=== PATIENT | male | born 1985 | race Caucasian/White ===

== ENCOUNTER 2016-04-19 16:51 | Inpatient (IN) | payer MEDICAID, OTHER ==
[~2016-04-19] VITALS: Ht 177.8 cm; Wt 76.5 kg
[~2016-04-19 16:51] MED LIST: DEPA500T OR; DEPA500T2 OR; RISP2TAB12 OR; TRAZ100T OR
[2016-04-19 18:08] LABS: MEAN CORPUSCULAR HEMOGLOBIN 33.1 pg (27.0-33.0); MEAN CORPUSCULAR HGB CONC 35.3 g/dl (32.0-36.5); MEAN CORPUSCULAR VOLUME 93.8 fl (80.0-96.0); RED CELL DISTRIBUTION WIDTH 11.2 % (11.5-14.5); WHITE BLOOD COUNT 6.6 K/mm3 (4.0-10.0)
[2016-04-19 18:30] LABS: ALBUMIN/GLOBULIN RATIO 1.54 (1.00-1.93); ALKALINE PHOSPHATASE 66 U/L (45-117); ALT/SGPT 22 U/L (12-78); ANION GAP 11 MEQ/L (8-16); AST/SGOT 23 U/L (15-37); BILIRUBIN,DIRECT 0.2 MG/DL (0.0-0.2); BILIRUBIN,TOTAL 0.7 MG/DL (0.2-1.0); BLOOD UREA NITROGEN 7 MG/DL (7-18); CALCIUM LEVEL 8.4 MG/DL (8.5-10.1); CARBON DIOXIDE LEVEL 23 MEQ/L (21-32); CHLORIDE LEVEL 107 MEQ/L (98-107); CREATININE FOR GFR 0.84 MG/DL (0.70-1.30); GLOMERULAR FILTRATION RATE > 60.0 (>60); GLUCOSE, FASTING 96 MG/DL (70-105); POTASSIUM SERUM 3.8 MEQ/L (3.5-5.1); SODIUM LEVEL 141 MEQ/L (136-145); TOTAL PROTEIN 6.6 GM/DL (6.4-8.2)
[2016-04-19] MEDS ORDERED: HALOPERIDOL 10 MG TAB PO STA (19:11)
[2016-04-19] MEDS ORDERED: diphenhydrAMINE 25 MG CAP PO ONE (19:15)
[2016-04-19 19:16] LABS: METHADONE URINE NEGATIVE (NEGATIVE)
[2016-04-19] MEDS ORDERED: diphenhydrAMINE INJ 50MG/ML VIAL (J1200) IM STA ×2 (19:58→21:48)
[2016-04-19] MEDS ORDERED: LORazepam 2 MG/ML VIAL (J2060) IM STA ×2 (19:58→21:48)
[2016-04-19] MEDS ORDERED: SERT-138 PO (20:45)
[2016-04-19] MEDS ORDERED: MOM 30ML SUSPENSION UDC PO PRN (20:45)
[2016-04-19] MEDS ORDERED: NICOTINE 21MG/24HR 1 EA TRANSDERMAL TD ONE (21:00)
[2016-04-19] MEDS ORDERED: HALOPERIDOL 5 MG/ML VIAL (J1630) IM STA (21:48)
[2016-04-20] MEDS ORDERED: LORazepam 2 MG/ML VIAL (J2060) IM STA (05:30)
[2016-04-20] MEDS ORDERED: diphenhydrAMINE INJ 50MG/ML VIAL (J1200) IM STA (05:30)
[2016-04-20] MEDS ORDERED: HALOPERIDOL 5 MG/ML VIAL (J1630) IM STA (05:30)
[2016-04-20 07:10] VITALS: BP 127/77
[2016-04-20] MEDS: MULTIVITAMINS/MINERALS THERAP 1 TAB PO SCH (09:00)
[2016-04-20] MEDS: THIAMINE 100 MG TAB PO SCH (09:00)
[2016-04-20] MEDS: LORazepam 2 MG TAB PO PRN ×2 (13:46→17:46)
[2016-04-20] MEDS: ACETAMINOPHEN TAB 650MG DOSE (2X325MG) PO PRN (13:47)
[2016-04-20] MEDS: HALOPERIDOL 5 MG TAB PO PRN ×2 (13:47→17:46)
[2016-04-20] MEDS: diphenhydrAMINE 50 MG CAP PO PRN (17:46)
[2016-04-20] MEDS: NICOTINE 21MG/24HR 1 EA TRANSDERMAL TD SCH (17:46)
[2016-04-20 18:00] VITALS: BP 110/52
[2016-04-21] MEDS: traZODone 50 MG TAB PO PRN ×2 (01:18→21:41)
[2016-04-21] MEDS: HALOPERIDOL 5 MG TAB PO PRN ×3 (01:18→16:30)
[2016-04-21] MEDS: LORazepam 2 MG TAB PO PRN ×3 (01:18→19:54)
[2016-04-21] MEDS: diphenhydrAMINE 50 MG CAP PO PRN ×3 (01:18→19:54)
[2016-04-21] MEDS: NICOTINE 21MG/24HR 1 EA TRANSDERMAL TD SCH (07:44)
[2016-04-21] MEDS: MULTIVITAMINS/MINERALS THERAP 1 TAB PO SCH (09:00)
[2016-04-21] MEDS: THIAMINE 100 MG TAB PO SCH (09:00)
[2016-04-21] MEDS: ACETAMINOPHEN TAB 650MG DOSE (2X325MG) PO PRN (14:55)
[2016-04-21 18:00] VITALS: BP 118/68
[2016-04-22 06:19] VITALS: BP 116/71
[2016-04-22] MEDS: THIAMINE 100 MG TAB PO SCH (08:25)
[2016-04-22] MEDS: MULTIVITAMINS/MINERALS THERAP 1 TAB PO SCH (08:25)
[2016-04-22] MEDS: NICOTINE 21MG/24HR 1 EA TRANSDERMAL TD SCH (09:00)
[2016-04-22] MEDS: ACETAMINOPHEN TAB 650MG DOSE (2X325MG) PO PRN ×2 (10:20→20:17)
[2016-04-22] MEDS: MAALOX 30 ML SUSP *UDC PO PRN (13:32)
[2016-04-22] MEDS: HALOPERIDOL 5 MG TAB PO PRN (17:20)
[2016-04-22] MEDS: diphenhydrAMINE 50 MG CAP PO PRN (17:21)
--- NOTE | 2016-04-22 17:25 | HPE ---
DATE OF ADMISSION: 04/19/2016 HISTORY OF THE PRESENT ILLNESS: Please refer to psychiatric history and evaluation. This examination and history performed 04/20/2016 is intended for medical issues which may need treatment, followup, or consult on this 30-year-old male. PRIMARY CARE PROVIDER: Dr. Rodriguez in [place]. ALLERGIES: No known allergies. SOCIAL HISTORY: He is single. He would not answer if he drank or smoked drugs. He was slightly belligerent and uncooperative. Recreational drugs: Urine was positive for marijuana. PAST MEDICAL HISTORY: Bipolar disorder. PAST SURGICAL HISTORY: Unknown; he would not answer. HOME MEDICATIONS: - sertraline 100 mg by mouth daily LABORATORY STUDIES: WBC 6.6, hemoglobin 16.2, hematocrit 45.9, platelets 259. Electrolytes were normal. BUN and creatinine was 7 and 0.84. Calcium was 8.4. Urine was positive for cannabinoids. FAMILY HISTORY: Noncontributory. REVIEW OF SYSTEMS: The patient was uncooperative, slightly belligerent, agitated. He did not participate in review of systems. PHYSICAL EXAMINATION: He did allow a limited physical exam. A 30-year-old male, alert and oriented. Height 70 inches, weight 79.37 kg. Body mass index (BMI) 25.1. Blood pressure 132/77, pulse 90, respirations 16, temperature 96.7, oxygen saturation 97% on room air. The patient is alert and oriented times three. Pupils are equal and reactive to light. Extraocular movements intact. Cornea and sclerae clear. Conjunctivae is normal. No facial asymmetry. Pharynx: Tongue and gums pink and moist. Tongue is midline. Neck is supple without lymphadenopathy. No thyromegaly. No goiter. Chest is clear to auscultation without wheeze or retractions. Heart is regular. Abdomen is benign. Bowel sounds are positive. Genital/Rectal: Not done. Extremities show equal strength, full range of motion. No cyanosis, clubbing or edema. He had a few superficial abrasions on the back of his hands. Peripheral pulses equal and palpable bilaterally. IMPRESSION AND PLAN: Psychiatric plan per psychiatry. No acute medical issues.
[2016-04-22] MEDS: LORazepam 2 MG TAB PO PRN (17:45)
[2016-04-22 18:00] VITALS: BP 131/82
--- NOTE | 2016-04-22 18:58 | HPEPDOC ---
[facility] History & Physical History and Physical DATE OF ADMISSION: Apr 19, 2016 at 20:31 CHIEF COMPLAINT: "My mother's boyfriend was trashing my mother's house and that made me mad." HISTORY OF THE PRESENT ILLNESS: Patient is a 30-year-old male who is unable to answer typewriter assembler's questions directly pertaining to events which led to his current hospitalization. Patient does confirm that he has had 1 prior hospitalization in 2009 for presentation of similar symptoms. Per ER record, [facility] called police for what they believe to be substance-induced psychosis and patient was brought in to [facility] ER. Patient was uncooperative in the emergency room, exhibiting restless, agitated behavior and engaged in yelling and spitting, displayed depressed, elevated, and euphoric moods, paranoia. Patient is calm and makes effort to be cooperative at time of assessment, denies experiencing current anxiety or depression, denies suicidal and homicidal ideation, denies audiovisual hallucinations, and denies urge to engage in self-injurious behavior. Patient denies history of suicide attempt or self-injurious behavior. Per ER record patient has experienced the following symptoms/problems within the past 2 weeks: Anger, decreased appetite, depressed mood, drug abuse, hallucinations, helpless/hopelessness, distracted behavior and hyperactivity, medication noncompliance, poor concentration, psychosis, reduced sleep, and suicidal ideation. Per ER record, patient may have also stolen his mother's boyfriends lithium medication. Patient had apparently attempted to seek treatment at [facility], for some reason ended up at primary care who prescribed patient Zoloft. Per ER report, patient's mother had indicated to ER staff the patient had become increasingly bizarre for the past 2 weeks talking to himself and God, isolating to home, labile mood, drug use, believes that demons were going to "get everyone," and at one point broke a clock in effort to "set time back." ER report also indicates that patient has been noncompliant with treatment and medications since his discharge from inpatient treatment in 2009 at which time he was discharged with a diagnosis of bipolar disorder. Patient endorses history of discomfort in social settings, denies panic, impulse control, compulsive behavior, irritability and agitation, denies history of being aggressive toward others and indicates he does not have access to weapons. Patient states he has been struggling with sleep challenges, both latency and maintenance. Patient denies symptoms of reexperiencing, avoidance, and hypervigilance, denies dissociative symptoms and describes his mood is level denying symptoms of hypomania and lovely. Patient describes his appetite as "good," and denies challenges with concentration and focus. Patient informed typewriter assembler during assessment that his primary care had been prescribing him Zoloft 100 mg po q day. Patient states medication was "very effective," notes current symptoms began when patient abruptly discontinued medication approximately 2 weeks ago. Patient states he had been taking Zoloft for about one month. Patient denies all symptoms of mood lability in connection with medication, informs typewriter assembler "I only started to have a problem with my mood when I got here and they wouldn't let me go." After completing assessment typewriter assembler consulted with safety aids, behavioral health worker, and patient's nurse who agreed with typewriter assembler's assessment that patient appeared safer discontinuing one-to-one observation. However, later in shift, typewriter assembler was informed by marine safety officer that patient had been making threats against staff. Patient was placed back on one-to-one observation, will reevaluate need to continue in morning. PAST PSYCHIATRIC HISTORY: Prior Psychiatric Disorder: Bipolar disorder, mixed, polysubstance use disorder , impulse control disorder, MDD, oppositional defiant disorder, personality disorder, treatment noncompliance Outpatient Treatment: [facility] 7 years ago, until recently was seeing his PCM who was prescribing patient Zoloft Suicidal/Self injurious: Patient denies history of suicide attempts, per EMR records, has a history of threatening family members when agitated, at one point plan to kill his stepfather and then hang himself Psychotropic Medication History: Patient was discharged from inpatient treatment in 2009 on a medication regimen including Depakote 500 mg po BID, Risperdal 2 mg po hs, and trazodone 100 mgpo hs. Patient indicates he "hated" the medications. Was recently prescribed Zoloft by PCM. ALLERGIES: Please see below. HOME MEDICATIONS: Per record as follows: See below PAST MEDICAL/SURGICAL HISTORY: Asthma. Patient denies history of seizure or head injury, has scattered abrasions to hands. FAMILY PSYCHIATRIC HISTORY: Patient declines to provide specific answers, indicates he has had multiple family members who have experienced mental illness and whom have made suicide attempts and committed suicide. SOCIAL HISTORY: Patient indicates he was born and raised in the [facility], has lived in several locations which she declines to elaborate on, states he currently lives with his mother. Patient denies history of abuse, trauma, or witnessing domestic violence in the home while growing up. Patient states he is never had a girlfriend with 3 children, is evasive regarding when relationship ended, indicates he has no children of his own. Patient states he completed the 11th grade in high school and completed the GED. 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 Patient states he has friends in the area and supportive family, indicates he feels he has an adequate support system. SUBSTANCE ABUSE HISTORY: Patient states he smokes approximately half a pack of cigarettes per day, smokes marijuana 2-3 times per week, denies all other current substance use or abuse. Patient notes she quit heroin approximately 8 months ago, states he snorted, denies IV use, describes drug use background including smoking crack cocaine, snorting heroin and taking pills. Per EMR, however, patient also has history of using alcohol, PCP, methamphetamine. LEGAL HISTORY: Patient denies VITAL SIGNS: B/P 116/71, P 93, R 16, T 96.6. LABORATORY DATA: Please see below. Labs on admission indicates elevated MCH, low RDW, calcium Valproic acid 04/19/16 low at 3.0 UDS positive for cannabinoids [place] level ordered date of entry EKG pending MENTAL STATUS EXAMINATION: Patient is a 30-year old male, who is calm, cooperative at times, evasive and refusing to answer questions at other times, appears disheveled, dressed in hospital clothing, makes poor eye contact, ambulates with steady gait, appears stated age. Speech: Is pressured at times, somewhat tangential, of normal rhythm and volume , coherent. Language skills are intact. Thought processes: Generally clear, goal-directed at times it other times tangential, disorganized at times Thought content: At times logical, at times illogical, did not appear to be responding to internal stimuli at time of assessment Abstract reasoning, and computation: Requires further evaluation. Description of associations: Loose, tangential, generally redirectable. Description of abnormal or psychotic thoughts: denies hallucinations, delusions , preoccupation with violence, homicidal or suicidal ideation, and obsessions, some grandiosity observed and marine safety officer informed typewriter assembler that patient had made threats against staff. Judgment: Poor. Insight: very limited/good/fair/poor. Orientation to time, place and person. Recent and remote memory: Requires further evaluation Attention span and concentration: Limited. Language: Normal. Fund of knowledge: Requires further evaluation. Mood: "Amazing, I'm so happy that I'm getting help now." Patient appears depressed and anxious, mood lability noted. Affect: Blunted. DIAGNOSES: Unspecified mood disorder, polysubstance use disorder, rule out bipolar disorder, mixed, rule out substance-induced mood disorder, rule out oppositional defiance disorder, rule out impulse control disorder, rule out MDD with psychotic features ASSESSMENT: Patient was taken off of one-to-one observation temporarily but placed back on one-to-one observation when it was made known to this typewriter assembler that patient was making threats against staff. Patient attempted to attend 1 group today and walked out, return to his room, has been isolative to room, calm and cooperative for most of day, however, became agitated later in shift, was provided with PRN medications to which she responded well and denied medication side effects. Patient denies suicidal and homicidal ideation but will remain on one-to-one with reevaluation to occur tomorrow morning. Will monitor patient's response to PRN cocktail and evaluate patient as he continues to clear from what appears to be a substance-induced mood episode. Patient denies medication side effects. Medication options were discussed with patient who is currently refusing to consider medications, will readdress with patient tomorrow. Patient is notably calmer and more cooperative than he was in the emergency room and, per EMR, continues to stabilize. Will evaluate patient safety, resolution of agitation, suicidal and homicidal ideation, and discharge readiness. care coordinator will begin collecting collateral information to facilitate effective treatment and discharge planning for patient. Patient states when he is prepared for discharge he plans to return home with mother and participate in outpatient medication management services. PROBLEM LIST: Suicidal/homicidal ideation Depression Anxiety Aggression Self-care deficit Substance abuse Lovely Poor impulse control Ineffective coping Altered mental status Noncompliance INITIAL TREATMENT PLAN: 1. Patient was admitted on a 9.39 legal status. 2. Complete history was obtained. 3. With patients permission, family will be contacted and database will be expanded. 4. Patients medication regimen will be reviewed and changed accordingly. 5. Patient will be provided with protected environment. 6. Patient will be treated with individual, group, and milieu therapies. 7. Patient will receive supportive psych-education. 8. Discharge planning will commence immediately. 9. Outpatient follow-up treatment will be strongly recommended. 10. The initial treatment plan will focus initially on: * Depression. * Risk for suicide. * Substance abuse. ESTIMATED LENGTH OF STAY: 5-7 DAYS. TIME SPENT COUNSELING AND COORDINATING INITIAL CARE: 50 minutes. Medications Scheduled Sertraline HCl (Sertraline HCl) 100 Mg Tab 100 MG PO DAILY (Reported) Allergies Coded Allergies: No Known Allergies (Verified Allergy, Unknown, 11/21/09) Dodie Fontaine Apr 22, 2016 18:58
[2016-04-22] MEDS: traZODone 50 MG TAB PO PRN (20:17)
[2016-04-23 06:00] VITALS: BP 135/71
[2016-04-23] MEDS: ACETAMINOPHEN TAB 650MG DOSE (2X325MG) PO PRN ×2 (06:27→17:33)
[2016-04-23] MEDS: MULTIVITAMINS/MINERALS THERAP 1 TAB PO SCH (07:59)
[2016-04-23] MEDS: THIAMINE 100 MG TAB PO SCH (07:59)
[2016-04-23] MEDS: NICOTINE 21MG/24HR 1 EA TRANSDERMAL TD SCH (08:00)
[2016-04-23] MEDS: HALOPERIDOL 5 MG TAB PO PRN ×2 (09:40→17:32)
--- NOTE | 2016-04-23 15:53 | IPNPDOC ---
[facility] Progress Note Progress Note DATE OF SERVICE: 04/23/16 HISTORY: Director Of Curriculum met with patient today to assess treatment progress on the inpatient unit. Patient appears calm her and consultation with staff indicates that patient has not been a behavioral management problem and is no longer making threats directed towards staff. One-to-one observation status was discontinued. Patient has utilized PRN Haldol 1 today, is calm and cooperative at time of interaction. Patient states he has made efforts to attend groups, walked out of a group yesterday and states he left group this morning due to elbow pain. Patient is superficially compliant, denies symptoms of anxiety and depression, denies suicidal and homicidal ideation, denies audiovisual hallucinations, and denies urge to engage in self-injurious behavior. Director Of Curriculum attempted to discuss medication options with patient who stated, "I'll take whatever you want me to take," then noted he is not interested in taking medication regimen (Depakote and Risperdal) on which he was discharged from Hospital during last inpatient treatment. Patient continues to present as disorganized and is tangential, is not observed to be responding to internal stimuli at time of interaction, however, per staff report symptoms have been observed in addition to congregational preoccupation. Patient denies irritability, agitation, and denies mood lability. Patient reports difficulty with sleep maintenance, states appetite, concentration and focus, and energy level are stable. VITALS: See below NEW TEST RESULTS: Please see below. Labs on admission indicates elevated MCH, low RDW, calcium. Patient reports history of asthma, denies history of seizure or head injury, has scattered abrasions to hands. Valproic acid 04/19/16 low at 3.0 [place] level 04/22/16 low at 0.2 UDS positive for cannabinoids [place] level ordered date of entry EKG pending CURRENT MEDICATIONS: See below MENTAL STATUS EXAMINATION: Patient is a 30-year old male, who is calm, cooperative at times, evasive, superficially compliant, superficially bright, appears disheveled, dressed in hospital clothing, makes poor eye contact, ambulates with steady gait, appears stated age. Speech: Is pressured at times, somewhat tangential, of normal rhythm and volume , coherent. Language skills are intact. Thought processes: Generally clear, goal-directed at times it other times tangential, disorganized at times Thought content: At times logical, at times illogical, did not appear to be responding to internal stimuli at time of assessment Abstract reasoning, and computation: Requires further evaluation. Description of associations: Loose, tangential, generally redirectable. Description of abnormal or psychotic thoughts: denies hallucinations, delusions , preoccupation with violence, homicidal or suicidal ideation, and obsessions, some grandiosity observed. Judgment: Poor. Insight: Poor. Orientation to time, place and person. Recent and remote memory: Requires further evaluation Attention span and concentration: Limited. Language: Normal. Fund of knowledge: Requires further evaluation. Mood: "I feel fine, I think I should be discharged." Patient appears depressed and anxious, mood lability noted. Affect: Blunted. DIAGNOSES: Unspecified mood disorder, polysubstance use disorder, rule out bipolar disorder, mixed, rule out substance-induced mood disorder, rule out oppositional defiance disorder, rule out impulse control disorder, rule out MDD with psychotic features ASSESSMENT: Patient was taken off of one-to-one observation today. Patient attempted to attend 1 group today but left group complaining of elbow pain and return to his room. Patient remains isolative but has been calm and cooperative , displaying no signs of aggression or agitation. Patient has taken Haldol PRN 1 today with good effect, has not needed Ativan. Patient denies medication side effects. Patient continues to clear, appears less disorganized than yesterday, is able to engage better for assessment purposes, however, remains superficial in his interactions, minimizes his symptoms, and states he feels he does not need to be in the hospital. Patient continues to report sleep related challenges , is agreeable to trialing Seroquel at bedtime in effort to improve sleep and stabilize mood. Will continue to monitor patient's response to PRN medications and Seroquel as he continues to clear from what appears to be a substance- induced mood episode. Will monitor patient's response to medications, medication side effects, and will evaluate patient safety, resolution of suicidal and homicidal ideation, and discharge readiness. stars coordinator will continue to collect collateral information to facilitate effective treatment and discharge planning for patient. Patient states when discharged he plans to return home with mother and participate in outpatient medication management services. MANAGEMENT PLAN: Initiate med trial Seroquel 100 mg po q hs. Continue PRN medications to address anxiety/agitation/psychosis as needed. Maintain safety precautions Patient to attend groups and participate in unit programming to develop coping strategies Engage patient in discharge planning process and arrange meeting with support system to ensure safe discharge planning when appropriate Patient to follow up with PCM upon discharge TIME SPENT: 35 minutes Vital Signs Vital Signs Date Time Temp Pulse Resp B/P Pulse Ox O2 Delivery O2 Flow Rate FiO2 04/23/16 06:00 95.8 83 16 135/71 04/20/16 05:55 Room Air 04/19/16 20:59 97 Laboratory Data 24H Labs Laboratory Tests 2 04/22/16 19:32: [place] Level < 0.20L Current Medications Current Medications Acetaminophen (Tylenol Tab) 650 mg Q6HP PRN PO HEADACHE or DISCOMFORT Last administered on 04/23/16 06:27; Start 04/19/16 at 20:45; Stop 05/19/16 at 20:44 Al Hydrox/Mg Hydrox/Simethicone (Mylanta) 30 ml Q4HP PRN PO HEARTBURN/ INDIGESTION Last administered on 04/22/16 13:32; Start 04/19/16 at 20:45; Stop 05/19/16 at 20:44 Diphenhydramine HCl (Benadryl) 50 mg Q4HP PRN PO ANXIETY/AGITATION Last administered on 04/22/16 17:21; Start 04/20/16 at 17:45; Stop 05/20/16 at 17:44 Haloperidol (Haldol) 5 mg Q4HP PRN PO AGITATION Last administered on 04/23/16 09:40; Start 04/19/16 at 20:45; Stop 05/19/16 at 20:44 Home Med (Med Rec Complete!) ASDIRECTED XX ; Start 04/19/16 at 20:45; Stop 11/26 at 20:47; Status DC Lorazepam (Ativan) 2 mg Q4HP PRN PO ANXIETY Last administered on 04/22/16 17: 45; Start 04/19/16 at 20:45; Stop 04/26/16 at 20:44 Magnesium Hydroxide (Milk Of Magnesia) 30 ml DAILYPRN PRN PO CONSTIPATION; Start 04/19/16 at 20:45; Stop 05/19/16 at 20:44 Multivitamins (Theragram-M) 1 tab DAILY PO Last administered on 04/23/16 07:59 ; Start 04/20/16 at 09:00; Stop 05/20/16 at 08:59 Nicotine (Nicoderm Cq 21mg) 1 patch DAILY TD Last administered on 04/23/16 08: 00; Start 04/20/16 at 09:00; Stop 05/20/16 at 08:59 Thiamine HCl (Thiamine HCl) 100 mg DAILY PO Last administered on 04/23/16 07: 59; Start 04/20/16 at 09:00; Stop 05/20/16 at 08:59 Trazodone HCl (Desyrel) 50 mg QHSP PRN PO INSOMNIA Last administered on 20:17; Start 04/19/16 at 20:45; Stop 05/19/16 at 20:44 Allergies Coded Allergies: No Known Allergies (Verified Allergy, Unknown, 11/21/09) Dodie Fontaine Apr 23, 2016 15:53
[2016-04-23] MEDS: diphenhydrAMINE 50 MG CAP PO PRN (17:32)
[2016-04-23] MEDS: NICOTINE POLACRILEX 2 MG GUM PO PRN ×2 (17:32→22:23)
[2016-04-23 18:00] VITALS: BP 125/66
[2016-04-23] MEDS ORDERED: QUEtiapine FUMARATE 100 MG TAB PO SCH (21:00)
[2016-04-23] MEDS ORDERED: LORazepam 1 MG TAB PO STA (21:01)
[2016-04-23] MEDS: BENZTROPINE 1 MG TAB PO SCH (21:16)
--- NOTE | 2016-04-24 00:45 | ECGEPIP ---
Stationary ECG Study [facility] Test Date: 2016-04-23 Pat Name: EVELIN AVILES Department: Room: [place] [address] Gender: M Color Buffer: SANJUANITA : 1985 Requested By: Adelina Lopez Order Number: [id number] Reading MD: Terrance Rojas Measurements Intervals [place] Rate: 82 P: 52 SD: 176 QRS: 57 QRSD: 107 T: 47 QT: 357 QTc: 418 Interpretive Statements SINUS RHYTHM ST ELEVATION, PROBABLY EARLY REPOLARIZATION NO PRIOR TRACING IN THE SYSTEM Electronically Signed On 04-24-2016 0:44:53 EDT by Terrance Rojas
[2016-04-24] MEDS: NICOTINE POLACRILEX 2 MG GUM PO PRN ×8 (02:14→22:53)
[2016-04-24] MEDS: MAALOX 30 ML SUSP *UDC PO PRN (02:14)
[2016-04-24 06:00] VITALS: BP 131/75
[2016-04-24] MEDS: HALOPERIDOL 5 MG TAB PO PRN ×2 (06:25→21:41)
[2016-04-24] MEDS: diphenhydrAMINE 50 MG CAP PO PRN (06:25)
[2016-04-24] MEDS: LORazepam 2 MG TAB PO PRN (06:25)
[2016-04-24] MEDS: THIAMINE 100 MG TAB PO SCH (08:24)
[2016-04-24] MEDS: BENZTROPINE 1 MG TAB PO SCH (08:24)
[2016-04-24] MEDS: MULTIVITAMINS/MINERALS THERAP 1 TAB PO SCH (08:24)
[2016-04-24 18:00] VITALS: BP 133/67
--- NOTE | 2016-04-24 18:50 | IPNPDOC ---
[facility] Progress Note Progress Note DATE OF SERVICE: 04/24/16 HISTORY: Tire Fabricator met with patient today to assess treatment progress on the inpatient unit. Patient has requested PRn medications after verbal altercation on unit which was initiated by other patients. Patient was calm, no agitation expressed noted. Patient continues to make efforts to attend groups, remains superficially compliant, denies symptoms of anxiety and depression, denies suicidal and homicidal ideation, denies audiovisual hallucinations, and denies urge to engage in self-injurious behavior. Tire Fabricator attempted to discuss medication options with patient who stated, "my meds are working great," reiterated he is will not take mood stabilizer. Patient presents as less disorganized, less tangential, is not observed to be responding to internal stimuli at time of interaction, however, per staff report symptoms have been observed in addition to jain preoccupation. Patient denies irritability, agitation, and denies mood lability. Patient reports difficulty with sleep maintenance, states appetite, concentration and focus, and energy level are stable. Of note: Nursing staff have indicated patient may be medication seeking. Patient reported EPS symptoms last night, division officer weapons department provider was called and patient was given ativan. Patient has apparently made request for prn medications without exhibiting symptoms of anxiety/agitation. VITALS: See below NEW TEST RESULTS: Please see below. Labs on admission indicates elevated MCH, low RDW, calcium. Patient reports history of asthma, denies history of seizure or head injury, has scattered abrasions to hands. Valproic acid 04/19/16 low at 3.0 [facility] level 04/22/16 low at 0.2 UDS positive for cannabinoids [facility] level ordered date of entry 04/24/[address] ELEVATION, PROBABLY EARLY REPOLARIZATION NO PRIOR TRACING IN THE SYSTEM CURRENT MEDICATIONS: See below MENTAL STATUS EXAMINATION: Patient is a 30-year old male, who is calm, cooperative at times, evasive, superficially compliant, superficially bright, displays improved hygiene, dressed in hospital clothing, makes improved eye contact, ambulates with steady gait, appears stated age. Speech: Is pressured at times, somewhat tangential, of normal rhythm and volume , coherent. Language skills are intact. Thought processes: Generally clear, goal-directed at times it other times tangential, disorganized at times Thought content: At times logical, at times illogical, did not appear to be responding to internal stimuli at time of assessment Abstract reasoning, and computation: Requires further evaluation. Description of associations: Loose, tangential, generally redirectable. Description of abnormal or psychotic thoughts: denies hallucinations, delusions , preoccupation with violence, homicidal or suicidal ideation, and obsessions, some grandiosity observed. Judgment: Poor. Insight: Poor. Orientation to time, place and person. Recent and remote memory: Requires further evaluation Attention span and concentration: Limited. Language: Normal. Fund of knowledge: Requires further evaluation. Mood: "I'm great." Patient appears depressed and anxious, mood lability noted. Affect: Blunted, with some brightening. DIAGNOSES: Unspecified mood disorder, polysubstance use disorder, rule out bipolar disorder, mixed, rule out substance-induced mood disorder, rule out oppositional defiance disorder, rule out impulse control disorder, rule out MDD with psychotic features ASSESSMENT: Patient remains off of one-to-one observation, is attempting to attend groups, is visible walking hallways with other patients, no agitation or aggression. Patient continues to clear, appears less disorganized than yesterday , is able to engage better for assessment purposes, however, remains superficial in his interactions, minimizes his symptoms, and states he feels he does not need to be in the hospital. Patient states he is now sleeping well ( contrary to EMR), is agreable to seroquel dose increase in effort to improve sleep and stabilize mood. Will continue to monitor patient's use of and response to PRN medications and Seroquel as he continues to clear from what appears to be a substance-induced mood episode. Will monitor patient's response to medications, medication side effects, and will evaluate patient safety, resolution of suicidal and homicidal ideation, and discharge readiness. buildings and grounds coordinator will continue to collect collateral information to facilitate effective treatment and discharge planning for patient. Patient states when discharged he plans to return home with mother and participate in outpatient medication management services. MANAGEMENT PLAN: Increase Seroquel to 150 mg po q hs. Change PRN medications to q 6 hours and change ativan to 1 mg q 6 hours PRN for agitation. Discontinue Benadryl and add cogentin 1 mg po q 6 hours PRN for EPS. Maintain safety precautions Patient to attend groups and participate in unit programming to develop coping strategies Engage patient in discharge planning process and arrange meeting with support system to ensure safe discharge planning when appropriate Patient to follow up with PCM upon discharge TIME SPENT: 35 minutes Vital Signs Vital Signs Date Time Temp Pulse Resp B/P Pulse Ox O2 Delivery O2 Flow Rate FiO2 04/24/16 06:00 98.3 83 16 131/75 04/20/16 05:55 Room Air 04/19/16 20:59 97 Current Medications Current Medications Acetaminophen (Tylenol Tab) 650 mg Q6HP PRN PO HEADACHE or DISCOMFORT Last administered on 04/23/16 17:33; Start 04/19/16 at 20:45; Stop 05/19/16 at 20:44 Al Hydrox/Mg Hydrox/Simethicone (Mylanta) 30 ml Q4HP PRN PO HEARTBURN/ INDIGESTION Last administered on 04/24/16 02:14; Start 04/19/16 at 20:45; Stop 05/19/16 at 20:44 Benztropine Mesylate (Cogentin) 1 mg BID PO Last administered on 04/24/16 08: 24; Start 04/23/16 at 21:00; Stop 04/24/16 at 18:25; Status DC Benztropine Mesylate (Cogentin) 1 mg Q6HP PRN PO EPS; Start 04/24/16 at 18:30; Stop 05/24/16 at 18:29 Diphenhydramine HCl (Benadryl) 50 mg Q4HP PRN PO ANXIETY/AGITATION Last administered on 04/24/16 06:25; Start 04/20/16 at 17:45; Stop 04/24/16 at 18:41 ; Status DC Haloperidol (Haldol) 5 mg Q4HP PRN PO AGITATION Last administered on 04/24/16 06:25; Start 04/19/16 at 20:45; Stop 04/24/16 at 18:24; Status DC Haloperidol (Haldol) 5 mg Q6HP PRN PO AGITATION; Start 04/24/16 at 20:45; Stop 05/24/16 at 20:44 Home Med (Med Rec Complete!) ASDIRECTED XX ; Start 04/19/16 at 20:45; Stop 11/26 at 20:47; Status DC Lorazepam (Ativan) 1 mg Q6HP PRN PO AGITATION; Start 04/24/16 at 18:30; Stop at 18:29 Lorazepam (Ativan) 2 mg Q4HP PRN PO AGITATION Last administered on 04/24/16 06 :25; Start 04/19/16 at 20:45; Stop 04/24/16 at 18:32; Status DC Magnesium Hydroxide (Milk Of Magnesia) 30 ml DAILYPRN PRN PO CONSTIPATION; Start 04/19/16 at 20:45; Stop 05/19/16 at 20:44 Multivitamins (Theragram-M) 1 tab DAILY PO Last administered on 04/24/16 08:24 ; Start 04/20/16 at 09:00; Stop 05/20/16 at 08:59 Nicotine (Nicoderm Cq 21mg) 1 patch DAILY TD Last administered on 04/23/16 08: 00; Start 04/20/16 at 09:00; Stop 04/23/16 at 16:01; Status DC Nicotine (Nicorette) 2 mg Q2HP PRN PO NICOTINE WITHDRAWAL Last administered on 04/24/16 18:01; Start 04/23/16 at 16:00; Stop 05/23/16 at 15:59 Quetiapine Fumarate (SEROquel) 100 mg QHS PO Last administered on 04/23/16 21: 16; Start 04/23/16 at 21:00; Stop 04/24/16 at 18:24; Status DC Quetiapine Fumarate (SEROquel) 150 mg QHS PO ; Start 04/24/16 at 21:00; Stop at 20:59 Thiamine HCl (Thiamine HCl) 100 mg DAILY PO Last administered on 04/24/16 08: 24; Start 04/20/16 at 09:00; Stop 05/20/16 at 08:59 Trazodone HCl (Desyrel) 50 mg QHSP PRN PO INSOMNIA Last administered on 20:17; Start 04/19/16 at 20:45; Stop 04/23/16 at 15:54; Status DC Allergies Coded Allergies: No Known Allergies (Verified Allergy, Unknown, 11/21/09) Dodie Fontaine Apr 24, 2016 18:50 Dodie Fontaine Apr 24, 2016 18:50
[2016-04-24] MEDS ORDERED: QUEtiapine FUMARATE 50 MG TAB PO SCH (21:00)
[2016-04-24] MEDS: BENZTROPINE 1 MG TAB PO PRN (21:41)
[2016-04-24] MEDS: LORazepam 1 MG TAB PO PRN (21:41)
[2016-04-25 06:19] VITALS: BP 140/86
[2016-04-25] MEDS: THIAMINE 100 MG TAB PO SCH (08:22)
[2016-04-25] MEDS: NICOTINE POLACRILEX 2 MG GUM PO PRN ×6 (08:22→21:28)
[2016-04-25] MEDS: MULTIVITAMINS/MINERALS THERAP 1 TAB PO SCH (08:22)
[2016-04-25] MEDS: LORazepam 1 MG TAB PO PRN (14:52)
[2016-04-25] MEDS: ACETAMINOPHEN TAB 650MG DOSE (2X325MG) PO PRN (15:58)
[2016-04-25 18:00] VITALS: BP 147/74
--- NOTE | 2016-04-25 19:01 | IPNPDOC ---
[facility] Progress Note Progress Note DATE OF SERVICE: 04/25/16 HISTORY: Barn And Property Manager met with patient today to assess treatment progress on the inpatient unit. Patient has requested Ativan PRN for agitation this afternoon, story writer consulted with staff with no observations of agitation noted, Ativan PRN has been discontinued due to concerns of patient seeking medication. Patient is aware he now has hydroxyzine available to him in addition to PRN Haldol and Cogentin if needed. Patient informs story writer he is feeling "much better," has been observed to be visible on unit and attending groups. Patient remains superficially compliant, minimizes symptoms, is intermittently tangential and mood appears expansive. Patient states Seroquel continues to work well and denies medication side effects, is agreeable to dose increase. Patient states he is been sleeping well which is contrary to EMR, though sleep was improved last night after Seroquel dose increase. Patient denies symptoms of anxiety and depression, denies suicidal and homicidal ideation, denies audiovisual hallucinations, denies urge to engage in self-injurious behavior. Barn And Property Manager again attempted to discuss medication options with patient who denied interest in taking medications, reiterated he is not willing to take mood stabilizer due to "I hate them, their pollution.". Patient presents as less disorganized, does not appear to be responding to internal stimuli at time of interaction, however , is religiously preoccupied and staff has indicated they have observed symptoms of paranoia elated to patient believing a kitchen is placing food on his food tray that he does not like and/or is allergic to. Patient denies irritability, agitation, and denies mood lability. Patient states appetite, concentration and focus, and energy level are stable. Addendum: Attempts made to contact patient's mother to address medication, treatment and symptom history. Spoke with father who was unable to comment on patient's response to medications and past, verified that patient's recent med trial on Zoloft triggered symptoms of terri. Patient's father indicated patient had been doing well for years, had recently experienced social stressors including being kicked out of his girlfriend's house, termination of relationship, notes symptoms of depression began after aforementioned events, but father indicated symptoms were minimal and patient appeared to be managing. VITALS: See below NEW TEST RESULTS: Please see below. Labs on admission indicates elevated MCH, low RDW, calcium. Patient reports history of asthma, denies history of seizure or head injury, has scattered abrasions to hands. Valproic acid 04/19/16 low at 3.0 [facility] level 04/22/16 low at 0.2 UDS positive for cannabinoids [facility] level ordered date of entry 04/24/[address] ELEVATION, PROBABLY EARLY REPOLARIZATION NO PRIOR TRACING IN THE SYSTEM CURRENT MEDICATIONS: See below MENTAL STATUS EXAMINATION: Patient is a 30-year old male, who is calm, cooperative at times, evasive, superficially compliant, superficially bright, displays improved hygiene, dressed in hospital clothing, makes improved eye contact, ambulates with steady gait, appears stated age. Speech: Is pressured at times, somewhat tangential, of normal rhythm and volume , coherent. Language skills are intact. Thought processes: Generally clear, goal-directed at times it other times tangential, disorganized at times Thought content: At times logical, at times illogical, did not appear to be responding to internal stimuli at time of assessment Abstract reasoning, and computation: Requires further evaluation. Description of associations: Loose, tangential, generally redirectable. Description of abnormal or psychotic thoughts: denies hallucinations, delusions. Patient exhibits preoccupation with jewish. Patient denies homicidal or suicidal ideation, obsessions. Patient exhibits some grandiosity, possible symptoms of paranoia observed by staff. Judgment: Poor. Insight: Poor. Orientation to time, place and person. Recent and remote memory: Requires further evaluation Attention span and concentration: Limited. Language: Normal. Fund of knowledge: Requires further evaluation. Mood: "I'm feeling great, never better." Patient appears less depressed and anxious, mood is expansive, lability noted. Affect: Blunted, with some brightening. DIAGNOSES: Unspecified mood disorder, polysubstance use disorder, rule out bipolar disorder, mixed, rule out substance-induced mood disorder, rule out oppositional defiance disorder, rule out impulse control disorder, rule out MDD with psychotic features ASSESSMENT: Patient remains off of one-to-one observation, is now attending groups, is observed walking hallways socializing with other patients, no agitation or aggression. Patient continues to clear from Zoloft and/or substance use, appears less disorganized than yesterday, is able to engage better for assessment purposes, however, remains superficial in his interactions , minimizes his symptoms, exhibits expansive mood and reiterates he feels he does not need to be in the hospital. Patient states he is sleeping well ( contrary to EMR), is agreeable to seroquel dose increase in effort to further improve sleep and stabilize mood. Will continue to monitor patient's use of and response to PRN medications and Seroquel as he continues to clear from what appears to be a substance-induced mood episode. Will monitor patient's response to medications, medication side effects, and will evaluate patient safety, resolution of suicidal and homicidal ideation, and discharge readiness. supply coordinator will continue to collect collateral information to facilitate effective treatment and discharge planning for patient. Patient states when discharged he plans to return home with mother and participate in outpatient medication management services. MANAGEMENT PLAN: Increase Seroquel to 200 mg po q hs. Discontinue ativan 1 mg po q 6 hours PRN for agitation. Initiate med trial Seroquel 50 mg po q 6 hours PRN for anxiety/agitation Maintain safety precautions Patient to attend groups and participate in unit programming to develop coping strategies Engage patient in discharge planning process and arrange meeting with support system to ensure safe discharge planning when appropriate Patient to follow up with PCM upon discharge TIME SPENT: 35 minutes Vital Signs Vital Signs Date Time Temp Pulse Resp B/P Pulse Ox O2 Delivery O2 Flow Rate FiO2 04/25/16 06:19 97.9 120 20 140/86 Room Air 04/19/16 20:59 97 Current Medications Current Medications Acetaminophen (Tylenol Tab) 650 mg Q6HP PRN PO HEADACHE or DISCOMFORT Last administered on 04/25/16 15:58; Start 04/19/16 at 20:45; Stop 05/19/16 at 20:44 Al Hydrox/Mg Hydrox/Simethicone (Mylanta) 30 ml Q4HP PRN PO HEARTBURN/ INDIGESTION Last administered on 04/24/16 02:14; Start 04/19/16 at 20:45; Stop 05/19/16 at 20:44 Benztropine Mesylate (Cogentin) 1 mg BID PO Last administered on 04/24/16 08: 24; Start 04/23/16 at 21:00; Stop 04/24/16 at 18:25; Status DC Benztropine Mesylate (Cogentin) 1 mg Q6HP PRN PO EPS Last administered on 21:41; Start 04/24/16 at 18:30; Stop 05/24/16 at 18:29 Diphenhydramine HCl (Benadryl) 50 mg Q4HP PRN PO ANXIETY/AGITATION Last administered on 04/24/16 06:25; Start 04/20/16 at 17:45; Stop 04/24/16 at 18:41 ; Status DC Haloperidol (Haldol) 5 mg Q4HP PRN PO AGITATION Last administered on 04/24/16 06:25; Start 04/19/16 at 20:45; Stop 04/24/16 at 18:24; Status DC Haloperidol (Haldol) 5 mg Q6HP PRN PO AGITATION Last administered on 04/24/16 21:41; Start 04/24/16 at 20:45; Stop 05/24/16 at 20:44 Home Med (Med Rec Complete!) ASDIRECTED XX ; Start 04/19/16 at 20:45; Stop 11/26 at 20:47; Status DC Hydroxyzine HCl (Atarax) 50 mg Q6HP PRN PO anxiety/agitation; Start 04/25/16 at 20:00; Stop 04/25/16 at 20:00; Status DC Hydroxyzine HCl (Atarax) 50 mg Q6HP PRN PO anxiety/agitation; Start 04/25/16 at 21:00; Stop 05/25/16 at 20:59 Lorazepam (Ativan) 1 mg Q6HP PRN PO AGITATION Last administered on 04/25/16 14 :52; Start 04/24/16 at 18:30; Stop 04/25/16 at 16:59; Status DC Lorazepam (Ativan) 2 mg Q4HP PRN PO AGITATION Last administered on 04/24/16 06 :25; Start 04/19/16 at 20:45; Stop 04/24/16 at 18:32; Status DC Magnesium Hydroxide (Milk Of Magnesia) 30 ml DAILYPRN PRN PO CONSTIPATION; Start 04/19/16 at 20:45; Stop 05/19/16 at 20:44 Multivitamins (Theragram-M) 1 tab DAILY PO Last administered on 04/25/16 08:22 ; Start 04/20/16 at 09:00; Stop 05/20/16 at 08:59 Nicotine (Nicoderm Cq 21mg) 1 patch DAILY TD Last administered on 04/23/16 08: 00; Start 04/20/16 at 09:00; Stop 04/23/16 at 16:01; Status DC Nicotine (Nicorette) 2 mg Q2HP PRN PO NICOTINE WITHDRAWAL Last administered on 04/25/16 10:33; Start 04/23/16 at 16:00; Stop 04/25/16 at 12:15; Status DC Nicotine (Nicorette) 4 mg Q2HP PRN PO NICOTINE WITHDRAWAL Last administered on 04/25/16 16:00; Start 04/25/16 at 12:15; Stop 05/25/16 at 12:14 Quetiapine Fumarate (SEROquel) 100 mg QHS PO Last administered on 04/23/16 21: 16; Start 04/23/16 at 21:00; Stop 04/24/16 at 18:24; Status DC Quetiapine Fumarate (SEROquel) 150 mg QHS PO Last administered on 04/24/16 20: 19; Start 04/24/16 at 21:00; Stop 04/25/16 at 17:29; Status DC Quetiapine Fumarate (SEROquel) 200 mg QHS PO ; Start 04/25/16 at 21:00; Stop at 20:59 Thiamine HCl (Thiamine HCl) 100 mg DAILY PO Last administered on 04/25/16 08: 22; Start 04/20/16 at 09:00; Stop 05/20/16 at 08:59 Trazodone HCl (Desyrel) 50 mg QHSP PRN PO INSOMNIA Last administered on 20:17; Start 04/19/16 at 20:45; Stop 04/23/16 at 15:54; Status DC Allergies Coded Allergies: No Known Allergies (Verified Allergy, Unknown, 11/21/09) Dodie Fontaine Apr 25, 2016 19:01
[2016-04-25] MEDS ORDERED: hydrOXYzine 50 MG TAB PO PRN (20:00)
[2016-04-25] MEDS: HALOPERIDOL 5 MG TAB PO PRN (20:13)
[2016-04-25] MEDS: BENZTROPINE 1 MG TAB PO PRN (20:13)
[2016-04-25] MEDS: hydrOXYzine 50 MG TAB PO PRN (20:13)
[2016-04-25] MEDS ORDERED: QUEtiapine FUMARATE 200 MG TAB PO SCH (21:00)
[2016-04-26] MEDS: NICOTINE POLACRILEX 2 MG GUM PO PRN ×8 (02:43→21:11)
[2016-04-26] MEDS: BENZTROPINE 1 MG TAB PO PRN ×2 (02:45→09:29)
[2016-04-26] MEDS: hydrOXYzine 50 MG TAB PO PRN ×3 (02:45→23:03)
[2016-04-26] MEDS: HALOPERIDOL 5 MG TAB PO PRN ×2 (02:45→09:29)
[2016-04-26 06:14] VITALS: BP_SYST 137; BP_SYST 160; BP_DIAS 63; BP_DIAS 88
[2016-04-26 08:00] VITALS: BP 140/82
[2016-04-26] MEDS: MULTIVITAMINS/MINERALS THERAP 1 TAB PO SCH (08:08)
[2016-04-26] MEDS: THIAMINE 100 MG TAB PO SCH (08:09)
[2016-04-26] MEDS: ACETAMINOPHEN TAB 650MG DOSE (2X325MG) PO PRN ×3 (09:31→23:03)
[2016-04-26] MEDS: QUEtiapine FUMARATE 50 MG TAB PO PRN ×2 (12:25→22:32)
[2016-04-26 18:00] VITALS: BP 132/73
[2016-04-26] MEDS: DIVALPROEX 500MG *ER* TAB PO SCH (20:10)
[2016-04-26] MEDS: QUEtiapine FUMARATE 100 MG TAB PO SCH (20:10)
--- NOTE | 2016-04-26 20:27 | IPNPDOC ---
[facility] Progress Note Progress Note DATE OF SERVICE: 04/26/16 HISTORY: Business Line Controller met with patient today to assess treatment progress on the inpatient unit. Per EMR patient slept 1.5 hours last night, presents as more disorganized and tangential today, is irritable at times, no agitation or behavioral management challenges exhibited. Patient took Haldol and Cogentin PRN 's this morning, has been taking nighttime Seroquel, continues to refuse to take mood stabilizer. Patient has been visible on unit, walking the halls with peers, attending a few groups, remains superficially compliant, minimizes symptoms, mood remains expansive. Contrary to EMR, patient informs screen writer that Seroquel is working well and denies medication side effects. Patient indicates he has no anxiety or depression, is experiencing no audiovisual hallucinations, no suicidal or homicidal ideation, and denies urge to engage in self-injurious behavior. Patient informs screen writer he is symptom free and wants to be discharged home today. Business Line Controller again attempted to discuss medication options with patient who denied interest in taking medications, indicates he feels able to address his symptoms "naturally." Patient denies irritability, agitation, and mood lability. Patient states appetite, concentration and focus, and energy level are stable. Patient does not appear to be responding to internal stimuli at time of interaction, however, is religiously preoccupied and staff has indicated they have observed symptoms of paranoia. Patient denied symptoms of physical pain and presented with no signs of acute distress at time of interaction. 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 Clinical consultation was sought with Dr. Garcia during which patient reluctantly agreed to take Depakote at bedtime in addition to Seroquel dose increase in effort to improve sleep and stabilize mood. Addendum: Attempts made to contact patient's mother to address medication, treatment and symptom history. Business Line Controller spoke with patient's father by telephone on 04/25/16 who was unable to provide information on previous specific medication trials, verified that patient's recent med trial on Zoloft triggered symptoms of terri. Patient's father indicated patient had been doing well for years, had recently experienced social stressors including being kicked out of his girlfriend's house, termination of relationship, notes symptoms of depression began after aforementioned events, but father indicated symptoms were minimal and patient appeared to be managing prior to initiation of SSRI. VITALS: See below NEW TEST RESULTS: Please see below. Labs on admission indicates elevated MCH, low RDW, calcium. Patient reports history of asthma, denies history of seizure or head injury, has scattered abrasions to hands. Valproic acid 04/19/16 low at 3.0 [facility] level 04/22/16 low at 0.2 UDS positive for cannabinoids [facility] level ordered date of entry 04/24/[address] ELEVATION, PROBABLY EARLY REPOLARIZATION NO PRIOR TRACING IN THE SYSTEM CURRENT MEDICATIONS: See below MENTAL STATUS EXAMINATION: Patient is a 30-year old male, who is calm, cooperative at times, evasive, superficially compliant, superficially bright, displays adequate hygiene, dressed in hospital clothing, makes prolonged gaze eye contact, ambulates with steady gait, appears stated age. Speech: Is pressured, rapid at times, somewhat tangential, coherent. Language skills are intact. Thought processes: Increasingly disorganized, clear at times, intermittently tangential and goal-directed Thought content: At times logical, at times illogical, did not appear to be responding to internal stimuli at time of assessment Abstract reasoning: Limited. Description of associations: Loose, tangential, generally redirectable. Description of abnormal or psychotic thoughts: denies hallucinations, delusions. Patient exhibits preoccupation with buddhism. Patient denies homicidal or suicidal ideation, obsessions. Patient exhibits grandiosity, possible symptoms of paranoia observed by staff. Judgment: Poor. Insight: Poor. Orientation to time, place and person. Recent and remote memory: Requires further evaluation Attention span and concentration: Limited. Language: Normal. Fund of knowledge: Requires further evaluation. Mood: "I'm feeling great, never better. I'm sleeping fine and I don't need medication." Patient appears anxious, mood is expansive, lability noted. Affect: Blunted. DIAGNOSES: Unspecified mood disorder, polysubstance use disorder, rule out bipolar disorder, mixed, rule out substance-induced mood disorder, rule out oppositional defiance disorder, rule out impulse control disorder, rule out MDD with psychotic features ASSESSMENT: Patient remains off of one-to-one observation, is observed walking hallways at times socializing with other patients, no agitation or aggression. Patient continues to clear from Zoloft and/or substance use, appears increasingly disorganized, remains superficial in his interactions, minimizes his symptoms, exhibits expansive mood and reiterates he feels he does not need to be in the hospital. Patient states he is sleeping well (contrary to EMR), is agreeable to seroquel dose increase in effort to further improve sleep and stabilize mood. Patient today also reluctantly agrees to initiation of Depakote in effort to stabilize mood. Will continue to monitor patient's use of and response to PRN medications and Seroquel as he continues to clear from what appears to be a substance-induced mood episode. Will monitor patient's response to medications, medication side effects, and will evaluate patient safety, resolution of suicidal and homicidal ideation, and discharge readiness. global coordinator will continue to collect collateral information to facilitate effective treatment and discharge planning for patient. Patient states when discharged he plans to discharge to home with father and participate in outpatient medication management services. Per office services coordinator father has arranged [facility] for patient and wants patient to participate in [facility] outpatient services. MANAGEMENT PLAN: Initiate med trial Depakote ER 500 mg po q hs. Increase Seroquel to 300 mg po q hs. Initiate Seroquel 50 mg po q 6 hours PRN for agitation, continue hydroxyzine 50 mg po q 6 hours PRN anxiety/agitation. Discontinue Haldol and Cogentin. Maintain safety precautions Patient to attend groups and participate in unit programming to develop coping strategies Engage patient in discharge planning process and arrange meeting with support system to ensure safe discharge planning when appropriate Patient to follow up with PCM upon discharge TIME SPENT: 35 minutes Vital Signs Vital Signs Date Time Temp Pulse Resp B/P Pulse Ox O2 Delivery O2 Flow Rate FiO2 04/26/16 18:00 99.1 98 16 132/73 04/26/16 08:00 96 Room Air Current Medications Current Medications Acetaminophen (Tylenol Tab) 650 mg Q6HP PRN PO HEADACHE or DISCOMFORT Last administered on 04/26/16 16:25; Start 04/19/16 at 20:45; Stop 05/19/16 at 20:44 Al Hydrox/Mg Hydrox/Simethicone (Mylanta) 30 ml Q4HP PRN PO HEARTBURN/ INDIGESTION Last administered on 04/24/16 02:14; Start 04/19/16 at 20:45; Stop 05/19/16 at 20:44 Benztropine Mesylate (Cogentin) 1 mg BID PO Last administered on 04/24/16 08: 24; Start 04/23/16 at 21:00; Stop 04/24/16 at 18:25; Status DC Benztropine Mesylate (Cogentin) 1 mg Q6HP PRN PO EPS Last administered on 09:29; Start 04/24/16 at 18:30; Stop 05/24/16 at 18:29 Diphenhydramine HCl (Benadryl) 50 mg Q4HP PRN PO ANXIETY/AGITATION Last administered on 04/24/16 06:25; Start 04/20/16 at 17:45; Stop 04/24/16 at 18:41 ; Status DC Divalproex Sodium (Depakote Er) 500 mg QHS PO ; Start 04/26/16 at 21:00; Stop at 20:59 Haloperidol (Haldol) 5 mg Q4HP PRN PO AGITATION Last administered on 04/24/16 06:25; Start 04/19/16 at 20:45; Stop 04/24/16 at 18:24; Status DC Haloperidol (Haldol) 5 mg Q6HP PRN PO AGITATION Last administered on 04/26/16 09:29; Start 04/24/16 at 20:45; Stop 04/26/16 at 10:16; Status DC Home Med (Med Rec Complete!) ASDIRECTED XX ; Start 04/19/16 at 20:45; Stop 11/26 at 20:47; Status DC Hydroxyzine HCl (Atarax) 50 mg Q6HP PRN PO anxiety/agitation; Start 04/25/16 at 20:00; Stop 04/25/16 at 20:00; Status DC Hydroxyzine HCl (Atarax) 50 mg Q6HP PRN PO anxiety/agitation Last administered on 04/26/16 09:30; Start 04/25/16 at 21:00; Stop 05/25/16 at 20:59 Lorazepam (Ativan) 1 mg Q6HP PRN PO AGITATION Last administered on 04/25/16 14 :52; Start 04/24/16 at 18:30; Stop 04/25/16 at 16:59; Status DC Lorazepam (Ativan) 2 mg Q4HP PRN PO AGITATION Last administered on 04/24/16 06 :25; Start 04/19/16 at 20:45; Stop 04/24/16 at 18:32; Status DC Magnesium Hydroxide (Milk Of Magnesia) 30 ml DAILYPRN PRN PO CONSTIPATION; Start 04/19/16 at 20:45; Stop 05/19/16 at 20:44 Multivitamins (Theragram-M) 1 tab DAILY PO Last administered on 04/26/16 08:08 ; Start 04/20/16 at 09:00; Stop 05/20/16 at 08:59 Nicotine (Nicoderm Cq 21mg) 1 patch DAILY TD Last administered on 04/23/16 08: 00; Start 04/20/16 at 09:00; Stop 04/23/16 at 16:01; Status DC Nicotine (Nicorette) 2 mg Q2HP PRN PO NICOTINE WITHDRAWAL Last administered on 04/25/16 10:33; Start 04/23/16 at 16:00; Stop 04/25/16 at 12:15; Status DC Nicotine (Nicorette) 4 mg Q2HP PRN PO NICOTINE WITHDRAWAL Last administered on 04/26/16 18:56; Start 04/25/16 at 12:15; Stop 05/25/16 at 12:14 Quetiapine Fumarate (SEROquel) 50 mg Q6HP PRN PO AGITATION Last administered on 04/26/16 12:25; Start 04/26/16 at 10:15; Stop 05/26/16 at 10:14 Quetiapine Fumarate (SEROquel) 100 mg QHS PO Last administered on 04/23/16 21: 16; Start 04/23/16 at 21:00; Stop 04/24/16 at 18:24; Status DC Quetiapine Fumarate (SEROquel) 150 mg QHS PO Last administered on 04/24/16 20: 19; Start 04/24/16 at 21:00; Stop 04/25/16 at 17:29; Status DC Quetiapine Fumarate (SEROquel) 200 mg QHS PO Last administered on 04/25/16 20: 13; Start 04/25/16 at 21:00; Stop 04/26/16 at 10:16; Status DC Quetiapine Fumarate (SEROquel) 300 mg QHS PO Last administered on 04/26/16 20: 10; Start 04/26/16 at 21:00; Stop 05/26/16 at 20:59 Thiamine HCl (Thiamine HCl) 100 mg DAILY PO Last administered on 04/26/16 08: 09; Start 04/20/16 at 09:00; Stop 05/20/16 at 08:59 Trazodone HCl (Desyrel) 50 mg QHSP PRN PO INSOMNIA Last administered on 20:17; Start 04/19/16 at 20:45; Stop 04/23/16 at 15:54; Status DC Allergies Coded Allergies: No Known Allergies (Verified Allergy, Unknown, 11/21/09) Dodie Fontaine Apr 26, 2016 20:27
[2016-04-27] MEDS: MAALOX 30 ML SUSP *UDC PO PRN (00:55)
[2016-04-27] MEDS: NICOTINE POLACRILEX 2 MG GUM PO PRN ×7 (02:45→23:43)
[2016-04-27 06:44] VITALS: BP 143/69
[2016-04-27] MEDS: MULTIVITAMINS/MINERALS THERAP 1 TAB PO SCH (09:13)
[2016-04-27] MEDS: QUEtiapine FUMARATE 50 MG TAB PO PRN (09:13)
[2016-04-27] MEDS: THIAMINE 100 MG TAB PO SCH (09:13)
[2016-04-27] MEDS: ACETAMINOPHEN TAB 650MG DOSE (2X325MG) PO PRN ×2 (11:50→21:21)
[2016-04-27] MEDS: hydrOXYzine 50 MG TAB PO PRN ×2 (14:14→23:41)
[2016-04-27 18:00] VITALS: BP 115/57
[2016-04-27] MEDS: QUEtiapine FUMARATE 100 MG TAB PO SCH (20:08)
[2016-04-27] MEDS: DIVALPROEX 500MG *ER* TAB PO SCH ×2 (20:09→23:41)
[2016-04-28] MEDS: QUEtiapine FUMARATE 50 MG TAB PO PRN ×3 (02:22→18:13)
[2016-04-28] MEDS: NICOTINE POLACRILEX 2 MG GUM PO PRN ×6 (04:46→20:43)
[2016-04-28] MEDS: ACETAMINOPHEN TAB 650MG DOSE (2X325MG) PO PRN ×3 (04:48→18:13)
[2016-04-28 06:44] VITALS: BP 170/103
[2016-04-28] MEDS: MULTIVITAMINS/MINERALS THERAP 1 TAB PO SCH (07:39)
[2016-04-28] MEDS: hydrOXYzine 50 MG TAB PO PRN ×2 (07:39→19:14)
[2016-04-28] MEDS: THIAMINE 100 MG TAB PO SCH (07:39)
[2016-04-28 18:00] VITALS: BP 139/80
[2016-04-28] MEDS: QUEtiapine FUMARATE 100 MG TAB PO SCH (20:42)
[2016-04-28] MEDS: DIVALPROEX 500MG *ER* TAB PO SCH (20:42)
[2016-04-28] MEDS ORDERED: predniSONE 10 MG TAB PO SCH (21:00)
[2016-04-28 22:43] VITALS: BP 139/80
[2016-04-28] MEDS ORDERED: diphenhydrAMINE 50 MG CAP PO STA (23:16)
[2016-04-28 23:42] LABS: BASO % 0.4 % (0.0-1.0); EOS # 0.4 K/mm3 (0.0-0.50); EOS % 3.1 % (0.0-3.0); LARGE UNSTAINED CELL # 0.2 K/mm3 (0.0-0.4); LARGE UNSTAINED CELL % 1.8 % (0.0-4.0); LYMPH # 1.2 K/mm3 (1.5-6.5); LYMPH % 10.6 % (24.0-44.0); MEAN CORPUSCULAR HEMOGLOBIN 32.8 pg (27.0-33.0); MEAN CORPUSCULAR HGB CONC 34.7 g/dl (32.0-36.5); MEAN CORPUSCULAR VOLUME 94.3 fl (80.0-96.0); MONO # 0.7 K/mm3 (0.0-0.8); MONO % 5.8 % (0.0-5.0); NEUTROPHILS # 9.2 K/mm3 (1.8-7.7); NEUTROPHILS % 78.4 % (36.0-66.0); PLATELET COUNT, AUTOMATED 250 k/mm3 (150-450); RED CELL DISTRIBUTION WIDTH 11.6 % (11.5-14.5); WHITE BLOOD COUNT 11.7 K/mm3 (4.0-10.0)
[2016-04-28 23:59] LABS: ERYTHROCYTE SEDIMENTATION RATE 6 mm/hr (0-15)
[2016-04-29 00:15] LABS: ALBUMIN 3.7 GM/DL (3.2-5.2); ALBUMIN/GLOBULIN RATIO 1.23 (1.00-1.93); ALKALINE PHOSPHATASE 92 U/L (45-117); ALT/SGPT 57 U/L (12-78); ANION GAP 10 MEQ/L (8-16); AST/SGOT 28 U/L (15-37); BILIRUBIN,TOTAL 0.2 MG/DL (0.2-1.0); BLOOD UREA NITROGEN 16 MG/DL (7-18); CALCIUM LEVEL 8.6 MG/DL (8.5-10.1); CARBON DIOXIDE LEVEL 27 MEQ/L (21-32); CHLORIDE LEVEL 104 MEQ/L (98-107); CREATININE FOR GFR 1.12 MG/DL (0.70-1.30); GLOMERULAR FILTRATION RATE > 60.0 (>60); GLUCOSE, FASTING 97 MG/DL (70-105); POTASSIUM SERUM 4.2 MEQ/L (3.5-5.1); SODIUM LEVEL 141 MEQ/L (136-145); TOTAL PROTEIN 6.7 GM/DL (6.4-8.2)
--- NOTE | 2016-04-29 00:42 | CR.PDOC ---
[facility] Consultation Consultation DATE OF CONSULTATION: Apr 19, 2016 at 17:58 REASON FOR CONSULTATION/CHIEF COMPLAINT: Called to evaluate bilateral feet redness and swelling HISTORY OF PRESENT ILLNESS: Patient is a 30 year old male with a PMHx of bipolar disorder and history of right lower extremity DVT who was admitted for that. Patient has been experiencing bilateral lower extremity redness and swelling for 3 days. He notes that it has occurred after he has worn new slippers that his sister brought him from [facility]. He denies any fevers, chills, nausea, vomiting, abdominal pain, constipation, diarrhea or urinary symptoms. ALLERGIES: Please see below. HOME MEDICATIONS: Please see below. PAST MEDICAL HISTORY: Bipolar disorder and history of right lower extremity DVT PAST SURGICAL HISTORY: None FAMILY HISTORY: - Unknown SOCIAL HISTORY: - Repots social alchol, smoker of 1 ppd since age 16, Abuses crack / marijuana and other pills - Denies recent travel or sick contacts - Lives with father REVIEW OF SYSTEMS: As stated in HPI PHYSICAL EXAMINATION: - Vitals: BP 139/60, HR 102, RR 16, Sat 96RA, Temp 99.3F - General: Sitting on exam table, No acute distress, Speaking in full sentences , AAOx3 - HEENT: NC, AT, PERRLA, EOMI - CVS: RRR, +S1S2, - Murmurs / rubs / gallops - Lungs: Fair air entry bilaterally, Clear to auscultation, No wheezing / rales / rhonchi - Abdomen: Soft, Non-distended, Non-tender, + Bowel sounds x 4 - Extremities: + PPx4, Bilateral feet redness, non-pitting edema, no calf tenderness - Neuro: No focal motor or sensory deficit - Skin: No visible rashes ~ LABORATORY DATA: Please see below. ASSESSMENT/PLAN: Bilateral feet redness and non-pitting edema likely 2/2 allergic reaction - Occurred at the same timing of new slippers - Advised to stop using slippers - Lab shows mild leukocytosis and elevation in CRP - Will start steroid cream PRN Bipolar disorder History of right lower extremity DVT DVT prophylaxis - Patient is ambulating ~ Vital Signs/I&O Vital Signs Date Time Temp Pulse Resp B/P Pulse Ox O2 Delivery O2 Flow Rate FiO2 04/28/16 22:43 99.3 102 16 139/80 96 Room Air Laboratory Data Labs 24H Laboratory Tests 2 04/28/16 23:37: Blood Urea Nitrogen 16, Creatinine 1.12, Sodium Level 141, Potassium Level 4.2, Chloride Level 104, Carbon Dioxide Level 27, Calcium Level 8.6, Aspartate Amino Transf (AST/SGOT) 28, Alanine Aminotransferase (ALT/SGPT) 57, Alkaline Phosphatase 92, Total Bilirubin 0.2, Total Protein 6.7, Albumin 3.7, Albumin/ Globulin Ratio 1.23, Anion Gap 10, B-Type Natriuretic Peptide < 5.0, White Blood Count 11.7H, Red Blood Count 4.54, Hemoglobin 14.9, Hematocrit 42.8, Mean Corpuscular Volume 94.3, Mean Corpuscular Hemoglobin 32.8, Mean Corpuscular Hemoglobin Concent 34.7, Red Cell Distribution Width 11.6, Platelet Count 250, Neutrophils (%) (Auto) 78.4H, Lymphocytes (%) (Auto) 10.6L, Monocytes (%) (Auto ) 5.8H, Eosinophils (%) (Auto) 3.1H, Basophils (%) (Auto) 0.4, Neutrophils # ( Auto) 9.2H, Lymphocytes # (Auto) 1.2L, Monocytes # (Auto) 0.7, Eosinophils # ( Auto) 0.4, Basophils # (Auto) 0.0, C-Reactive Protein, Quantitative 7.49H, Erythrocyte Sedimentation Rate 6, Glomerular Filtration Rate > 60.0, Large Unclassified Cells # 0.2, Large Unclassified Cells % 1.8 CBC/BMP Laboratory Tests 04/28/16 23:37 Calcium Level 8.6, Aspartate Amino Transf (AST/SGOT) 28, Alanine Aminotransferase (ALT/SGPT) 57, Alkaline Phosphatase 92, Total Bilirubin 0.2, Total Protein 6.7, Albumin 3.7, Red Blood Count 4.54, Mean Corpuscular Volume 94.3, Mean Corpuscular Hemoglobin 32.8, Mean Corpuscular Hemoglobin Concent 34.7 , Red Cell Distribution Width 11.6, Neutrophils (%) (Auto) 78.4 H, Lymphocytes ( %) (Auto) 10.6 L, Monocytes (%) (Auto) 5.8 H, Eosinophils (%) (Auto) 3.1 H, Basophils (%) (Auto) 0.4, Neutrophils # (Auto) 9.2 H, Lymphocytes # (Auto) 1.2 L , Monocytes # (Auto) 0.7, Eosinophils # (Auto) 0.4, Basophils # (Auto) 0.0 Allergies Coded Allergies: No Known Allergies (Verified Allergy, Unknown, 11/21/09) Home Medications Scheduled Sertraline HCl (Sertraline HCl) 100 Mg Tab 100 MG PO DAILY (Reported) LUNA TOMAS MD Apr 29, 2016 00:42
[2016-04-29] MEDS: AUGMENTIN PO SCH ×4 (02:15→20:13)
[2016-04-29] MEDS: HYDROCORTISONE 1% CREAM 30 GM TOP PRN ×3 (02:16→19:04)
[2016-04-29] MEDS: ACETAMINOPHEN TAB 650MG DOSE (2X325MG) PO PRN ×4 (02:30→23:02)
[2016-04-29 06:31] VITALS: BP 129/89
[2016-04-29] MEDS: hydrOXYzine 50 MG TAB PO PRN ×3 (08:33→21:07)
[2016-04-29] MEDS: THIAMINE 100 MG TAB PO SCH (09:00)
[2016-04-29] MEDS: MULTIVITAMINS/MINERALS THERAP 1 TAB PO SCH (09:00)
[2016-04-29] MEDS: CETIRIZINE (ZyrTEC) 10 MG TAB PO SCH (09:00)
[2016-04-29] MEDS: NICOTINE POLACRILEX 2 MG GUM PO PRN ×4 (10:37→20:13)
[2016-04-29 11:04] LABS: BASO % 0.3 % (0.0-1.0); EOS # 0.2 K/mm3 (0.0-0.50); EOS % 1.6 % (0.0-3.0); LARGE UNSTAINED CELL # 0.2 K/mm3 (0.0-0.4); LARGE UNSTAINED CELL % 1.6 % (0.0-4.0); LYMPH # 0.9 K/mm3 (1.5-6.5); MEAN CORPUSCULAR HEMOGLOBIN 32.8 pg (27.0-33.0); MEAN CORPUSCULAR HGB CONC 34.2 g/dl (32.0-36.5); MEAN CORPUSCULAR VOLUME 95.7 fl (80.0-96.0); MONO # 0.8 K/mm3 (0.0-0.8); MONO % 5.8 % (0.0-5.0); NEUTROPHILS % 84.7 % (36.0-66.0); PLATELET COUNT, AUTOMATED 253 k/mm3 (150-450); RED CELL DISTRIBUTION WIDTH 11.6 % (11.5-14.5); WHITE BLOOD COUNT 14.2 K/mm3 (4.0-10.0)
--- NOTE | 2016-04-29 11:37 | IPNPDOC ---
Subjective Date Seen The patient was seen on 04/29/16. Subjective Chief Complaint/HPI The patient is a 30-year-old male admitted with a reason for visit of Bipolar D/ O; Manic Severe. Events since last encounter Reevaluating patient for his bilateral foot erythema and edema. Patient states his feet are already feeling better. Erythema is subsiding. He states he can feel the warmth subsiding as well. He states applying the hydrocortisone cream has been helpful. He stopped wearing the slippers and has been elevating his feet. Overall he states he is feeling much better. Objective Physical Examination General Exam: Positive: Alert Eye Exam: Positive: PERRLA ENT Exam: Positive: Atraumatic, Mucous membr. moist/pink, Pharynx Normal Chest Exam: Positive: Clear to auscultation, Normal air movement Heart Exam: Positive: Normal S1, Normal S2, Rate Normal, Regular Rhythm, Negative: Murmurs, Rubs Extremity Exam: Positive: Other (there is no calf pain tenderness or swelling.) Skin Exam: Positive: Other skin issue (there is erythema noted of his feet bilaterally with edema noted. Mild warmth is noted of the feet bilaterally extending to the ankles bilaterally. The patient is self reporting that this is improved. This is not extending up to the pretibial areas. No skin lesions. No skin breakdown.) Assessment /Plan Problems (1) Allergic reaction Status: Acute Problem Text: * This appears to have been an allergic reaction to the slippers he had been wearing. * He received Benadryl 50 mg by mouth. * Hydrocortisone cream 1% 3 times a day is ordered. He is aware to reapply currently. * Augmentin 250 mg by mouth 3 times a day is ordered. * Will monitor labs. * Will add Zyrtec 10 mg daily. Plan/VTE VTE Prophylaxis Ordered?: No (ambulatory) VS, I&O, 24H, Fishbone Vital Signs/I&O Vital Signs Date Time Temp Pulse Resp B/P Pulse Ox O2 Delivery O2 Flow Rate FiO2 04/29/16 06:31 99.0 110 18 129/89 04/28/16 22:43 96 Room Air Laboratory Data 24H LABS Laboratory Tests 2 04/28/16 23:37: Blood Urea Nitrogen 16, Creatinine 1.12, Sodium Level 141, Potassium Level 4.2, Chloride Level 104, Carbon Dioxide Level 27, Calcium Level 8.6, Aspartate Amino Transf (AST/SGOT) 28, Alanine Aminotransferase (ALT/SGPT) 57, Alkaline Phosphatase 92, Total Bilirubin 0.2, Total Protein 6.7, Albumin 3.7, Albumin/ Globulin Ratio 1.23, Anion Gap 10, B-Type Natriuretic Peptide < 5.0, White Blood Count 11.7H, Red Blood Count 4.54, Hemoglobin 14.9, Hematocrit 42.8, Mean Corpuscular Volume 94.3, Mean Corpuscular Hemoglobin 32.8, Mean Corpuscular Hemoglobin Concent 34.7, Red Cell Distribution Width 11.6, Platelet Count 250, Neutrophils (%) (Auto) 78.4H, Lymphocytes (%) (Auto) 10.6L, Monocytes (%) (Auto ) 5.8H, Eosinophils (%) (Auto) 3.1H, Basophils (%) (Auto) 0.4, Neutrophils # ( Auto) 9.2H, Lymphocytes # (Auto) 1.2L, Monocytes # (Auto) 0.7, Eosinophils # ( Auto) 0.4, Basophils # (Auto) 0.0, C-Reactive Protein, Quantitative 7.49H, Erythrocyte Sedimentation Rate 6, Glomerular Filtration Rate > 60.0, Large Unclassified Cells # 0.2, Large Unclassified Cells % 1.8 04/29/16 10:48: White Blood Count 14.2H, Red Blood Count 4.54, Hemoglobin 14.9, Hematocrit 43.5 , Mean Corpuscular Volume 95.7, Mean Corpuscular Hemoglobin 32.8, Mean Corpuscular Hemoglobin Concent 34.2, Red Cell Distribution Width 11.6, Platelet Count 253, Neutrophils (%) (Auto) 84.7H, Lymphocytes (%) (Auto) 6.0L, Monocytes (%) (Auto) 5.8H, Eosinophils (%) (Auto) 1.6, Basophils (%) (Auto) 0.3, Neutrophils # (Auto) 12.0H, Lymphocytes # (Auto) 0.9L, Monocytes # (Auto) 0.8, Eosinophils # (Auto) 0.2, Basophils # (Auto) 0.0, C-Reactive Protein, Quantitative 10.30H, Large Unclassified Cells # 0.2, Large Unclassified Cells % 1.6 CBC/BMP Laboratory Tests 04/28/16 23:37 Calcium Level 8.6, Aspartate Amino Transf (AST/SGOT) 28, Alanine Aminotransferase (ALT/SGPT) 57, Alkaline Phosphatase 92, Total Bilirubin 0.2, Total Protein 6.7, Albumin 3.7, Red Blood Count 4.54, Mean Corpuscular Volume 94.3, Mean Corpuscular Hemoglobin 32.8, Mean Corpuscular Hemoglobin Concent 34.7 , Red Cell Distribution Width 11.6, Neutrophils (%) (Auto) 78.4 H, Lymphocytes ( %) (Auto) 10.6 L, Monocytes (%) (Auto) 5.8 H, Eosinophils (%) (Auto) 3.1 H, Basophils (%) (Auto) 0.4, Neutrophils # (Auto) 9.2 H, Lymphocytes # (Auto) 1.2 L , Monocytes # (Auto) 0.7, Eosinophils # (Auto) 0.4, Basophils # (Auto) 0.0 04/29/16 10:48 Red Blood Count 4.54, Mean Corpuscular Volume 95.7, Mean Corpuscular Hemoglobin 32.8, Mean Corpuscular Hemoglobin Concent 34.2, Red Cell Distribution Width 11.6 , Neutrophils (%) (Auto) 84.7 H, Lymphocytes (%) (Auto) 6.0 L, Monocytes (%) ( Auto) 5.8 H, Eosinophils (%) (Auto) 1.6, Basophils (%) (Auto) 0.3, Neutrophils # (Auto) 12.0 H, Lymphocytes # (Auto) 0.9 L, Monocytes # (Auto) 0.8, Eosinophils # (Auto) 0.2, Basophils # (Auto) 0.0 Adelina Lopez Apr 29, 2016 11:36
[2016-04-29] MEDS: QUEtiapine FUMARATE 50 MG TAB PO PRN ×2 (12:56→20:13)
[2016-04-29 18:00] VITALS: BP 139/85
--- NOTE | 2016-04-29 19:54 | IPNPDOC ---
[facility] Progress Note Progress Note DATE OF SERVICE: 04/29/16 HISTORY: [facility] Technician met with patient today to assess treatment progress on the inpatient unit. Per EMR patient slept 3.25 hours last night, informs commercial underwriter he slept al night, like a baby." Patient presents as less disorganized than when commercial underwriter last saw 2 days ago, is grandiose at times, denies irritability, however , reportedly having verbal altercation with another patient over the weekend and is intrusive at times. Patient is observed to be walking the hallways with peers, is visible, has been attending groups. Patient initially refused to restart Depakote but has been taking for the past 2 nights, initially refuses dose increase but then agrees to allow commercial underwriter to make adjustment. Patient continues to feel he does not need psychotropic medications. Patient remains tangential but redirectable, displays no agitation or behavior management challenges, is now taking Seroquel and Atarax PRN's when needed. Patient denies medication side effects. Patient indicates he has no anxiety or depression, is experiencing no audiovisual hallucinations, no suicidal or homicidal ideation, and denies urge to engage in self-injurious behavior. Patient informs commercial underwriter he is symptom free and wants to be discharged home today. Patient denies irritability, agitation, and mood lability. Patient states appetite, concentration and focus, and energy level are stable. Patient does not appear to be responding to internal stimuli at time of interaction, however, remains religiously preoccupied. Patient initially denies symptoms of physical pain, then reports discomfort to ankles related to apparent allergic reaction patient has had 2 new slippers. She presents with no signs of acute distress at time of interaction. Addendum: Attempts made to contact patient's mother to address medication, treatment and symptom history. [facility] Technician spoke with patient's father by telephone on 04/25/16 who was unable to provide information on previous specific medication trials, verified that patient's recent med trial on Zoloft triggered symptoms of terri. Patient's father indicated patient had been doing well for years, had recently experienced social stressors including being kicked out of his girlfriend's house, termination of relationship, notes symptoms of depression began after aforementioned events, but father indicated symptoms were minimal and patient appeared to be managing prior to initiation of SSRI. VITALS: See below NEW TEST RESULTS: New lab results available, please see below, SAMIR is monitoring. Labs on admission indicates elevated MCH, low RDW, calcium. Patient reports history of asthma. also has history of right lower DVT, denies history of seizure or head injury, has scattered abrasions to hands. Valproic acid 04/19/16 low at 3.0 [place] level 04/22/16 low at 0.2 (was suspected to have stolen step-father's lithium prior to admission) UDS positive for cannabinoids 04/24/[address] ELEVATION, PROBABLY EARLY REPOLARIZATION NO PRIOR TRACING IN THE SYSTEM 05/02/16 consult completed to evaluate redness/edema the patient's ankles findings: likely allergy related to new slippers CURRENT MEDICATIONS: See below MENTAL STATUS EXAMINATION: Patient is a 30-year old male, who is calm, cooperative at times, superficially compliant, superficially bright, displays adequate hygiene, dressed in hospital clothing, makes prolonged eye contact, ambulates with steady gait, appears stated age. Speech: Is pressured, rapid at times, somewhat tangential, coherent. Language skills are intact. Thought processes: Increasingly disorganized, clear at times, intermittently tangential and goal-directed Thought content: At times logical, at times illogical, did not appear to be responding to internal stimuli at time of assessment Abstract reasoning: Limited. Description of associations: Loose, tangential, generally redirectable. Description of abnormal or psychotic thoughts: denies hallucinations, delusions , exhibits intermittent grandiosity. Patient exhibits preoccupation with taoism. Patient denies homicidal or suicidal ideation, obsessions. Patient exhibits grandiosity, possible symptoms of paranoia observed by staff. Judgment: Poor. Insight: Poor. Orientation to time, place and person. Recent and remote memory: Requires further evaluation Attention span and concentration: Limited. Language: Normal. Fund of knowledge: Requires further evaluation. Mood: "I'm doing great and I think I should go home now." Patient appears anxious, mood is expansive, lability noted. Affect: Blunted. DIAGNOSES: Bipolar disorder, mixed, polysubstance use disorder, rule out substance-induced mood disorder, rule out oppositional defiance disorder, rule out impulse control disorder, rule out MDD with psychotic features ASSESSMENT: Patient remains off of one-to-one observation, is observed walking hallways at times socializing with other patients, no agitation or aggression. Patient continues to clear from Zoloft and/or substance use, appears less disorganized today, remains superficial in his interactions, minimizes his symptoms, exhibits expansive mood and reiterates he feels he does not need to be in the hospital and does not need to take psychotropic medications. Patient states he is sleeping well (contrary to EMR), states Seroquel is helping with sleep and to stabilize mood and denies medication side effects. Patient today also reluctantly agrees to Depakote dose increase in effort to further stabilize mood. Will continue to monitor patient's use of and response to PRN medications, Seroquel, and Depakote as he continues to clear from what appears to be a substance-induced mood episode. Will monitor patient's response to medications, medication side effects, and will evaluate patient safety, resolution of suicidal and homicidal ideation, and discharge readiness. supply coordinator will continue to collect collateral information to facilitate effective treatment and discharge planning for patient. Patient states when discharged he plans to discharge to home with father and participate in outpatient medication management services. Per systems coordinator father has arranged [facility] for patient and wants patient to participate in [facility] outpatient services. MANAGEMENT PLAN: Increase Depakote ER to 1000 mg po q hs. Continue Seroquel 300 mg po q hs, Seroquel 50 mg po q 6 hours PRN for agitation, and hydroxyzine 50 mg po q 6 hours PRN anxiety/agitation. Valproate level and associated labs ordered for 05/02/16 Maintain safety precautions Patient to attend groups and participate in unit programming to develop coping strategies Engage patient in discharge planning process and arrange meeting with support system to ensure safe discharge planning when appropriate Patient to follow up with PCM upon discharge TIME SPENT: 35 minutes Vital Signs Vital Signs Date Time Temp Pulse Resp B/P Pulse Ox O2 Delivery O2 Flow Rate FiO2 04/29/16 18:00 98.6 86 18 139/85 04/28/16 22:43 96 Room Air Laboratory Data 24H Labs Laboratory Tests 2 04/28/16 23:37: Blood Urea Nitrogen 16, Creatinine 1.12, Sodium Level 141, Potassium Level 4.2, Chloride Level 104, Carbon Dioxide Level 27, Calcium Level 8.6, Aspartate Amino Transf (AST/SGOT) 28, Alanine Aminotransferase (ALT/SGPT) 57, Alkaline Phosphatase 92, Total Bilirubin 0.2, Total Protein 6.7, Albumin 3.7, Albumin/ Globulin Ratio 1.23, Anion Gap 10, B-Type Natriuretic Peptide < 5.0, White Blood Count 11.7H, Red Blood Count 4.54, Hemoglobin 14.9, Hematocrit 42.8, Mean Corpuscular Volume 94.3, Mean Corpuscular Hemoglobin 32.8, Mean Corpuscular Hemoglobin Concent 34.7, Red Cell Distribution Width 11.6, Platelet Count 250, Neutrophils (%) (Auto) 78.4H, Lymphocytes (%) (Auto) 10.6L, Monocytes (%) (Auto ) 5.8H, Eosinophils (%) (Auto) 3.1H, Basophils (%) (Auto) 0.4, Neutrophils # ( Auto) 9.2H, Lymphocytes # (Auto) 1.2L, Monocytes # (Auto) 0.7, Eosinophils # ( Auto) 0.4, Basophils # (Auto) 0.0, C-Reactive Protein, Quantitative 7.49H, Erythrocyte Sedimentation Rate 6, Glomerular Filtration Rate > 60.0, Large Unclassified Cells # 0.2, Large Unclassified Cells % 1.8 04/29/16 10:48: White Blood Count 14.2H, Red Blood Count 4.54, Hemoglobin 14.9, Hematocrit 43.5 , Mean Corpuscular Volume 95.7, Mean Corpuscular Hemoglobin 32.8, Mean Corpuscular Hemoglobin Concent 34.2, Red Cell Distribution Width 11.6, Platelet Count 253, Neutrophils (%) (Auto) 84.7H, Lymphocytes (%) (Auto) 6.0L, Monocytes (%) (Auto) 5.8H, Eosinophils (%) (Auto) 1.6, Basophils (%) (Auto) 0.3, Neutrophils # (Auto) 12.0H, Lymphocytes # (Auto) 0.9L, Monocytes # (Auto) 0.8, Eosinophils # (Auto) 0.2, Basophils # (Auto) 0.0, C-Reactive Protein, Quantitative 10.30H, Large Unclassified Cells # 0.2, Large Unclassified Cells % 1.6 CBC/BMP Laboratory Tests 04/28/16 23:37 Calcium Level 8.6, Aspartate Amino Transf (AST/SGOT) 28, Alanine Aminotransferase (ALT/SGPT) 57, Alkaline Phosphatase 92, Total Bilirubin 0.2, Total Protein 6.7, Albumin 3.7, Red Blood Count 4.54, Mean Corpuscular Volume 94.3, Mean Corpuscular Hemoglobin 32.8, Mean Corpuscular Hemoglobin Concent 34.7 , Red Cell Distribution Width 11.6, Neutrophils (%) (Auto) 78.4 H, Lymphocytes ( %) (Auto) 10.6 L, Monocytes (%) (Auto) 5.8 H, Eosinophils (%) (Auto) 3.1 H, Basophils (%) (Auto) 0.4, Neutrophils # (Auto) 9.2 H, Lymphocytes # (Auto) 1.2 L , Monocytes # (Auto) 0.7, Eosinophils # (Auto) 0.4, Basophils # (Auto) 0.0 04/29/16 10:48 Red Blood Count 4.54, Mean Corpuscular Volume 95.7, Mean Corpuscular Hemoglobin 32.8, Mean Corpuscular Hemoglobin Concent 34.2, Red Cell Distribution Width 11.6 , Neutrophils (%) (Auto) 84.7 H, Lymphocytes (%) (Auto) 6.0 L, Monocytes (%) ( Auto) 5.8 H, Eosinophils (%) (Auto) 1.6, Basophils (%) (Auto) 0.3, Neutrophils # (Auto) 12.0 H, Lymphocytes # (Auto) 0.9 L, Monocytes # (Auto) 0.8, Eosinophils # (Auto) 0.2, Basophils # (Auto) 0.0 Current Medications Current Medications Acetaminophen (Tylenol Tab) 650 mg Q6HP PRN PO HEADACHE or DISCOMFORT Last administered on 04/29/16 15:24; Start 04/19/16 at 20:45; Stop 05/19/16 at 20:44 Al Hydrox/Mg Hydrox/Simethicone (Mylanta) 30 ml Q4HP PRN PO HEARTBURN/ INDIGESTION Last administered on 04/27/16 00:55; Start 04/19/16 at 20:45; Stop 05/19/16 at 20:44 Amoxicillin/ Clavulanate Potassium (Augmentin) 250 mg TID PO Last administered on 04/29/16 15:22; Start 04/28/16 at 21:00; Stop 05/05/16 at 20:59 Benztropine Mesylate (Cogentin) 1 mg BID PO Last administered on 04/24/16 08: 24; Start 04/23/16 at 21:00; Stop 04/24/16 at 18:25; Status DC Benztropine Mesylate (Cogentin) 1 mg Q6HP PRN PO EPS Last administered on 09:29; Start 04/24/16 at 18:30; Stop 04/26/16 at 20:45; Status DC Cetirizine HCl (ZyrTEC) 10 mg DAILY PO Last administered on 04/29/16 09:00; Start 04/29/16 at 09:00; Stop 05/29/16 at 08:59 Diphenhydramine HCl (Benadryl) 50 mg Q4HP PRN PO ANXIETY/AGITATION Last administered on 04/24/16 06:25; Start 04/20/16 at 17:45; Stop 04/24/16 at 18:41 ; Status DC Divalproex Sodium (Depakote Er) 500 mg QHS PO Last administered on 04/28/16 20 :42; Start 04/26/16 at 21:00; Stop 04/29/16 at 19:18; Status DC Divalproex Sodium (Depakote Er) 1,000 mg QHS PO ; Start 04/29/16 at 21:00; Stop 05/29/16 at 20:59 Haloperidol (Haldol) 5 mg Q4HP PRN PO AGITATION Last administered on 04/24/16 06:25; Start 04/19/16 at 20:45; Stop 04/24/16 at 18:24; Status DC Haloperidol (Haldol) 5 mg Q6HP PRN PO AGITATION Last administered on 04/26/16 09:29; Start 04/24/16 at 20:45; Stop 04/26/16 at 10:16; Status DC Home Med (Med Rec Complete!) ASDIRECTED XX ; Start 04/19/16 at 20:45; Stop 11/26 at 20:47; Status DC Hydrocortisone (Hydrocortisone 1% Cream) BI-LAT FEET TIDP PRN TOP ITCHING Last administered on 04/29/16 19:04; Start 04/29/16 at 00:45; Stop 05/29/16 at 00:44 Hydroxyzine HCl (Atarax) 50 mg Q6HP PRN PO anxiety/agitation; Start 04/25/16 at 20:00; Stop 04/25/16 at 20:00; Status DC Hydroxyzine HCl (Atarax) 50 mg Q6HP PRN PO anxiety/agitation Last administered on 04/29/16 15:22; Start 04/25/16 at 21:00; Stop 05/25/16 at 20:59 Lorazepam (Ativan) 1 mg Q6HP PRN PO AGITATION Last administered on 04/25/16 14 :52; Start 04/24/16 at 18:30; Stop 04/25/16 at 16:59; Status DC Lorazepam (Ativan) 2 mg Q4HP PRN PO AGITATION Last administered on 04/24/16 06 :25; Start 04/19/16 at 20:45; Stop 04/24/16 at 18:32; Status DC Magnesium Hydroxide (Milk Of Magnesia) 30 ml DAILYPRN PRN PO CONSTIPATION; Start 04/19/16 at 20:45; Stop 05/19/16 at 20:44 Multivitamins (Theragram-M) 1 tab DAILY PO Last administered on 04/29/16 09:00 ; Start 04/20/16 at 09:00; Stop 05/20/16 at 08:59 Nicotine (Nicoderm Cq 21mg) 1 patch DAILY TD Last administered on 04/23/16 08: 00; Start 04/20/16 at 09:00; Stop 04/23/16 at 16:01; Status DC Nicotine (Nicorette) 2 mg Q2HP PRN PO NICOTINE WITHDRAWAL Last administered on 04/25/16 10:33; Start 04/23/16 at 16:00; Stop 04/25/16 at 12:15; Status DC Nicotine (Nicorette) 4 mg Q2HP PRN PO NICOTINE WITHDRAWAL Last administered on 04/29/16 17:53; Start 04/25/16 at 12:15; Stop 05/25/16 at 12:14 Prednisone (Deltasone) 10 mg BID PO ; Start 04/28/16 at 21:00; Stop 05/28/16 at 20:59; Status Cancel Quetiapine Fumarate (SEROquel) 50 mg Q6HP PRN PO AGITATION Last administered on 04/29/16 12:56; Start 04/26/16 at 10:15; Stop 05/26/16 at 10:14 Quetiapine Fumarate (SEROquel) 100 mg QHS PO Last administered on 04/23/16 21: 16; Start 04/23/16 at 21:00; Stop 04/24/16 at 18:24; Status DC Quetiapine Fumarate (SEROquel) 150 mg QHS PO Last administered on 04/24/16 20: 19; Start 04/24/16 at 21:00; Stop 04/25/16 at 17:29; Status DC Quetiapine Fumarate (SEROquel) 200 mg QHS PO Last administered on 04/25/16 20: 13; Start 04/25/16 at 21:00; Stop 04/26/16 at 10:16; Status DC Quetiapine Fumarate (SEROquel) 300 mg QHS PO Last administered on 04/28/16 20: 42; Start 04/26/16 at 21:00; Stop 05/26/16 at 20:59 Thiamine HCl (Thiamine HCl) 100 mg DAILY PO Last administered on 04/29/16 09: 00; Start 04/20/16 at 09:00; Stop 05/20/16 at 08:59 Trazodone HCl (Desyrel) 50 mg QHSP PRN PO INSOMNIA Last administered on 20:17; Start 04/19/16 at 20:45; Stop 04/23/16 at 15:54; Status DC Allergies Coded Allergies: No Known Allergies (Verified Allergy, Unknown, 11/21/09) Dodie Fontaine Apr 29, 2016 19:54
[2016-04-29] MEDS: QUEtiapine FUMARATE 100 MG TAB PO SCH (20:13)
[2016-04-29] MEDS ORDERED: DIVALPROEX 500MG *ER* TAB PO SCH (21:00)
[2016-04-30] MEDS: hydrOXYzine 50 MG TAB PO PRN ×3 (05:28→18:17)
[2016-04-30] MEDS: QUEtiapine FUMARATE 50 MG TAB PO PRN ×3 (05:28→18:17)
[2016-04-30] MEDS: NICOTINE POLACRILEX 2 MG GUM PO PRN ×5 (05:43→21:15)
[2016-04-30 06:29] VITALS: BP 156/87
[2016-04-30] MEDS: ACETAMINOPHEN TAB 650MG DOSE (2X325MG) PO PRN ×3 (06:49→21:14)
[2016-04-30 07:13] LABS: BASO % 0.4 % (0.0-1.0); EOS # 0.4 K/mm3 (0.0-0.50); EOS % 3.2 % (0.0-3.0); LARGE UNSTAINED CELL # 0.3 K/mm3 (0.0-0.4); LARGE UNSTAINED CELL % 2.7 % (0.0-4.0); LYMPH # 1.9 K/mm3 (1.5-6.5); LYMPH % 13.1 % (24.0-44.0); MEAN CORPUSCULAR HEMOGLOBIN 32.5 pg (27.0-33.0); MEAN CORPUSCULAR HGB CONC 33.7 g/dl (32.0-36.5); MEAN CORPUSCULAR VOLUME 96.4 fl (80.0-96.0); MONO # 0.8 K/mm3 (0.0-0.8); MONO % 6.4 % (0.0-5.0); NEUTROPHILS # 8.7 K/mm3 (1.8-7.7); NEUTROPHILS % 74.1 % (36.0-66.0); PLATELET COUNT, AUTOMATED 256 k/mm3 (150-450); RED CELL DISTRIBUTION WIDTH 11.6 % (11.5-14.5); WHITE BLOOD COUNT 11.8 K/mm3 (4.0-10.0)
[2016-04-30] MEDS: AUGMENTIN PO SCH (08:30)
[2016-04-30] MEDS: CETIRIZINE (ZyrTEC) 10 MG TAB PO SCH (08:30)
[2016-04-30] MEDS: MULTIVITAMINS/MINERALS THERAP 1 TAB PO SCH (08:30)
[2016-04-30] MEDS: THIAMINE 100 MG TAB PO SCH (08:30)
--- NOTE | 2016-04-30 09:58 | REP ---
Bilateral lower extremity Duplex Doppler venous ultrasound: Real time compression and duplex Doppler interrogation of the bilateral lower extremity deep venous system is performed. Bilaterally, the common femoral, superficial femoral and popliteal veins are fully compressible with transducer pressure and demonstrate normal spontaneous and phasic flow, without evidence of deep venous thrombosis. Impression: No evidence of deep venous thrombosis of the bilateral lower extremity femoral popliteal venous system. Two prominent right inguinal lymph nodes are seen measuring 3.0 x 0.9 x 1.3 cm and 3.0 x 0.8 x 1.4 cm. Signed by Keshav Brown MD 04/30/2016 09:50 A
[2016-04-30] MEDS: LORazepam 2 MG TAB PO PRN ×2 (13:17→21:13)
[2016-04-30] MEDS: DOXYCYCLINE HYCLATE 100 MG TAB PO SCH ×2 (13:23→21:13)
[2016-04-30] MEDS: LevoFLOXacin 750 MG TABLET PO SCH (13:23)
[2016-04-30] MEDS: HYDROCORTISONE 1% CREAM 30 GM TOP PRN ×2 (13:25→21:18)
--- NOTE | 2016-04-30 13:51 | IPNPDOC ---
Subjective Date Seen The patient was seen on 04/30/16. Subjective Chief Complaint/HPI The patient is a 30-year-old male admitted with a reason for visit of Bipolar D/ O; Manic Severe. Events since last encounter Re evaluating LEs Pt states still with erythema and edema. Not much different than yesterday. Has not been elevating. Pulmonary: Denies: Cough, Dyspnea Cardiovascular: Denies: Chest Pain, Lt Headedness, Orthopnea, Palpitations, Paroxysmal Noc. Dyspnea Gastrointestinal: Denies: Abdominal Pain, Constipation, Diarrhea, Nausea, Vomiting Genitourinary: Denies: Dysuria, Frequency, Incontinence, Retention Objective Physical Examination General Exam: Positive: Alert Eye Exam: Positive: PERRLA ENT Exam: Positive: Atraumatic, Mucous membr. moist/pink, Pharynx Normal Chest Exam: Positive: Clear to auscultation, Normal air movement Heart Exam: Positive: Normal S1, Normal S2, Rate Normal, Regular Rhythm, Negative: Murmurs, Rubs Extremity Exam: Positive: Other (there is no calf pain tenderness or swelling.) Skin Exam: Positive: Other skin issue (There is erythema noted of his feet bilaterally with edema noted. Mild warmth is noted of the feet bilaterally extending to the ankles bilaterally . This is not extending up to the pretibial areas. No skin lesions. No skin breakdown.) Assessment /Plan Problems (1) Allergic reaction Status: Acute Problem Text: * He appears to have started with an allergic reaction to the slippers he had been wearing. * He received Benadryl 50 mg by mouth x 1. * Hydrocortisone cream 1% 3 times a day is ordered. He is aware to reapply currently. * Zyrtec 10 mg daily. (2) Cellulitis Status: Acute Problem Text: * D/C Augmentin po * WBC trend decreased today. * CRP trend upward. * Still with edema/erythema and warmth of feet b/l * B/L LE U/S neg for DVT but Lymph nodes noted. * Elevate LEs. * Discussed with Dr Vaughan * Add po Levaquin/Doxycycline * Monitor labs and clinical progress. Plan/VTE VTE Prophylaxis Ordered?: No (ambulatory) VS, I&O, 24H, Fishbone Vital Signs/I&O Vital Signs Date Time Temp Pulse Resp B/P Pulse Ox O2 Delivery O2 Flow Rate FiO2 04/30/16 06:29 98.5 112 18 156/87 04/28/16 22:43 96 Room Air Laboratory Data 24H LABS Laboratory Tests 2 04/30/16 06:55: White Blood Count 11.8H, Red Blood Count 4.53, Hemoglobin 14.7, Hematocrit 43.6 , Mean Corpuscular Volume 96.4H, Mean Corpuscular Hemoglobin 32.5, Mean Corpuscular Hemoglobin Concent 33.7, Red Cell Distribution Width 11.6, Platelet Count 256, Neutrophils (%) (Auto) 74.1H, Lymphocytes (%) (Auto) 13.1L, Monocytes (%) (Auto) 6.4H, Eosinophils (%) (Auto) 3.2H, Basophils (%) (Auto) 0.4 , Neutrophils # (Auto) 8.7H, Lymphocytes # (Auto) 1.9, Monocytes # (Auto) 0.8, Eosinophils # (Auto) 0.4, Basophils # (Auto) 0.0, C-Reactive Protein, Quantitative 13.80H, Large Unclassified Cells # 0.3, Large Unclassified Cells % 2.7 CBC/BMP Laboratory Tests 04/30/16 06:55 Red Blood Count 4.53, Mean Corpuscular Volume 96.4 H, Mean Corpuscular Hemoglobin 32.5, Mean Corpuscular Hemoglobin Concent 33.7, Red Cell Distribution Width 11.6, Neutrophils (%) (Auto) 74.1 H, Lymphocytes (%) (Auto) 13.1 L, Monocytes (%) (Auto) 6.4 H, Eosinophils (%) (Auto) 3.2 H, Basophils (%) (Auto) 0.4, Neutrophils # (Auto) 8.7 H, Lymphocytes # (Auto) 1.9, Monocytes # ( Auto) 0.8, Eosinophils # (Auto) 0.4, Basophils # (Auto) 0.0 Adelina Lopez Apr 30, 2016 13:51
[2016-04-30 18:00] VITALS: BP 136/82
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
[2016-05-01] MEDS: hydrOXYzine 50 MG TAB PO PRN ×2 (05:57→18:30)
[2016-05-01] MEDS: LevoFLOXacin 750 MG TABLET PO SCH (05:57)
[2016-05-01 06:12] VITALS: BP 124/78
[2016-05-01 07:51] LABS: BASO % 0.7 % (0.0-1.0); EOS # 0.2 K/mm3 (0.0-0.50); EOS % 4.1 % (0.0-3.0); LARGE UNSTAINED CELL # 0.3 K/mm3 (0.0-0.4); LARGE UNSTAINED CELL % 5.4 % (0.0-4.0); LYMPH # 1.9 K/mm3 (1.5-6.5); LYMPH % 26.9 % (24.0-44.0); MEAN CORPUSCULAR HEMOGLOBIN 32.7 pg (27.0-33.0); MONO # 0.7 K/mm3 (0.0-0.8); MONO % 11.1 % (0.0-5.0); NEUTROPHILS # 3.1 K/mm3 (1.8-7.7); NEUTROPHILS % 51.8 % (36.0-66.0); PLATELET COUNT, AUTOMATED 254 k/mm3 (150-450); RED CELL DISTRIBUTION WIDTH 11.7 % (11.5-14.5)
[2016-05-01] MEDS: MULTIVITAMINS/MINERALS THERAP 1 TAB PO SCH (08:10)
[2016-05-01] MEDS: THIAMINE 100 MG TAB PO SCH (08:10)
[2016-05-01] MEDS: HYDROCORTISONE 1% CREAM 30 GM TOP PRN ×3 (08:10→22:52)
[2016-05-01] MEDS: CETIRIZINE (ZyrTEC) 10 MG TAB PO SCH (08:10)
[2016-05-01] MEDS: DOXYCYCLINE HYCLATE 100 MG TAB PO SCH ×2 (08:10→20:40)
[2016-05-01] MEDS: NICOTINE POLACRILEX 2 MG GUM PO PRN ×4 (08:12→20:42)
[2016-05-01 08:14] LABS: ANION GAP 7 MEQ/L (8-16); BLOOD UREA NITROGEN 13 MG/DL (7-18); CALCIUM LEVEL 8.5 MG/DL (8.5-10.1); CARBON DIOXIDE LEVEL 27 MEQ/L (21-32); CHLORIDE LEVEL 106 MEQ/L (98-107); CREATININE FOR GFR 1.01 MG/DL (0.70-1.30); GLOMERULAR FILTRATION RATE > 60.0 (>60); GLUCOSE, FASTING 91 MG/DL (70-105); SODIUM LEVEL 140 MEQ/L (136-145)
--- NOTE | 2016-05-01 10:21 | IPNPDOC ---
Subjective Date Seen The patient was seen on 05/01/16. Subjective Chief Complaint/HPI The patient is a 30-year-old male admitted with a reason for visit of Bipolar D/ O; Manic Severe. Events since last encounter Following up with patient regarding bilateral foot erythema. Patient states he is feeling much better today. Redness and warmth is subsiding. Pain is subsiding. He is ambulating without any difficulty. He denies any fevers or chills. Pulmonary: Denies: Cough, Dyspnea Cardiovascular: Denies: Chest Pain, Lt Headedness, Orthopnea, Palpitations, Paroxysmal Noc. Dyspnea Gastrointestinal: Denies: Abdominal Pain, Constipation, Diarrhea, Nausea, Vomiting Objective Physical Examination General Exam: Positive: Alert Eye Exam: Positive: PERRLA ENT Exam: Positive: Atraumatic, Mucous membr. moist/pink, Pharynx Normal Chest Exam: Positive: Clear to auscultation, Normal air movement Heart Exam: Positive: Normal S1, Normal S2, Rate Normal, Regular Rhythm, Negative: Murmurs, Rubs Extremity Exam: Positive: Other (there is no calf pain tenderness or swelling.) Skin Exam: Positive: Other skin issue (There is minimal erythema noted of his feet bilaterally with decreased edema noted. Decreased warmth noted of the feet bilaterally. This is mainly the dorsal aspect of the feet, no longer extending to the ankles. This does not extend up to the pretibial areas. No skin lesions. No skin breakdown.) Assessment /Plan Problems (1) Allergic reaction Status: Acute Problem Text: * He appears to have started with an allergic reaction to the slippers he had been wearing. * He received Benadryl 50 mg by mouth x 1. * Hydrocortisone cream 1% 3 times a day is ordered. He is aware to reapply. * Zyrtec 10 mg daily. (2) Cellulitis Status: Acute Problem Text: * Augmentin po d/cd * Afebrile. * WBC trend normalized. * CRP trend downward. * Improved edema/erythema and warmth of feet b/l * B/L LE U/S neg for DVT but Lymph nodes noted. * Elevate LEs. * Po Levaquin/Doxycycline D2 * Cont to monitor labs and clinical progress. Plan/VTE VTE Prophylaxis Ordered?: No (ambulatory) VS, I&O, 24H, Fishbone Vital Signs/I&O Vital Signs Date Time Temp Pulse Resp B/P Pulse Ox O2 Delivery O2 Flow Rate FiO2 05/01/16 06:12 98.2 96 20 124/78 04/28/16 22:43 96 Room Air Laboratory Data 24H LABS Laboratory Tests 2 04/30/16 13:40: Valproic Acid (Depakene) Level 39.7L 05/01/16 06:22: Anion Gap 7L, White Blood Count 6.0, Red Blood Count 4.37, Hemoglobin 14.3, Hematocrit 43.3, Mean Corpuscular Volume 99.0H, Mean Corpuscular Hemoglobin 32.7 , Mean Corpuscular Hemoglobin Concent 33.0, Red Cell Distribution Width 11.7, Platelet Count 254, Neutrophils (%) (Auto) 51.8, Lymphocytes (%) (Auto) 26.9, Monocytes (%) (Auto) 11.1H, Eosinophils (%) (Auto) 4.1H, Basophils (%) (Auto) 0.7, Neutrophils # (Auto) 3.1, Lymphocytes # (Auto) 1.9, Monocytes # (Auto) 0.7 , Eosinophils # (Auto) 0.2, Basophils # (Auto) 0.0, C-Reactive Protein, Quantitative 8.64H, Blood Urea Nitrogen 13, Creatinine 1.01, Sodium Level 140, Potassium Level 4.0, Chloride Level 106, Carbon Dioxide Level 27, Calcium Level 8.5, Glomerular Filtration Rate > 60.0, Large Unclassified Cells # 0.3, Large Unclassified Cells % 5.4H CBC/BMP Laboratory Tests 05/01/16 06:22 Calcium Level 8.5, Red Blood Count 4.37, Mean Corpuscular Volume 99.0 H, Mean Corpuscular Hemoglobin 32.7, Mean Corpuscular Hemoglobin Concent 33.0, Red Cell Distribution Width 11.7, Neutrophils (%) (Auto) 51.8, Lymphocytes (%) (Auto) 26.9, Monocytes (%) (Auto) 11.1 H, Eosinophils (%) (Auto) 4.1 H, Basophils (%) ( Auto) 0.7, Neutrophils # (Auto) 3.1, Lymphocytes # (Auto) 1.9, Monocytes # (Auto ) 0.7, Eosinophils # (Auto) 0.2, Basophils # (Auto) 0.0 Microbiology Microbiology 04/30/16 Blood Culture, Received Pending 04/30/16 Blood Culture, Received Pending Adelina Lopez May 01, 2016 10:21
[2016-05-01] MEDS: LORazepam 2 MG TAB PO PRN ×2 (14:07→22:32)
--- NOTE | 2016-05-01 15:40 | IPNPDOC ---
[facility] Progress Note Progress Note DATE OF SERVICE: 05/01/16 HISTORY: [employer] met with patient today to assess treatment progress on the inpatient unit. Patient's sleep was improved last night, again today indicates he "slept like a baby, never better." Patient presents as less disorganized today, is noticeably less irritable, exhibits reduced grandiosity, speech is less pressured, remains tangential but very redirectable. Patient indicates he feels Abilify is helping to reduce symptoms of depression and anxiety and stabilize mood, has utilized Ativan PRN and hydroxyzine PRN 1 today with good effect observed. Patient denies medication side effects. Patient is observed to be walking the hallways with one-to-one, has been generally responsive to elevating feet in effort to resolve edema and inflammation, denies physical pain at time of interaction. Patient has been attending some groups, continues to indicate he feels he does not need psychotropic medication, just needs to be discharged home where he can "talk out my depression" with family. Patient continues to minimize symptoms and remains superficially compliant, denies anxiety and depression, denies suicidal and homicidal ideation, denies audiovisual hallucinations, and denies urge to engage in self-injurious behavior. Patient denies irritability, agitation, and mood lability. Patient states appetite, concentration and focus, and energy level are stable. Patient does not appear to be responding to internal stimuli at time of interaction, no pentecostal preoccupation observed at time of interaction. Of Note: 04/11/16 ticket writer spoke with father to provide update, father indicated patient appears to be responding positively to Abilify. Patient's father indicates he and girlfriend are beginning to consider transfer to [facility]. VITALS: See below NEW TEST RESULTS: New lab results available, refer to EMR and see below. PA is monitoring. Labs on admission indicates elevated MCH, low RDW, calcium. Patient reports history of asthma. also has history of right lower DVT, denies history of seizure or head injury, has scattered abrasions to hands. Valproic acid 04/19/16 low at 3.0 Valproic acid 04/30/16 low at 39.7 [place] level 04/22/16 low at 0.2 (was suspected to have stolen step-father's lithium prior to admission) UDS positive for cannabinoids 04/24/[address] ELEVATION, PROBABLY EARLY REPOLARIZATION NO PRIOR TRACING IN THE SYSTEM 05/02/16 consult completed to evaluate redness/edema the patient's ankles findings: likely allergy related to new slippers CURRENT MEDICATIONS: See below MENTAL STATUS EXAMINATION: Patient is a 30-year old male, who is cooperative, less irritable today, remains superficially compliant, displays adequate hygiene, dressed in own clothing, makes more natural, less transfixed eye contact, ambulates with steady gait, appears stated age. Speech: Is less pressured, slower, less tangential, coherent, normal volume Language skills are intact. Thought processes: Less disorganized, clear, less tangential and more goal- directed Thought content: Logical, generally rational, does not appear to be responding to internal stimuli at time of assessment Abstract reasoning: Remain limited, but improved. Description of associations: Mild tangentiality, less loose, is more redirectable. Description of abnormal or psychotic thoughts: denies hallucinations, exhibits reduced grandiosity, reduced preoccupation with taoism. Patient denies homicidal or suicidal ideation, obsessions. Patient exhibits no symptoms of paranoia at time of interaction Judgment: Poor. Insight: Poor. Orientation to time, place and person. Recent and remote memory: Requires further evaluation Attention span and concentration: Limited. Language: Normal. Fund of knowledge: Requires further evaluation. Mood: "I'm doing fine, we better, my feet feel better and I feel better, I think I'm ready to go home today." Patient appears less anxious, less depressed , mood is e less xpansive, reduced lability noted. Affect: Constricted, some brightening DIAGNOSES: Bipolar disorder, mixed, polysubstance use disorder, rule out substance-induced mood disorder, rule out oppositional defiance disorder, rule out impulse control disorder, rule out MDD with psychotic features ASSESSMENT: Patient has been generally compliant with one-to-one observation, is observed be walking hallway at times, remains intrusive but is responsive to redirection. Patient indicates he is feeling "much better," and points to feet to show ticket writer notable reduction in swelling and redness. Patient is again strongly encouraged to keep feet elevated as comfortably possible. Patient exhibits no sign of agitation or aggression, is less irritable and mood appears more level. Patient has utilized PRN medications 1 today good effect. Patient states he feels Abilify which was started last night is helping to stabilize mood. Patient slept better last night, appears less disorganized today, remains superficial in his interactions, minimizes his symptoms, continues to exhibit expansive mood, but expresses some improvement in insight, continues to feel he does not need to be in the hospital or take psychotropic medications. Patient is in agreement with Abilify dose increase tonight in effort to further stabilize mood, denies medication side effects. Will monitor patient's response to medications, medication side effects, and will evaluate patient safety, resolution of suicidal and homicidal ideation, and discharge readiness. Patient states when discharged he plans to discharge to home with father and participate in outpatient medication management services. Per dental treatment coordinator father has arranged [facility] for patient and wants patient to participate in [facility] outpatient services. Patient informed ticket writer that when he took Risperdal after last discharge from hospital he developed gynecomastia. MANAGEMENT PLAN: Increase Abilify to 10 mg po q hs with plan to titrate as tolerated by patient. Continue Ativan 2 mg po q 6 hours PRN agitation. Continue hydroxyzine 50 mg po q 6 hours PRN anxiety/agitation. Maintain safety precautions - patient to remain on one-to-one observation Patient to attend groups and participate in unit programming to develop coping strategies Engage patient in discharge planning process and arrange meeting with support system to ensure safe discharge planning when appropriate Patient to follow up with PCM upon discharge TIME SPENT: 35 minutes Vital Signs Vital Signs Date Time Temp Pulse Resp B/P Pulse Ox O2 Delivery O2 Flow Rate FiO2 05/01/16 06:12 98.2 96 20 124/78 04/28/16 22:43 96 Room Air Laboratory Data 24H Labs Laboratory Tests 2 05/01/16 06:22: Anion Gap 7L, White Blood Count 6.0, Red Blood Count 4.37, Hemoglobin 14.3, Hematocrit 43.3, Mean Corpuscular Volume 99.0H, Mean Corpuscular Hemoglobin 32.7 , Mean Corpuscular Hemoglobin Concent 33.0, Red Cell Distribution Width 11.7, Platelet Count 254, Neutrophils (%) (Auto) 51.8, Lymphocytes (%) (Auto) 26.9, Monocytes (%) (Auto) 11.1H, Eosinophils (%) (Auto) 4.1H, Basophils (%) (Auto) 0.7, Neutrophils # (Auto) 3.1, Lymphocytes # (Auto) 1.9, Monocytes # (Auto) 0.7 , Eosinophils # (Auto) 0.2, Basophils # (Auto) 0.0, C-Reactive Protein, Quantitative 8.64H, Blood Urea Nitrogen 13, Creatinine 1.01, Sodium Level 140, Potassium Level 4.0, Chloride Level 106, Carbon Dioxide Level 27, Calcium Level 8.5, Glomerular Filtration Rate > 60.0, Large Unclassified Cells # 0.3, Large Unclassified Cells % 5.4H CBC/BMP Laboratory Tests 05/01/16 06:22 Calcium Level 8.5, Red Blood Count 4.37, Mean Corpuscular Volume 99.0 H, Mean Corpuscular Hemoglobin 32.7, Mean Corpuscular Hemoglobin Concent 33.0, Red Cell Distribution Width 11.7, Neutrophils (%) (Auto) 51.8, Lymphocytes (%) (Auto) 26.9, Monocytes (%) (Auto) 11.1 H, Eosinophils (%) (Auto) 4.1 H, Basophils (%) ( Auto) 0.7, Neutrophils # (Auto) 3.1, Lymphocytes # (Auto) 1.9, Monocytes # (Auto ) 0.7, Eosinophils # (Auto) 0.2, Basophils # (Auto) 0.0 Current Medications Current Medications Acetaminophen (Tylenol Tab) 650 mg Q6HP PRN PO HEADACHE or DISCOMFORT Last administered on 04/30/16 21:14; Start 04/19/16 at 20:45; Stop 05/19/16 at 20:44 Al Hydrox/Mg Hydrox/Simethicone (Mylanta) 30 ml Q4HP PRN PO HEARTBURN/ INDIGESTION Last administered on 04/27/16 00:55; Start 04/19/16 at 20:45; Stop 05/19/16 at 20:44 Amoxicillin/ Clavulanate Potassium (Augmentin) 250 mg TID PO Last administered on 04/30/16 08:30; Start 04/28/16 at 21:00; Stop 04/30/16 at 12:24; Status DC Aripiprazole (AbiLIFY) 5 mg QHS PO Last administered on 04/30/16 21:14; Start 04/30/16 at 21:00; Stop 05/01/16 at 15:21; Status DC Aripiprazole (AbiLIFY) 10 mg QHS PO ; Start 05/01/16 at 21:00; Stop 05/31/16 at 20:59 Benztropine Mesylate (Cogentin) 1 mg BID PO Last administered on 04/24/16 08: 24; Start 04/23/16 at 21:00; Stop 04/24/16 at 18:25; Status DC Benztropine Mesylate (Cogentin) 1 mg Q6HP PRN PO EPS Last administered on 09:29; Start 04/24/16 at 18:30; Stop 04/26/16 at 20:45; Status DC Cetirizine HCl (ZyrTEC) 10 mg DAILY PO Last administered on 05/01/16 08:10; Start 04/29/16 at 09:00; Stop 05/29/16 at 08:59 Diphenhydramine HCl (Benadryl) 50 mg Q4HP PRN PO ANXIETY/AGITATION Last administered on 04/24/16 06:25; Start 04/20/16 at 17:45; Stop 04/24/16 at 18:41 ; Status DC Divalproex Sodium (Depakote Er) 500 mg QHS PO Last administered on 04/28/16 20 :42; Start 04/26/16 at 21:00; Stop 04/29/16 at 19:18; Status DC Divalproex Sodium (Depakote Er) 1,000 mg QHS PO Last administered on 04/29/16 20:13; Start 04/29/16 at 21:00; Stop 04/30/16 at 19:01; Status DC Doxycycline Hyclate (Vibramycin) 100 mg BID PO Last administered on 05/01/16 08:10; Start 04/30/16 at 09:00; Stop 05/07/16 at 08:59 Haloperidol (Haldol) 5 mg Q4HP PRN PO AGITATION Last administered on 04/24/16 06:25; Start 04/19/16 at 20:45; Stop 04/24/16 at 18:24; Status DC Haloperidol (Haldol) 5 mg Q6HP PRN PO AGITATION Last administered on 04/26/16 09:29; Start 04/24/16 at 20:45; Stop 04/26/16 at 10:16; Status DC Home Med (Med Rec Complete!) ASDIRECTED XX ; Start 04/19/16 at 20:45; Stop 11/26 at 20:47; Status DC Hydrocortisone (Hydrocortisone 1% Cream) BI-LAT FEET TIDP PRN TOP ITCHING Last administered on 05/01/16 08:10; Start 04/29/16 at 00:45; Stop 05/29/16 at 00:44 Hydroxyzine HCl (Atarax) 50 mg Q6HP PRN PO anxiety/agitation; Start 04/25/16 at 20:00; Stop 04/25/16 at 20:00; Status DC Hydroxyzine HCl (Atarax) 50 mg Q6HP PRN PO anxiety/agitation Last administered on 05/01/16 05:57; Start 04/25/16 at 21:00; Stop 05/25/16 at 20:59 Levofloxacin (Levaquin) 750 mg DAILY@06 PO Last administered on 05/01/16 05:57 ; Start 04/30/16 at 06:00; Stop 05/07/16 at 05:59 Lorazepam (Ativan) 1 mg Q6HP PRN PO AGITATION Last administered on 04/25/16 14 :52; Start 04/24/16 at 18:30; Stop 04/25/16 at 16:59; Status DC Lorazepam (Ativan) 2 mg Q4HP PRN PO AGITATION Last administered on 04/24/16 06 :25; Start 04/19/16 at 20:45; Stop 04/24/16 at 18:32; Status DC Lorazepam (Ativan) 2 mg Q6HP PRN PO AGITATION Last administered on 05/01/16 14 :07; Start 04/30/16 at 13:15; Stop 05/07/16 at 13:14 Magnesium Hydroxide (Milk Of Magnesia) 30 ml DAILYPRN PRN PO CONSTIPATION; Start 04/19/16 at 20:45; Stop 05/19/16 at 20:44 Multivitamins (Theragram-M) 1 tab DAILY PO Last administered on 05/01/16 08:10 ; Start 04/20/16 at 09:00; Stop 05/20/16 at 08:59 Nicotine (Nicoderm Cq 21mg) 1 patch DAILY TD Last administered on 04/23/16 08: 00; Start 04/20/16 at 09:00; Stop 04/23/16 at 16:01; Status DC Nicotine (Nicorette) 2 mg Q2HP PRN PO NICOTINE WITHDRAWAL Last administered on 04/25/16 10:33; Start 04/23/16 at 16:00; Stop 04/25/16 at 12:15; Status DC Nicotine (Nicorette) 4 mg Q2HP PRN PO NICOTINE WITHDRAWAL Last administered on 05/01/16 14:09; Start 04/25/16 at 12:15; Stop 05/25/16 at 12:14 Prednisone (Deltasone) 10 mg BID PO ; Start 04/28/16 at 21:00; Stop 05/28/16 at 20:59; Status Cancel Quetiapine Fumarate (SEROquel) 50 mg Q6HP PRN PO AGITATION Last administered on 04/30/16 18:17; Start 04/26/16 at 10:15; Stop 04/30/16 at 19:01; Status DC Quetiapine Fumarate (SEROquel) 100 mg QHS PO Last administered on 04/23/16 21: 16; Start 04/23/16 at 21:00; Stop 04/24/16 at 18:24; Status DC Quetiapine Fumarate (SEROquel) 150 mg QHS PO Last administered on 04/24/16 20: 19; Start 04/24/16 at 21:00; Stop 04/25/16 at 17:29; Status DC Quetiapine Fumarate (SEROquel) 200 mg QHS PO Last administered on 04/25/16 20: 13; Start 04/25/16 at 21:00; Stop 04/26/16 at 10:16; Status DC Quetiapine Fumarate (SEROquel) 300 mg QHS PO Last administered on 04/29/16 20: 13; Start 04/26/16 at 21:00; Stop 04/30/16 at 19:01; Status DC Thiamine HCl (Thiamine HCl) 100 mg DAILY PO Last administered on 05/01/16 08: 10; Start 04/20/16 at 09:00; Stop 05/20/16 at 08:59 Trazodone HCl (Desyrel) 50 mg QHSP PRN PO INSOMNIA Last administered on 20:17; Start 04/19/16 at 20:45; Stop 04/23/16 at 15:54; Status DC Allergies Coded Allergies: No Known Allergies (Verified Allergy, Unknown, 11/21/09) Dodie Fontaine May 01, 2016 15:40 Thiamine HCl (Thiamine HCl) 100 mg DAILY PO Last administered on 05/01/16 08: 10; Start 04/20/16 at 09:00; Stop 05/20/16 at 08:59 Trazodone HCl (Desyrel) 50 mg QHSP PRN PO INSOMNIA Last administered on 20:17; Start 04/19/16 at 20:45; Stop 04/23/16 at 15:54; Status DC Allergies Coded Allergies: No Known Allergies (Verified Allergy, Unknown, 11/21/09) Dodie Fontaine May 01, 2016 15:40
[2016-05-01 18:25] VITALS: BP 134/72
[2016-05-01] MEDS: ARIPiprazole 10 MG TAB PO SCH (20:40)
[2016-05-02] MEDS: ACETAMINOPHEN TAB 650MG DOSE (2X325MG) PO PRN ×3 (01:28→23:03)
[2016-05-02] MEDS: LevoFLOXacin 750 MG TABLET PO SCH (05:24)
[2016-05-02] MEDS: NICOTINE POLACRILEX 2 MG GUM PO PRN ×4 (05:25→20:59)
[2016-05-02 06:30] VITALS: BP_SYST 109; BP_SYST 131; BP_DIAS 77
[2016-05-02 08:21] LABS: MEAN CORPUSCULAR HEMOGLOBIN 32.8 pg (27.0-33.0); MEAN CORPUSCULAR HGB CONC 34.3 g/dl (32.0-36.5); MEAN CORPUSCULAR VOLUME 95.4 fl (80.0-96.0); RED CELL DISTRIBUTION WIDTH 11.6 % (11.5-14.5)
[2016-05-02] MEDS: HYDROCORTISONE 1% CREAM 30 GM TOP PRN ×2 (08:40→19:42)
[2016-05-02] MEDS: MULTIVITAMINS/MINERALS THERAP 1 TAB PO SCH (08:40)
[2016-05-02] MEDS: THIAMINE 100 MG TAB PO SCH (08:40)
[2016-05-02] MEDS: CETIRIZINE (ZyrTEC) 10 MG TAB PO SCH (08:40)
[2016-05-02] MEDS: DOXYCYCLINE HYCLATE 100 MG TAB PO SCH ×2 (08:41→20:24)
[2016-05-02 08:54] LABS: ALBUMIN 3.7 GM/DL (3.2-5.2); ALBUMIN/GLOBULIN RATIO 1.06 (1.00-1.93); ALKALINE PHOSPHATASE 88 U/L (45-117); ALT/SGPT 55 U/L (12-78); ANION GAP 8 MEQ/L (8-16); AST/SGOT 28 U/L (15-37); BILIRUBIN,TOTAL 0.2 MG/DL (0.2-1.0); BLOOD UREA NITROGEN 11 MG/DL (7-18); CALCIUM LEVEL 8.9 MG/DL (8.5-10.1); CARBON DIOXIDE LEVEL 25 MEQ/L (21-32); CHLORIDE LEVEL 105 MEQ/L (98-107); CREATININE FOR GFR 0.81 MG/DL (0.70-1.30); GLOMERULAR FILTRATION RATE > 60.0 (>60); GLUCOSE, FASTING 109 MG/DL (70-105); SODIUM LEVEL 138 MEQ/L (136-145); TOTAL PROTEIN 7.2 GM/DL (6.4-8.2)
[2016-05-02] MEDS: hydrOXYzine 50 MG TAB PO PRN ×2 (12:56→20:59)
--- NOTE | 2016-05-02 15:54 | IPNPDOC ---
[facility] Progress Note Progress Note DATE OF SERVICE: 05/02/16 HISTORY: Re Dye Hand met with patient today to assess treatment progress on the inpatient unit. Patient's sleep was improved last night and he is calmer and more engageable. Patient presents as less disorganized today, exhibits no indication of irritability, displays noticeably reduced symptoms of grandiosity , speech is less pressured, remains tangential but very redirectable. Patient indicates he feels Abilify continues to help reduce symptoms of depression and anxiety and stabilize mood, has not needed to utilize Ativan PRN today, utilized hydroxyzine hydroxyzine PRN 1 today with good effect observed. Patient denies medication side effects. One-to-one was discontinued and patient is able to manage behavioral control. Patient denies physical pain at time of interaction, is still elevating feet with direction periodically, reports improvement to inflammation and denies physical pain. Patient has been attending some groups. Patient today expresses insight informs conventional underwriter he is aware he needs medication in order to "bring me down," verbalizes awareness of the importance of medication compliance. Patient continues to minimize symptoms , is somewhat superficially compliant, but appears to have an awareness of the need for hospitalization and medication at this time. Patient enies anxiety and depression, denies suicidal and homicidal ideation, denies audiovisual hallucinations, and denies urge to engage in self-injurious behavior. Patient denies irritability, agitation, and mood lability. Patient states appetite, concentration and focus, and energy level are stable. Patient does not appear to be responding to internal stimuli at time of interaction, no sabianism preoccupation observed at time of interaction. Of Note: 04/11/16 conventional underwriter spoke with father to provide update, father indicated patient appears to be responding positively to Abilify. Patient's father indicates he and girlfriend are beginning to consider transfer to [facility] [place] VITALS: See below NEW TEST RESULTS: New lab results available, refer to EMR and see below. PA is monitoring. Labs on admission indicates elevated MCH, low RDW, calcium. Patient reports history of asthma. also has history of right lower DVT, denies history of seizure or head injury, has scattered abrasions to hands. Valproic acid 04/19/16 low at 3.0 Valproic acid 04/30/16 low at 39.7 Novice level 04/22/16 low at 0.2 (was suspected to have stolen step-father's lithium prior to admission) UDS positive for cannabinoids 04/24/[address] ELEVATION, PROBABLY EARLY REPOLARIZATION NO PRIOR TRACING IN THE SYSTEM 05/02/16 consult completed to evaluate redness/edema the patient's ankles findings: likely allergy related to new slippers CURRENT MEDICATIONS: See below MENTAL STATUS EXAMINATION: Patient is a 30-year old male, who is cooperative, less irritable today, remains somewhat superficially compliant, displays adequate hygiene, dressed in own clothing, makes natural, less transfixed eye contact, ambulates with steady gait, appears stated age. Speech: Is less pressured, slower, less tangential, coherent, normal volume Language skills are intact. Thought processes: Less disorganized, clearer, less tangential and more goal- directed Thought content: Logical, generally rational, does not appear to be responding to internal stimuli at time of assessment Abstract reasoning: Remain limited, but improved. Description of associations: Mild tangentiality, tighter, is more redirectable. Description of abnormal or psychotic thoughts: denies hallucinations, exhibits reduced grandiosity, reduced preoccupation with rastafari. Patient denies homicidal or suicidal ideation, obsessions. Patient exhibits no symptoms of paranoia at time of interaction Judgment: Poor, some improvement. Insight: Poor, some improvement. Orientation to time, place and person. Recent and remote memory: Requires further evaluation Attention span and concentration: Limited. Language: Normal. Fund of knowledge: Requires further evaluation. Mood: "I'm doing better, this medication is better, my mind is working better." Patient appears less anxious, less depressed, mood is e less xpansive, reduced lability noted. Affect: Constricted, some brightening DIAGNOSES: Bipolar disorder, mixed, polysubstance use disorder, rule out substance-induced mood disorder, rule out oppositional defiance disorder, rule out impulse control disorder, rule out MDD with psychotic features ASSESSMENT: Patient has been in behavioral control since discontinuation of one- to-one observation, is observed be walking hallway at times, requires redirection at times but is responsive. Patient indicates he is feeling "much better," denies medication side effects, feels Abilify is helping to stabilize mood. Patient is again strongly encouraged to keep feet elevated as comfortably possible. Patient exhibits no sign of agitation or aggression, is less irritable and mood appears more level. Patient appears less disorganized today, remains superficial in his interactions, minimizes his symptoms, now exhibits only mildly expansive mood, but expresses some improvement in insight. Patient is in agreement with continuation of Abilify, will evaluate need for dosing adjustment tomorrow. Will continue to monitor patient's response to medications , medication side effects, and will evaluate patient safety, resolution of suicidal and homicidal ideation, and discharge readiness. Patient states when discharged he plans to discharge to home with father and participate in outpatient medication management services. Per lean manufacturing coordinator father has arranged [facility] for patient and wants patient to participate in [facility] outpatient services. Patient informed conventional underwriter that when he took Risperdal after last discharge from hospital he developed gynecomastia. MANAGEMENT PLAN: Continue Abilify to 10 mg po q hs with plan to titrate as tolerated by patient. Continue Ativan 2 mg po q 6 hours PRN agitation. Continue hydroxyzine 50 mg po q 6 hours PRN anxiety/agitation. Maintain safety precautions - patient to remain on one-to-one observation Patient to attend groups and participate in unit programming to develop coping strategies Engage patient in discharge planning process and arrange meeting with support system to ensure safe discharge planning when appropriate Patient to follow up with PCM upon discharge TIME SPENT: 35 minutes Vital Signs Vital Signs Date Time Temp Pulse Resp B/P Pulse Ox O2 Delivery O2 Flow Rate FiO2 05/02/16 06:30 98.7 92 16 131/77 04/28/16 22:43 96 Room Air Laboratory Data 24H Labs Laboratory Tests 2 05/02/16 07:56: Blood Urea Nitrogen 11, Creatinine 0.81, Sodium Level 138, Potassium Level 4.0, Chloride Level 105, Carbon Dioxide Level 25, Calcium Level 8.9, Aspartate Amino Transf (AST/SGOT) 28, Alanine Aminotransferase (ALT/SGPT) 55, Alkaline Phosphatase 88, Total Bilirubin 0.2, Total Protein 7.2, Albumin 3.7, Albumin/ Globulin Ratio 1.06, Anion Gap 8, C-Reactive Protein, Quantitative 3.78H, Glomerular Filtration Rate > 60.0, Valproic Acid (Depakene) Level 8.3L CBC/BMP Laboratory Tests 05/02/16 07:56 Calcium Level 8.9, Aspartate Amino Transf (AST/SGOT) 28, Alanine Aminotransferase (ALT/SGPT) 55, Alkaline Phosphatase 88, Total Bilirubin 0.2, Total Protein 7.2, Albumin 3.7, Red Blood Count 4.86, Mean Corpuscular Volume 95.4, Mean Corpuscular Hemoglobin 32.8, Mean Corpuscular Hemoglobin Concent 34.3 , Red Cell Distribution Width 11.6 Current Medications Current Medications Acetaminophen (Tylenol Tab) 650 mg Q6HP PRN PO HEADACHE or DISCOMFORT Last administered on 05/02/16 12:57; Start 04/19/16 at 20:45; Stop 05/19/16 at 20:44 Al Hydrox/Mg Hydrox/Simethicone (Mylanta) 30 ml Q4HP PRN PO HEARTBURN/ INDIGESTION Last administered on 04/27/16 00:55; Start 04/19/16 at 20:45; Stop 05/19/16 at 20:44 Amoxicillin/ Clavulanate Potassium (Augmentin) 250 mg TID PO Last administered on 04/30/16 08:30; Start 04/28/16 at 21:00; Stop 04/30/16 at 12:24; Status DC Aripiprazole (AbiLIFY) 5 mg QHS PO Last administered on 04/30/16 21:14; Start 04/30/16 at 21:00; Stop 05/01/16 at 15:21; Status DC Aripiprazole (AbiLIFY) 10 mg QHS PO Last administered on 05/01/16 20:40; Start 05/01/16 at 21:00; Stop 05/31/16 at 20:59 Benztropine Mesylate (Cogentin) 1 mg BID PO Last administered on 04/24/16 08: 24; Start 04/23/16 at 21:00; Stop 04/24/16 at 18:25; Status DC Benztropine Mesylate (Cogentin) 1 mg Q6HP PRN PO EPS Last administered on 09:29; Start 04/24/16 at 18:30; Stop 04/26/16 at 20:45; Status DC Cetirizine HCl (ZyrTEC) 10 mg DAILY PO Last administered on 05/02/16 08:40; Start 04/29/16 at 09:00; Stop 05/29/16 at 08:59 Diphenhydramine HCl (Benadryl) 50 mg Q4HP PRN PO ANXIETY/AGITATION Last administered on 04/24/16 06:25; Start 04/20/16 at 17:45; Stop 04/24/16 at 18:41 ; Status DC Divalproex Sodium (Depakote Er) 500 mg QHS PO Last administered on 04/28/16 20 :42; Start 04/26/16 at 21:00; Stop 04/29/16 at 19:18; Status DC Divalproex Sodium (Depakote Er) 1,000 mg QHS PO Last administered on 04/29/16 20:13; Start 04/29/16 at 21:00; Stop 04/30/16 at 19:01; Status DC Doxycycline Hyclate (Vibramycin) 100 mg BID PO Last administered on 05/02/16 08:41; Start 04/30/16 at 09:00; Stop 05/07/16 at 08:59 Haloperidol (Haldol) 5 mg Q4HP PRN PO AGITATION Last administered on 04/24/16 06:25; Start 04/19/16 at 20:45; Stop 04/24/16 at 18:24; Status DC Haloperidol (Haldol) 5 mg Q6HP PRN PO AGITATION Last administered on 04/26/16 09:29; Start 04/24/16 at 20:45; Stop 04/26/16 at 10:16; Status DC Home Med (Med Rec Complete!) ASDIRECTED XX ; Start 04/19/16 at 20:45; Stop 11/26 at 20:47; Status DC Hydrocortisone (Hydrocortisone 1% Cream) BI-LAT FEET TIDP PRN TOP ITCHING Last administered on 05/02/16 08:40; Start 04/29/16 at 00:45; Stop 05/29/16 at 00:44 Hydroxyzine HCl (Atarax) 50 mg Q6HP PRN PO anxiety/agitation; Start 04/25/16 at 20:00; Stop 04/25/16 at 20:00; Status DC Hydroxyzine HCl (Atarax) 50 mg Q6HP PRN PO anxiety/agitation Last administered on 05/02/16 12:56; Start 04/25/16 at 21:00; Stop 05/25/16 at 20:59 Levofloxacin (Levaquin) 750 mg DAILY@06 PO Last administered on 05/02/16 05:24 ; Start 04/30/16 at 06:00; Stop 05/07/16 at 05:59 Lorazepam (Ativan) 1 mg Q6HP PRN PO AGITATION Last administered on 04/25/16 14 :52; Start 04/24/16 at 18:30; Stop 04/25/16 at 16:59; Status DC Lorazepam (Ativan) 2 mg Q4HP PRN PO AGITATION Last administered on 04/24/16 06 :25; Start 04/19/16 at 20:45; Stop 04/24/16 at 18:32; Status DC Lorazepam (Ativan) 2 mg Q6HP PRN PO AGITATION Last administered on 05/01/16 22 :32; Start 04/30/16 at 13:15; Stop 05/07/16 at 13:14 Magnesium Hydroxide (Milk Of Magnesia) 30 ml DAILYPRN PRN PO CONSTIPATION; Start 04/19/16 at 20:45; Stop 05/19/16 at 20:44 Multivitamins (Theragram-M) 1 tab DAILY PO Last administered on 05/02/16 08:40 ; Start 04/20/16 at 09:00; Stop 05/20/16 at 08:59 Nicotine (Nicoderm Cq 21mg) 1 patch DAILY TD Last administered on 04/23/16 08: 00; Start 04/20/16 at 09:00; Stop 04/23/16 at 16:01; Status DC Nicotine (Nicorette) 2 mg Q2HP PRN PO NICOTINE WITHDRAWAL Last administered on 04/25/16 10:33; Start 04/23/16 at 16:00; Stop 04/25/16 at 12:15; Status DC Nicotine (Nicorette) 4 mg Q2HP PRN PO NICOTINE WITHDRAWAL Last administered on 05/02/16 14:59; Start 04/25/16 at 12:15; Stop 05/25/16 at 12:14 Prednisone (Deltasone) 10 mg BID PO ; Start 04/28/16 at 21:00; Stop 05/28/16 at 20:59; Status Cancel Quetiapine Fumarate (SEROquel) 50 mg Q6HP PRN PO AGITATION Last administered on 04/30/16 18:17; Start 04/26/16 at 10:15; Stop 04/30/16 at 19:01; Status DC Quetiapine Fumarate (SEROquel) 100 mg QHS PO Last administered on 04/23/16 21: 16; Start 04/23/16 at 21:00; Stop 04/24/16 at 18:24; Status DC Quetiapine Fumarate (SEROquel) 150 mg QHS PO Last administered on 04/24/16 20: 19; Start 04/24/16 at 21:00; Stop 04/25/16 at 17:29; Status DC Quetiapine Fumarate (SEROquel) 200 mg QHS PO Last administered on 04/25/16 20: 13; Start 04/25/16 at 21:00; Stop 04/26/16 at 10:16; Status DC Quetiapine Fumarate (SEROquel) 300 mg QHS PO Last administered on 04/29/16 20: 13; Start 04/26/16 at 21:00; Stop 04/30/16 at 19:01; Status DC Thiamine HCl (Thiamine HCl) 100 mg DAILY PO Last administered on 05/02/16 08: 40; Start 04/20/16 at 09:00; Stop 05/20/16 at 08:59 Trazodone HCl (Desyrel) 50 mg QHSP PRN PO INSOMNIA Last administered on 20:17; Start 04/19/16 at 20:45; Stop 04/23/16 at 15:54; Status DC Allergies Coded Allergies: No Known Allergies (Verified Allergy, Unknown, 11/21/09) Dodie Fontaine May 02, 2016 15:54
[2016-05-02 18:00] VITALS: BP 144/88
[2016-05-02] MEDS: ARIPiprazole 10 MG TAB PO SCH (20:24)
[2016-05-02] MEDS: LORazepam 2 MG TAB PO PRN (22:06)
[2016-05-03] MEDS: NICOTINE POLACRILEX 2 MG GUM PO PRN ×5 (02:21→17:49)
[2016-05-03 06:15] VITALS: BP 150/88
[2016-05-03] MEDS: LevoFLOXacin 750 MG TABLET PO SCH (06:24)
[2016-05-03] MEDS: LORazepam 2 MG TAB PO PRN ×3 (07:44→20:36)
[2016-05-03] MEDS: CETIRIZINE (ZyrTEC) 10 MG TAB PO SCH (07:48)
[2016-05-03] MEDS: DOXYCYCLINE HYCLATE 100 MG TAB PO SCH ×2 (07:48→20:04)
[2016-05-03] MEDS: THIAMINE 100 MG TAB PO SCH (07:48)
[2016-05-03] MEDS: MULTIVITAMINS/MINERALS THERAP 1 TAB PO SCH (07:48)
[2016-05-03] MEDS: HYDROCORTISONE 1% CREAM 30 GM TOP PRN (07:52)
[2016-05-03] MEDS: hydrOXYzine 50 MG TAB PO PRN ×2 (09:42→17:50)
--- NOTE | 2016-05-03 16:25 | IPNPDOC ---
[facility] Progress Note Progress Note DATE OF SERVICE: 05/03/16 HISTORY: Pond Sawyer met with patient today to assess treatment progress on the inpatient unit. Patient's sleep was interrupted last night due to medical emergency code called on unit, otherwise denies challenges, however, EMR indicates patient continues to struggle with sleep. Patient informs keno writer / runner he has utilized trazodone for sleep in past with good effect, makes request for trazodone trial in effort to address the challenges. Patient remains calm her and more engageable, is less disorganized with no indication of irritability. Only minimal symptoms of grandiosity are noted, speech is less pressured and patient is less tangential, remains redirectable. Patient states today he feels Abilify remains helpful in stabilizing mood and reducing symptoms of depression and anxiety. Patient has utilized PRN Ativan 2 today and hydroxyzine 1 with good effect reported. Patient denies medication side effects. Patient has been visible on unit and attending groups and has been able to maintain behavioral control, is not inciting tension between other patients. Patient reports improvement to inflammation to feet and denies physical pain. Patient continues to exhibit improved insight in terms of illness, need for treatment, and importance of medication compliance, informs keno writer / runner today that he is in no way interested in receiving injectable medication. Patient is less superficially compliant, continues to state she feels prepared for discharge. Patient denies symptoms of anxiety and depression, denies suicidal and homicidal ideation, denies audiovisual hallucinations, and denies urge to engage in self-injurious behavior. Patient denies irritability, agitation, and mood lability. Patient states appetite, concentration and focus, and energy levels are stable. Patient does not appear to be responding to internal stimuli at time of interaction, no zoroastrianism preoccupation observed at time of interaction. Of Note: 04/11/16 keno writer / runner spoke with father to provide update, father indicated patient appears to be responding positively to Abilify. Patient's father indicates he and girlfriend are beginning to consider transfer to [facility]. VITALS: See below NEW TEST RESULTS: New lab results available, refer to EMR and see below. PA is monitoring. Labs on admission indicates elevated MCH, low RDW, calcium. Patient reports history of asthma. also has history of right lower DVT, denies history of seizure or head injury, has scattered abrasions to hands. Valproic acid 04/19/16 low at 3.0 Valproic acid 04/30/16 low at 39.7 [place] level 04/22/16 low at 0.2 (was suspected to have stolen step-father's lithium prior to admission) UDS positive for cannabinoids 04/24/[address] ELEVATION, PROBABLY EARLY REPOLARIZATION NO PRIOR TRACING IN THE SYSTEM 05/02/16 consult completed to evaluate redness/edema the patient's ankles findings: likely allergy related to new slippers CURRENT MEDICATIONS: See below MENTAL STATUS EXAMINATION: Patient is a 30-year old male, who is cooperative, no irritability noted today, less superficially compliant, displays adequate hygiene, dressed in own clothing , makes natural, less transfixed eye contact, ambulates with steady gait, appears stated age. Speech: Is less pressured, slower, less tangential, coherent, normal volume Language skills are intact. Thought processes: Less disorganized, clearer, less tangential and more goal- directed Thought content: Logical, generally rational, does not appear to be responding to internal stimuli at time of assessment Abstract reasoning: Remain limited, but improved. Description of associations: Mild tangentiality, tighter, is more redirectable. Description of abnormal or psychotic thoughts: denies hallucinations, exhibits reduced grandiosity, reduced preoccupation with baptism. Patient denies homicidal or suicidal ideation, obsessions. Patient exhibits no symptoms of paranoia at time of interaction Judgment: Poor, some improvement. Insight: Impaired, some improvement. Orientation to time, place and person. Recent and remote memory: Requires further evaluation Attention span and concentration: Limited. Language: Normal. Fund of knowledge: Requires further evaluation. Mood: "I'm doing better, I'm clearer, my thinking is better, I'm more level." Patient appears less anxious, less depressed, mood is e less xpansive, reduced lability noted. Affect: Constricted, some brightening DIAGNOSES: Bipolar disorder, mixed, polysubstance use disorder, rule out substance-induced mood disorder, rule out oppositional defiance disorder, rule out impulse control disorder, rule out MDD with psychotic features ASSESSMENT: Patient has been able to maintain behavioral control since discontinuation of one-to-one observation, is observed be walking hallway at times, requires redirection at times but is responsive. Patient indicates he continues to feel "a lot better, more like my old self." denies medication side effects, feels Abilify is helping to stabilize mood. Patient exhibits no sign of irritability, agitation, or aggression, is less irritable and mood appears more level. Patient appears less disorganized today, remains superficial in his interactions, minimizes his symptoms, now exhibits only mildly expansive mood, but expresses some improvement in insight. Patient is in agreement with continuation of Abilify, will evaluate need for dosing adjustment tomorrow. Patient indicates he has taken trazodone in the past with good effect is requesting a trial for sleep purposes. Will add trazodone PRN and will continue to monitor patient's response to medications, medication side effects, and will evaluate patient safety, resolution of suicidal and homicidal ideation, and discharge readiness. Patient states when discharged he plans to discharge to home with father and participate in outpatient medication management services. Per cancer program coordinator father has arranged [facility] for patient and wants patient to participate in [facility] outpatient services. Patient informed keno writer / runner that when he took Risperdal after last discharge from hospital he developed gynecomastia. MANAGEMENT PLAN: Initiate med trial trazodone 50 mg po hs, evaluate dose increase if needed and if medication as tolerated by patient. Continue Abilify to 10 mg po q hs with plan to titrate as tolerated by patient. Continue Ativan 2 mg po q 6 hours PRN agitation. Continue hydroxyzine 50 mg po q 6 hours PRN anxiety/agitation. Maintain safety precautions - patient to remain on one-to-one observation Patient to attend groups and participate in unit programming to develop coping strategies Engage patient in discharge planning process and arrange meeting with support system to ensure safe discharge planning when appropriate Patient to follow up with PCM upon discharge TIME SPENT: 35 minutes Vital Signs Vital Signs Date Time Temp Pulse Resp B/P Pulse Ox O2 Delivery O2 Flow Rate FiO2 05/03/16 06:15 97.7 87 18 150/88 04/28/16 22:43 96 Room Air Current Medications Current Medications Acetaminophen (Tylenol Tab) 650 mg Q6HP PRN PO HEADACHE or DISCOMFORT Last administered on 05/02/16 23:03; Start 04/19/16 at 20:45; Stop 05/19/16 at 20:44 Al Hydrox/Mg Hydrox/Simethicone (Mylanta) 30 ml Q4HP PRN PO HEARTBURN/ INDIGESTION Last administered on 04/27/16 00:55; Start 04/19/16 at 20:45; Stop 05/19/16 at 20:44 Amoxicillin/ Clavulanate Potassium (Augmentin) 250 mg TID PO Last administered on 04/30/16 08:30; Start 04/28/16 at 21:00; Stop 04/30/16 at 12:24; Status DC Aripiprazole (AbiLIFY) 5 mg QHS PO Last administered on 04/30/16 21:14; Start 04/30/16 at 21:00; Stop 05/01/16 at 15:21; Status DC Aripiprazole (AbiLIFY) 10 mg QHS PO Last administered on 05/02/16 20:24; Start 05/01/16 at 21:00; Stop 05/31/16 at 20:59 Benztropine Mesylate (Cogentin) 1 mg BID PO Last administered on 04/24/16 08: 24; Start 04/23/16 at 21:00; Stop 04/24/16 at 18:25; Status DC Benztropine Mesylate (Cogentin) 1 mg Q6HP PRN PO EPS Last administered on 09:29; Start 04/24/16 at 18:30; Stop 04/26/16 at 20:45; Status DC Cetirizine HCl (ZyrTEC) 10 mg DAILY PO Last administered on 05/03/16 07:48; Start 04/29/16 at 09:00; Stop 05/29/16 at 08:59 Diphenhydramine HCl (Benadryl) 50 mg Q4HP PRN PO ANXIETY/AGITATION Last administered on 04/24/16 06:25; Start 04/20/16 at 17:45; Stop 04/24/16 at 18:41 ; Status DC Divalproex Sodium (Depakote Er) 500 mg QHS PO Last administered on 04/28/16 20 :42; Start 04/26/16 at 21:00; Stop 04/29/16 at 19:18; Status DC Divalproex Sodium (Depakote Er) 1,000 mg QHS PO Last administered on 04/29/16 20:13; Start 04/29/16 at 21:00; Stop 04/30/16 at 19:01; Status DC Doxycycline Hyclate (Vibramycin) 100 mg BID PO Last administered on 05/03/16 07:48; Start 04/30/16 at 09:00; Stop 05/07/16 at 08:59 Haloperidol (Haldol) 5 mg Q4HP PRN PO AGITATION Last administered on 04/24/16 06:25; Start 04/19/16 at 20:45; Stop 04/24/16 at 18:24; Status DC Haloperidol (Haldol) 5 mg Q6HP PRN PO AGITATION Last administered on 04/26/16 09:29; Start 04/24/16 at 20:45; Stop 04/26/16 at 10:16; Status DC Home Med (Med Rec Complete!) ASDIRECTED XX ; Start 04/19/16 at 20:45; Stop 11/26 at 20:47; Status DC Hydrocortisone (Hydrocortisone 1% Cream) BI-LAT FEET TIDP PRN TOP ITCHING Last administered on 05/03/16 07:52; Start 04/29/16 at 00:45; Stop 05/29/16 at 00:44 Hydroxyzine HCl (Atarax) 50 mg Q6HP PRN PO anxiety/agitation; Start 04/25/16 at 20:00; Stop 04/25/16 at 20:00; Status DC Hydroxyzine HCl (Atarax) 50 mg Q6HP PRN PO anxiety/agitation Last administered on 05/03/16 09:42; Start 04/25/16 at 21:00; Stop 05/25/16 at 20:59 Levofloxacin (Levaquin) 750 mg DAILY@06 PO Last administered on 05/03/16 06:24 ; Start 04/30/16 at 06:00; Stop 05/07/16 at 05:59 Lorazepam (Ativan) 1 mg Q6HP PRN PO AGITATION Last administered on 04/25/16 14 :52; Start 04/24/16 at 18:30; Stop 04/25/16 at 16:59; Status DC Lorazepam (Ativan) 2 mg Q4HP PRN PO AGITATION Last administered on 04/24/16 06 :25; Start 04/19/16 at 20:45; Stop 04/24/16 at 18:32; Status DC Lorazepam (Ativan) 2 mg Q6HP PRN PO AGITATION Last administered on 05/03/16 14 :29; Start 04/30/16 at 13:15; Stop 05/07/16 at 13:14 Magnesium Hydroxide (Milk Of Magnesia) 30 ml DAILYPRN PRN PO CONSTIPATION; Start 04/19/16 at 20:45; Stop 05/19/16 at 20:44 Multivitamins (Theragram-M) 1 tab DAILY PO Last administered on 05/03/16 07:48 ; Start 04/20/16 at 09:00; Stop 05/20/16 at 08:59 Nicotine (Nicoderm Cq 21mg) 1 patch DAILY TD Last administered on 04/23/16 08: 00; Start 04/20/16 at 09:00; Stop 04/23/16 at 16:01; Status DC Nicotine (Nicorette) 2 mg Q2HP PRN PO NICOTINE WITHDRAWAL Last administered on 04/25/16 10:33; Start 04/23/16 at 16:00; Stop 04/25/16 at 12:15; Status DC Nicotine (Nicorette) 4 mg Q2HP PRN PO NICOTINE WITHDRAWAL Last administered on 05/03/16 14:30; Start 04/25/16 at 12:15; Stop 05/25/16 at 12:14 Prednisone (Deltasone) 10 mg BID PO ; Start 04/28/16 at 21:00; Stop 05/28/16 at 20:59; Status Cancel Quetiapine Fumarate (SEROquel) 50 mg Q6HP PRN PO AGITATION Last administered on 04/30/16 18:17; Start 04/26/16 at 10:15; Stop 04/30/16 at 19:01; Status DC Quetiapine Fumarate (SEROquel) 100 mg QHS PO Last administered on 04/23/16 21: 16; Start 04/23/16 at 21:00; Stop 04/24/16 at 18:24; Status DC Quetiapine Fumarate (SEROquel) 150 mg QHS PO Last administered on 04/24/16 20: 19; Start 04/24/16 at 21:00; Stop 04/25/16 at 17:29; Status DC Quetiapine Fumarate (SEROquel) 200 mg QHS PO Last administered on 04/25/16 20: 13; Start 04/25/16 at 21:00; Stop 04/26/16 at 10:16; Status DC Quetiapine Fumarate (SEROquel) 300 mg QHS PO Last administered on 04/29/16 20: 13; Start 04/26/16 at 21:00; Stop 04/30/16 at 19:01; Status DC Thiamine HCl (Thiamine HCl) 100 mg DAILY PO Last administered on 05/03/16 07: 48; Start 04/20/16 at 09:00; Stop 05/20/16 at 08:59 Trazodone HCl (Desyrel) 50 mg QHSP PRN PO INSOMNIA Last administered on 20:17; Start 04/19/16 at 20:45; Stop 04/23/16 at 15:54; Status DC Allergies Coded Allergies: No Known Allergies (Verified Allergy, Unknown, 11/21/09) Dodie Fontaine May 03, 2016 16:25
[2016-05-03 18:00] VITALS: BP 138/86
[2016-05-03] MEDS: traZODone 50 MG TAB PO SCH (20:04)
[2016-05-03] MEDS: ARIPiprazole 10 MG TAB PO SCH (20:04)
[2016-05-04] MEDS: hydrOXYzine 50 MG TAB PO PRN ×3 (00:06→20:01)
[2016-05-04] MEDS: HYDROCORTISONE 1% CREAM 30 GM TOP PRN ×2 (00:08→22:30)
[2016-05-04] MEDS: LevoFLOXacin 750 MG TABLET PO SCH (05:06)
[2016-05-04] MEDS: LORazepam 2 MG TAB PO PRN ×3 (05:06→21:29)
[2016-05-04 06:22] VITALS: BP 126/85
[2016-05-04] MEDS ORDERED: NICOTINE 21MG/24HR 1 EA TRANSDERMAL TD ONE (07:00)
[2016-05-04] MEDS: DOXYCYCLINE HYCLATE 100 MG TAB PO SCH ×2 (08:20→20:01)
[2016-05-04] MEDS: CETIRIZINE (ZyrTEC) 10 MG TAB PO SCH (08:20)
[2016-05-04] MEDS: THIAMINE 100 MG TAB PO SCH (08:20)
[2016-05-04] MEDS: MULTIVITAMINS/MINERALS THERAP 1 TAB PO SCH (08:20)
[2016-05-04] MEDS: ACETAMINOPHEN TAB 650MG DOSE (2X325MG) PO PRN ×2 (13:55→21:30)
[2016-05-04 18:00] VITALS: BP 124/62
[2016-05-04] MEDS: traZODone 50 MG TAB PO SCH (20:01)
[2016-05-04] MEDS: ARIPiprazole 10 MG TAB PO SCH (20:02)
[2016-05-05] MEDS: ACETAMINOPHEN TAB 650MG DOSE (2X325MG) PO PRN ×2 (04:05→15:54)
[2016-05-05] MEDS: hydrOXYzine 50 MG TAB PO PRN (04:05)
[2016-05-05] MEDS: LevoFLOXacin 750 MG TABLET PO SCH (05:56)
[2016-05-05 06:20] VITALS: BP_SYST 135; BP_SYST 142; BP_DIAS 78; BP_DIAS 84
[2016-05-05] MEDS: THIAMINE 100 MG TAB PO SCH (08:36)
[2016-05-05] MEDS: MULTIVITAMINS/MINERALS THERAP 1 TAB PO SCH (08:36)
[2016-05-05] MEDS: NICOTINE 21MG/24HR 1 EA TRANSDERMAL TD SCH (08:36)
[2016-05-05] MEDS: DOXYCYCLINE HYCLATE 100 MG TAB PO SCH ×2 (08:36→20:39)
[2016-05-05] MEDS: CETIRIZINE (ZyrTEC) 10 MG TAB PO SCH (08:36)
[2016-05-05 18:00] VITALS: BP 142/82
[2016-05-05] MEDS: ARIPiprazole 10 MG TAB PO SCH (20:39)
[2016-05-05] MEDS: traZODone 50 MG TAB PO SCH (20:39)
[2016-05-05] MEDS: IBUPROFEN 600 MG TAB PO PRN (20:39)
[2016-05-06] MEDS: LORazepam 2 MG TAB PO PRN ×2 (00:55→12:43)
[2016-05-06] MEDS: ACETAMINOPHEN TAB 650MG DOSE (2X325MG) PO PRN ×2 (00:57→10:33)
[2016-05-06] MEDS: HYDROCORTISONE 1% CREAM 30 GM TOP PRN ×2 (02:09→21:59)
[2016-05-06] MEDS: LevoFLOXacin 750 MG TABLET PO SCH (05:48)
[2016-05-06] MEDS: IBUPROFEN 600 MG TAB PO PRN ×2 (05:50→18:14)
[2016-05-06 06:08] VITALS: BP 129/80
[2016-05-06] MEDS: NICOTINE 21MG/24HR 1 EA TRANSDERMAL TD SCH (08:14)
[2016-05-06] MEDS: THIAMINE 100 MG TAB PO SCH (08:14)
[2016-05-06] MEDS: MULTIVITAMINS/MINERALS THERAP 1 TAB PO SCH (08:14)
[2016-05-06] MEDS: CETIRIZINE (ZyrTEC) 10 MG TAB PO SCH (08:14)
[2016-05-06] MEDS: DOXYCYCLINE HYCLATE 100 MG TAB PO SCH ×2 (08:14→21:25)
[2016-05-06] MEDS: hydrOXYzine 50 MG TAB PO PRN (11:53)
--- NOTE | 2016-05-06 17:18 | IPN ---
DATE: 05/06/2016 SUBJECTIVE: The patient is a 30-year-old man who was admitted with a diagnosis of mood-related disorder, currently on his 17th day of inpatient admission. He is seen today and his treatment reviewed. He currently continues to receive aripiprazole 10 mg orally at bedtime for management of mood-related symptoms. In addition, he takes doxycycline 100 mg twice daily, and levofloxacin 75 mg daily for treatment of infection, cetirizine 10 mg daily for allergies. He reports today that he has been taking his medications regularly and feeling increasingly better. However, he indicates that if given a choice he would rather not take any medication, although clarifying that he will continue to take the medication as long as his treating physician deems necessary. He reports that he slept well overnight, and no new problems reported. OBSERVATION: He is alert, cooperative, adequately groomed, and appropriately dressed. No abnormal involuntary movements. His speech is fluent and thought process is coherent and goal-directed. No evidence of delusions or hallucinations. He describes his mood as being good and affect is appropriate. He denies suicidal or homicidal thoughts, plan, or intent. ASSESSMENT: The patient currently has been responding relatively well to treatment and does not appear to be at imminent risk of danger to self or others. PLAN: He will be continued on the current treatment and will be assessed ongoing. To be discharged once he maintains treatment stability. [facility]
[2016-05-06 18:00] VITALS: BP 132/76
[2016-05-06] MEDS ORDERED: traZODone 100 MG TAB PO SCH (21:00)
[2016-05-06] MEDS: ARIPiprazole 10 MG TAB PO SCH (21:25)
[2016-05-07] MEDS: ACETAMINOPHEN TAB 650MG DOSE (2X325MG) PO PRN ×2 (01:30→09:19)
[2016-05-07] MEDS: IBUPROFEN 600 MG TAB PO PRN ×2 (05:50→11:35)
[2016-05-07 06:37] VITALS: BP 143/75
[2016-05-07] MEDS: THIAMINE 100 MG TAB PO SCH (08:21)
[2016-05-07] MEDS: CETIRIZINE (ZyrTEC) 10 MG TAB PO SCH (08:21)
[2016-05-07] MEDS: NICOTINE 21MG/24HR 1 EA TRANSDERMAL TD SCH (08:21)
[2016-05-07] MEDS: MULTIVITAMINS/MINERALS THERAP 1 TAB PO SCH (08:21)
[2016-05-07] MEDS ORDERED: NICO21PAT TD (11:24)
[2016-05-07] MEDS ORDERED: HYDRO50TAB PO (14:17)
[2016-05-07] MEDS ORDERED: ARIP10TAB PO (14:17)
[2016-05-07] MEDS ORDERED: TRAZ10TA PO (14:17)
--- NOTE | 2016-05-07 14:19 | DS.PDOC ---
[facility] Discharge Summary Discharge Summary DATE OF ADMISSION: Apr 19, 2016 at 20:31 DATE OF DISCHARGE: May 07, 2016 HISTORY: Patient is a 30-year-old male who is unable to answer video games storywriter's questions directly pertaining to events which led to his current hospitalization. Patient does confirm that he has had 1 prior hospitalization in 2009 for presentation of similar symptoms. Per ER record, [facility] called police for what they believe to be substance-induced psychosis and patient was brought in to [facility] ER. Patient was uncooperative in the emergency room, exhibiting restless, agitated behavior and engaged in yelling and spitting, displayed depressed, elevated, and euphoric moods, paranoia. Patient is calm and makes effort to be cooperative at time of assessment, denies experiencing current anxiety or depression, denies suicidal and homicidal ideation, denies audiovisual hallucinations, and denies urge to engage in self-injurious behavior. Patient denies history of suicide attempt or self-injurious behavior. Per ER record patient has experienced the following symptoms/problems within the past 2 weeks: Anger, decreased appetite, depressed mood, drug abuse, hallucinations, helpless/hopelessness, distracted behavior and hyperactivity, medication noncompliance, poor concentration, psychosis, reduced sleep, and suicidal ideation. Per ER record, patient may have also stolen his mother's boyfriends lithium medication. Patient had apparently attempted to seek treatment at [facility], for some reason ended up at primary care who prescribed patient Zoloft. Per ER report, patient's mother had indicated to ER staff the patient had become increasingly bizarre for the past 2 weeks talking to himself and God, isolating to home, labile mood, drug use, believes that demons were going to "get everyone," and at one point broke a clock in effort to "set time back." ER report also indicates that patient has been noncompliant with treatment and medications since his discharge from inpatient treatment in 2009 at which time he was discharged with a diagnosis of bipolar disorder. Patient endorses history of discomfort in social settings, denies panic, impulse control , compulsive behavior, irritability and agitation, denies history of being aggressive toward others and indicates he does not have access to weapons. Patient states he has been struggling with sleep challenges, both latency and maintenance. Patient denies symptoms of reexperiencing, avoidance, and hypervigilance, denies dissociative symptoms and describes his mood is level denying symptoms of hypomania and terri. Patient describes his appetite as "good ," and denies challenges with concentration and focus. Patient informed video games storywriter during assessment that his primary care had been prescribing him Zoloft 100 mg po q day. Patient states medication was "very effective," notes current symptoms began when patient abruptly discontinued medication approximately 2 weeks ago. Patient states he had been taking Zoloft for about one month. Patient denies all symptoms of mood lability in connection with medication, informs video games storywriter "I only started to have a problem with my mood when I got here and they wouldn't let me go." After completing assessment video games storywriter consulted with safety aids, behavioral health worker, and patient's nurse who agreed with video games storywriter's assessment that patient appeared safer discontinuing one-to-one observation. However, later in shift, video games storywriter was informed by process safety engineer that patient had been making threats against staff. Patient was placed back on one-to-one observation, will reevaluate need to continue in morning. PAST PSYCHIATRIC HISTORY: Prior Psychiatric Disorder: Bipolar disorder, mixed, polysubstance use disorder , impulse control disorder, MDD, oppositional defiant disorder, personality disorder, treatment noncompliance Outpatient Treatment: [facility] 7 years ago, until recently was seeing his PCM who was prescribing patient Zoloft Suicidal/Self injurious: Patient denies history of suicide attempts, per EMR records, has a history of threatening family members when agitated, at one point plan to kill his stepfather and then hang himself Psychotropic Medication History: Patient was discharged from inpatient treatment in 2009 on a medication regimen including Depakote 500 mg po BID, Risperdal 2 mg po hs, and trazodone 100 mgpo hs. Patient indicates he "hated" the medications. Was recently prescribed Zoloft by PCM. MEDICAL/SURGICAL HISTORY: Labs on admission indicates elevated MCH, low RDW, calcium. Patient reports history of asthma. also has history of right lower DVT, denies history of seizure or head injury, has scattered abrasions to hands. Valproic acid 04/19/16 low at 3.0 Valproic acid 04/30/16 low at 39.7 [place] level 04/22/16 low at 0.2 (was suspected to have stolen step-father's lithium prior to admission) UDS positive for cannabinoids 04/24/[address] ELEVATION, PROBABLY EARLY REPOLARIZATION NO PRIOR TRACING IN THE SYSTEM 05/02/16 consult completed to evaluate redness/edema the patient's ankles findings: likely allergy related to new slippers FAMILY PSYCHIATRIC HISTORY: Patient declines to provide specific answers, indicates he has had multiple family members who have experienced mental illness and whom have made suicide attempts and committed suicide. SOCIAL HISTORY: Patient indicates he was born and raised in the [facility], has lived in several locations which she declines to elaborate on, states he currently lives with his mother. Patient denies history of abuse, trauma, or witnessing domestic violence in the home while growing up. Patient states he is never had a girlfriend with 3 children, is evasive regarding when relationship ended, indicates he has no children of his own. Patient states he completed the 11th grade in high school and completed the GED. 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 Patient states he has friends in the area and supportive family, indicates he feels he has an adequate support system. SUBSTANCE ABUSE HISTORY: Patient states he smokes approximately half a pack of cigarettes per day, smokes marijuana 2-3 times per week, denies all other current substance use or abuse. Patient notes she quit heroin approximately 8 months ago, states he snorted, denies IV use, describes drug use background including smoking crack cocaine, snorting heroin and taking pills. Per EMR, however, patient also has history of using alcohol, PCP, methamphetamine. LEGAL HISTORY: Patient denies TREATMENT PROGRESS ON UNIT: MENTAL STATUS EXAMINATION ON DISCHARGE: Patient is a 30-year old male, who is pleasant and cooperative, no irritability present, is genuine in his interactions, displays adequate personal hygiene, is dressed in own clothing, exhibits no involuntary movement, ambulates with steady gait, appears stated age. Speech: Of normal rate, rhythm, volume, coherent, spontaneous Language skills are intact. Thought processes: Clear, goal-directed, no tangentiality Thought content: Logical, rational, does not appear to be responding to internal stimuli Abstract reasoning: Fair, has improved during treatment Description of associations: Intact, little tangentiality Description of abnormal or psychotic thoughts: denies hallucinations, no grandiosity, no preoccupation with scientology. Patient denies homicidal or suicidal ideation, obsessions. Patient exhibits no symptoms of paranoia Judgment: Fair, some improvement during treatment Insight: Fair, has improved during treatment Orientation to time, place and person. Recent and remote memory: Appears intact, adequate Attention span and concentration: Limited. Language: Normal. Fund of knowledge: Adequate Mood: "I'm good, I feel better, the medication is working, and I'm ready to go home." No depression, anxiety, or mood lability noted Affect: Mild constriction, brightens frequently and appropriately, congruent with mood CONDITION ON DISCHARGE: Stable, no suicidal or homicidal ideation DIAGNOSES: Bipolar disorder, mixed, polysubstance use disorder, rule out substance-induced mood disorder, rule out oppositional defiance disorder, rule out impulse control disorder, rule out MDD with psychotic features MEDICATIONS ON DISCHARGE: See below FOLLOW UP PLAN: Continue Abilify 10 mg po q hs, trazodone 100 mg po hs insomnia , and hydroxyzine 50 mg po q 6 hours PRN anxiety/agitation. Patient to discharge to home and to be transported by father where he will reside with his father and stepmother Patient to participate in outpatient behavioral health services for psychotherapy and medication management through [facility] Patient to follow up with PCM upon discharge TIME SPENT COORDINATING CARE: 45 minutes Vital Signs Vital Sign - Last 24 Hours 05/06/16 05/07/16 18:00 06:37 Temp 98.7 98.1 Pulse 105 92 Resp 16 16 B/P 132/76 143/75 Laboratory Data Microbiology Microbiology 04/30/16 Blood Culture - Final, Complete NO GROWTH AFTER 5 DAYS 04/30/16 Blood Culture - Final, Complete NO GROWTH AFTER 5 DAYS Medications Scheduled Aripiprazole (Aripiprazole) 10 Mg Tab #7 10 MG PO QHS MOOD Nicotine (Nicotine Transdermal Syst) 21 Mg/24 Hr Dis #14 1 PATCH TD DAILY SMOKING CESSATION Trazodone HCl (Trazodone HCl) 100 Mg Tab #7 100 MG PO QHS INSOMNIA Scheduled PRN Hydroxyzine HCl (Hydroxyzine HCl) 50 Mg Tab #10 50 MG PO Q6HP PRN PRN anxiety/ agitation Allergies Coded Allergies: No Known Allergies (Verified Allergy, Unknown, 11/21/09) Dodie Fontaine May 07, 2016 14:19
== END 2016-05-07 16:00 | disposition home or self-care (01) | DRG 753 ==
LOC: M ED 17:58 → M ED INP 20:31 → M PSY 21:20
PROVIDERS: ADMIT Internal Medicine Addiction Medicine; ATTEND Internal Medicine Addiction Medicine
DX: F31.60 Bipolar disorder, current episode mixed, unspecified (principal); F91.3 Oppositional defiant disorder; F63.9 Impulse disorder, unspecified; F17.210 Nicotine dependence, cigarettes, uncomplicated; F12.90 Cannabis use, unspecified, uncomplicated; Z79.899 Other long term (current) drug therapy; L03.113 Cellulitis of right upper limb; L03.114 Cellulitis of left upper limb

== ENCOUNTER 2016-05-12 11:11 | Inpatient (IN) | payer OTHER ==
[~2016-05-12] VITALS: Ht 180.3 cm; Wt 79.4 kg
[~2016-05-12 11:11] MED LIST changes: +ARIP10TAB PO; +HYDRO50TAB PO; +NICO21PAT TD; +SERT-138 PO; +TRAZ10TA PO
[2016-05-12] MEDS ORDERED: LORazepam 2 MG TAB PO STA (12:11)
[2016-05-12 14:58] VITALS: BP 146/74
[2016-05-12] MEDS: NICOTINE 21MG/24HR 1 EA TRANSDERMAL TD SCH (17:59)
[2016-05-12] MEDS: ARIPiprazole 10 MG TAB PO SCH (21:27)
[2016-05-12] MEDS: traZODone 100 MG TAB PO SCH (21:27)
[2016-05-12] MEDS: hydrOXYzine 50 MG TAB PO PRN (21:27)
[2016-05-12] MEDS: ACETAMINOPHEN TAB 650MG DOSE (2X325MG) PO PRN (21:28)
--- NOTE | 2016-05-12 23:44 | HPE ---
DATE OF ADMISSION: 05/12/2016 Please refer to psychiatric history and evaluation for further details on this admission. This examination and history is intended for medical issues, which may need treatment, followup or consult on this 30-year-old male who was recently discharged from [facility] on 05/07/2016. Primary care provider, Dr. Rodriguez in [place]. ALLERGIES: No known allergies. SOCIAL HISTORY: He smokes one pack of cigarettes a day, rarely drinks alcohol. Recreational drug use, marijuana. PAST MEDICAL HISTORY: Bipolar disorder. PAST SURGICAL HISTORY None. FAMILY HISTORY: Noncontributory. The patient was transferred from [facility]. HOME MEDICATIONS: The patient was not taking his medications. He was severely anxious and angry. He was taken to [facility]. They had no beds and he was transferred here. His home medications upon discharge were to Abilify 10 mg by mouth at bedtime (q.h.s.), hydroxyzine 50 mg by mouth every 6 hours as needed for agitation, trazodone 100 mg by mouth at bedtime (q.h.s.), nicotine patch 21 mg for 24 hours, one patch daily. REVIEW OF SYSTEMS: His only complaint was of some numbness of the 2nd and 3rd toe on his left foot, range of motion, states he has had it for a while. PHYSICAL EXAMINATION: 30-year-old male in no acute distress. Height 71 inches, 71.8 kg. Body mass index (BMI) 22.1. Pupils equal and reactive. Extraocular muscles intact. Sclerae clear. Conjunctivae normal. No facial asymmetry. Pharynx: Tongue and gums were pink and moist. Tongue is midline. Neck is supple without lymphadenopathy, no thyromegaly, no goiter. Chest clear to auscultation without wheeze or retractions. Heart is regular. Abdomen benign. Bowel sounds positive. Genitourinary/rectal not done. Extremities show full range of motion. No cyanosis, clubbing or edema. Deep tendon reflexes (DTRs) 2+ in wrists bilaterally. Feet warm to touch bilaterally. Back: Full range of motion. Skin warm and dry. IMPRESSION AND PLANS: Psychiatric plans with psychiatry. History of tingling and numbness in 2nd and 3rd toe, left foot. Followup with primary care provider as outpatient.
[2016-05-13] MEDS: ACETAMINOPHEN TAB 650MG DOSE (2X325MG) PO PRN ×3 (04:09→18:15)
[2016-05-13 06:52] VITALS: BP 119/78
[2016-05-13 08:07] VITALS: BP 122/72
[2016-05-13] MEDS: NICOTINE 21MG/24HR 1 EA TRANSDERMAL TD SCH (08:16)
[2016-05-13] MEDS: MAALOX 30 ML SUSP *UDC PO PRN (08:16)
[2016-05-13 10:15] LABS: MEAN CORPUSCULAR HEMOGLOBIN 32.7 pg (27.0-33.0); MEAN CORPUSCULAR HGB CONC 33.4 g/dl (32.0-36.5); MEAN CORPUSCULAR VOLUME 97.8 fl (80.0-96.0); PLATELET COUNT, AUTOMATED 324 k/mm3 (150-450); RED CELL DISTRIBUTION WIDTH 12.3 % (11.5-14.5); WHITE BLOOD COUNT 16.1 K/mm3 (4.0-10.0)
[2016-05-13 10:35] LABS: ALBUMIN 3.9 GM/DL (3.2-5.2); ALBUMIN/GLOBULIN RATIO 1.34 (1.00-1.93); ALKALINE PHOSPHATASE 70 U/L (45-117); ALT/SGPT 63 U/L (12-78); ANION GAP 8 MEQ/L (8-16); AST/SGOT 44 U/L (15-37); BILIRUBIN,TOTAL 0.7 MG/DL (0.2-1.0); BLOOD UREA NITROGEN 21 MG/DL (7-18); CALCIUM LEVEL 8.5 MG/DL (8.5-10.1); CARBON DIOXIDE LEVEL 26 MEQ/L (21-32); CHLORIDE LEVEL 105 MEQ/L (98-107); CREATININE FOR GFR 0.95 MG/DL (0.70-1.30); GLOMERULAR FILTRATION RATE > 60.0 (>60); GLUCOSE, FASTING 115 MG/DL (70-105); POTASSIUM SERUM 4.3 MEQ/L (3.5-5.1); SODIUM LEVEL 139 MEQ/L (136-145); TOTAL PROTEIN 6.8 GM/DL (6.4-8.2)
[2016-05-13 11:12] LABS: BANDS 5 % (< 11); EOSINOPHILS 2 % (0-5)
[2016-05-13 11:16] LABS: ANISOCYTOSIS 1+
--- NOTE | 2016-05-13 11:22 | IPNPDOC ---
Subjective Date Seen The patient was seen on 05/13/16. Subjective Chief Complaint/HPI The patient is a 30-year-old male admitted with a reason for visit of Bipolar Disorder. Events since last encounter I was requested to evaluate this patient as he was reported to be ill in his room this morning. When I found him for examination he was ambulating in the hallway with an acquaintance. He was conversing and drinking davida nyla. He reported he did have nausea and vomiting this morning however it had subsided. He also reported diarrhea which had occurred this morning however he reported no further episodes at this time. At this time he reports no abdominal discomfort. He states he is drinking fluids. He has no specific complaints at this time. No lightheadedness, dizziness, shortness of breath, chest discomfort, nausea, diaphoresis, weakness. Constitutional: Denies: Chills, Fever ENT: Denies: Dysphagia, Ear Pain, Head Aches Skin: Denies: Breakdown, Lesions, Rash Pulmonary: Denies: Cough, Dyspnea Cardiovascular: Denies: Chest Pain, Lt Headedness, Palpitations, Paroxysmal Noc. Dyspnea Objective Physical Examination General Exam: Positive: Alert Eye Exam: Positive: PERRLA ENT Exam: Positive: Atraumatic, Mucous membr. moist/pink, Pharynx Normal Chest Exam: Positive: Clear to auscultation, Normal air movement Heart Exam: Positive: Normal S1, Normal S2, Rate Normal, Regular Rhythm, Negative: Murmurs, Rubs Abdomen Exam: Positive: Normal bowel sounds, Other (there is no epigastric tenderness.), Soft, Negative: Hepatospenomegaly, Hernia, Mass, Tenderness Skin Exam: Positive: Nl turgor and temperature Neuro Exam: Positive: Normal Gait Assessment /Plan Problems (1) Gastroenteritis Status: Acute Problem Text: * Nausea, vomiting, and diarrhea this morning. * Possibly viral illness. * Continue to encourage fluids and bland diet. * CBC, CMP, GI panel requested. * Monitor. (2) Paresthesia of left foot Status: Chronic Problem Text: * Plan is for further workup as outpatient. * TSH WNL 04/19/16 * Add Vitamin B12/folate as well. Plan/VTE VTE Prophylaxis Ordered?: No (ambulatory) VS, I&O, 24H, Fishbone Vital Signs/I&O Vital Signs Date Time Temp Pulse Resp B/P Pulse Ox O2 Delivery O2 Flow Rate FiO2 4/3/17 08:07 98.0 98 20 122/72 98 Room Air Laboratory Data 24H LABS Laboratory Tests 2 05/13/16 09:47: Blood Urea Nitrogen 21H, Creatinine 0.95, Sodium Level 139, Potassium Level 4.3 , Chloride Level 105, Carbon Dioxide Level 26, Calcium Level 8.5, Aspartate Amino Transf (AST/SGOT) 44H, Alanine Aminotransferase (ALT/SGPT) 63, Alkaline Phosphatase 70, Total Bilirubin 0.7, Total Protein 6.8, Albumin 3.9, Albumin/ Globulin Ratio 1.34, Anion Gap 8, White Blood Count 16.1H, Red Blood Count 5.14 , Hemoglobin 16.8, Hematocrit 50.3, Mean Corpuscular Volume 97.8H, Mean Corpuscular Hemoglobin 32.7, Mean Corpuscular Hemoglobin Concent 33.4, Red Cell Distribution Width 12.3, Platelet Count 324, Neutrophils (%) (Auto) , Lymphocytes (%) (Auto) , Monocytes (%) (Auto) , Eosinophils (%) (Auto) , Basophils (%) (Auto) , Neutrophils # (Auto) , Lymphocytes # (Auto) , Monocytes # (Auto) , Eosinophils # (Auto) , Basophils # (Auto) , Glomerular Filtration Rate > 60.0, Large Unclassified Cells # , Large Unclassified Cells % CBC/BMP Laboratory Tests 05/13/16 09:47 Calcium Level 8.5, Aspartate Amino Transf (AST/SGOT) 44 H, Alanine Aminotransferase (ALT/SGPT) 63, Alkaline Phosphatase 70, Total Bilirubin 0.7, Total Protein 6.8, Albumin 3.9, Red Blood Count 5.14, Mean Corpuscular Volume 97.8 H, Mean Corpuscular Hemoglobin 32.7, Mean Corpuscular Hemoglobin Concent 33.4, Red Cell Distribution Width 12.3, Neutrophils (%) (Auto) , Lymphocytes (% ) (Auto) , Monocytes (%) (Auto) , Eosinophils (%) (Auto) , Basophils (%) (Auto) , Neutrophils # (Auto) , Lymphocytes # (Auto) , Monocytes # (Auto) , Eosinophils # (Auto) , Basophils # (Auto) Adelina Lopez May 13, 2016 11:22
[2016-05-13 12:12] LABS: FOLATE 10.1 NG/ML (>5.4)
[2016-05-13] MEDS: hydrOXYzine 50 MG TAB PO PRN ×2 (13:57→20:41)
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
[2016-05-13 18:00] VITALS: BP 126/76
[2016-05-13] MEDS: ARIPiprazole 10 MG TAB PO SCH (20:41)
[2016-05-13] MEDS: traZODone 100 MG TAB PO SCH (20:41)
[2016-05-14] MEDS: ACETAMINOPHEN TAB 650MG DOSE (2X325MG) PO PRN ×3 (02:23→16:42)
[2016-05-14 06:07] VITALS: BP 119/74
[2016-05-14 07:09] LABS: BASO % 0.6 % (0.0-1.0); EOS # 0.3 K/mm3 (0.0-0.50); LARGE UNSTAINED CELL # 0.1 K/mm3 (0.0-0.4); LARGE UNSTAINED CELL % 2.1 % (0.0-4.0); LYMPH # 0.9 K/mm3 (1.5-6.5); LYMPH % 14.5 % (24.0-44.0); MEAN CORPUSCULAR HEMOGLOBIN 32.8 pg (27.0-33.0); MEAN CORPUSCULAR HGB CONC 33.4 g/dl (32.0-36.5); MONO # 0.6 K/mm3 (0.0-0.8); MONO % 10.2 % (0.0-5.0); NEUTROPHILS # 3.8 K/mm3 (1.8-7.7); NEUTROPHILS % 67.5 % (36.0-66.0); PLATELET COUNT, AUTOMATED 285 k/mm3 (150-450); RED CELL DISTRIBUTION WIDTH 12.4 % (11.5-14.5); WHITE BLOOD COUNT 5.6 K/mm3 (4.0-10.0)
[2016-05-14 07:36] LABS: ALBUMIN 3.3 GM/DL (3.2-5.2); ALBUMIN/GLOBULIN RATIO 1.22 (1.00-1.93); ALKALINE PHOSPHATASE 84 U/L (45-117); ALT/SGPT 57 U/L (12-78); ANION GAP 5 MEQ/L (8-16); AST/SGOT 36 U/L (15-37); BILIRUBIN,TOTAL 0.3 MG/DL (0.2-1.0); BLOOD UREA NITROGEN 14 MG/DL (7-18); CALCIUM LEVEL 7.6 MG/DL (8.5-10.1); CARBON DIOXIDE LEVEL 28 MEQ/L (21-32); CHLORIDE LEVEL 106 MEQ/L (98-107); CREATININE FOR GFR 1.06 MG/DL (0.70-1.30); GLOMERULAR FILTRATION RATE > 60.0 (>60); GLUCOSE, FASTING 106 MG/DL (70-105); POTASSIUM SERUM 3.8 MEQ/L (3.5-5.1); SODIUM LEVEL 139 MEQ/L (136-145)
[2016-05-14] MEDS: NICOTINE 21MG/24HR 1 EA TRANSDERMAL TD SCH (08:02)
[2016-05-14] MEDS: hydrOXYzine 50 MG TAB PO PRN (15:53)
[2016-05-14 18:00] VITALS: BP 126/58
--- NOTE | 2016-05-14 18:06 | IPNPDOC ---
[facility] Progress Note Progress Note DATE OF SERVICE: 05/14/16 HISTORY: The patient 30-year-old man presented to [facility] shortly after being discharged from [facility] for what appeared to be an episode of bipolar terri. The patient was brought in due to concerns that he was becoming increasingly distorted and due to difficulties with compliance with his Abilify due to insurance preauthorization's he appeared to decompensate per his dad's report. The patient additionally appeared to have had a for a friend who committed suicide which may have further caused him to experience increased mood dysregulation. Reportedly the patient have been giving away his things and acting in an unusual manner. Fruit Farmer met with patient today to evaluate treatment progress on inpatient unit. Patient was engageable, was distractible, displayed pressured speech and some impulsivity, denied visual hallucinations, endorsed hearing voices in the past and exhibited delusional beliefs involving religiosity and grandiosity. Patient denied suicidal and homicidal ideation and with regard to recent report of patient giving away personal belongings stated, "I just like to help people, I' m good at helping people and my father misinterpreted." Patient denies challenges with sleep and EMR indicates some improvement. Patient indicates appetite is stable, adds he was sick yesterday with "stomach bug," denies vomiting, nausea, diarrhea today. Patient presents with no signs of acute distress at time of interaction. UDS was negative on admission, however, ER reports patient's father stated patient when out with friends one night and came home smelling of alcohol and marijuana. Call placed to father who indicated patient did not miss Abilify doses after discharge, did see primary care provider who increased his trazodone for sleep, indicates patient was sleeping approximately an hour at home and would spend a time at night while awake pacing and listening to music. Patient's father stated patient and others girlfriend did not have altercation per say, but the patient was "scary and in her space." Patient's father stated it is "up in the air" as to whether patient may return to the home noting "I push to get him out too fast last time he needs to stay in the hospital and be stabilized before will know if he can come home." In addition, patient's father indicates patient expressed suicidal ideation to a friend and while in the emergency room, notes patient recently had friend hanging himself and was last week. VITAL SIGNS: See below. NEW TEST RESULTS: No new results. Labs on admission indicated anomalies, on recheck elevated were neut %, mono %, Eos %, MCV and glucose, low were Lymph %, anion gap, calcium, and total protein, PA monitoring. 04/24/[address] ELEVATION, PROBABLY EARLY REPOLARIZATION NO PRIOR TRACING IN THE SYSTEM UDS negative on admission CURRENT MEDICATIONS: See below. MENTAL STATUS EXAMINATION: General: Cooperative with intense eye contact/prolonged gaze, adequate personal hygiene, dressed in personal clothing, ambulates with steady gait, appears stated age Speech: Pressured, rapid, coherent, some delay Thought processes: Circumstantial and at times tangential Thought content: Perseveration on admission, discharge reported disagreement with father's girlfriend Abstract reasoning, and computation: [place] thinking Description of associations: Loose Description of abnormal or psychotic thoughts: The patient denies any current suicidal or homicidal ideation. He does allude to experiencing various odd and delusional beliefs about people around him, need to help others, spirituality. He does not appear to be responding to internal stimuli Judgment: Poor Insight: Poor Orientation: Alert and oriented 3 Recent and remote memory: Intact Attention span and concentration: Intact Fund of knowledge: Adequate Mood: "Good, I think I'm ready for discharge, but I don't want to leave until I' m all better." Patient indicates he feels depressed at times, that indicates he does not feel depressed, appears to be experiencing some anxiety, mood lability noted Affect: Blunted DIAGNOSES: Unspecified psychotic disorder with history of bipolar disorder with mixed features substance-induced versus noncompliance, polysubstance use disorder, rule out PTSD ASSESSMENT: Patient is observed to be walking hallways, engaging with some peers , has not presented with behavior management challenges, has not been attending unit programming. Patient indicates he has been readmitted due to verbal altercation with father's girlfriend noting father's girlfriend does not want him in the home, denies medication noncompliance. Patient states he had been taking Abilify and trazodone, indicates medications were effective and denies medication side effects. Patient is agreeable to Abilify dose increase, is aware he has hydroxyzine available to him if needed to address symptoms of anxiety/agitation. Will monitor patient's response to medication and monitor for side effects. Will also evaluate patient's safety, resolution of what may have been suicidal ideation, and discharge readiness. Patient indicates when prepared for discharge he plans to return to father's home. This plan is in conflict with business continuity coordinator's understanding that patient is no longer able to return to father's home. Referral for TLS and case management services to be initiated. MANAGEMENT PLAN: Increase Abilify to 15 mg po q hs, continue trazodone 100 mg po q hs, and hydroxyzine 50 mg po q 65 hours PRN anxiety/agitation Maintain safety precautions Patient to attend groups and participate in unit programming to develop coping strategies Engage patient in discharge planning process and arrange meeting with reports system to ensure safe discharge planning when appropriate Patient to follow up with PCM upon discharge TIME SPENT: 35 minutes. Vital Signs Vital Signs Date Time Temp Pulse Resp B/P Pulse Ox O2 Delivery O2 Flow Rate FiO2 05/14/16 06:07 99.1 112 18 119/74 Room Air 05/13/16 08:07 98 Laboratory Data 24H Labs Laboratory Tests 2 05/14/16 06:54: Blood Urea Nitrogen 14, Creatinine 1.06, Sodium Level 139, Potassium Level 3.8, Chloride Level 106, Carbon Dioxide Level 28, Calcium Level 7.6L, Aspartate Amino Transf (AST/SGOT) 36, Alanine Aminotransferase (ALT/SGPT) 57, Alkaline Phosphatase 84, Total Bilirubin 0.3#, Total Protein 6.0L, Albumin 3.3, Albumin/ Globulin Ratio 1.22, Anion Gap 5L, White Blood Count 5.6, Red Blood Count 4.55, Hemoglobin 14.9, Hematocrit 44.6, Mean Corpuscular Volume 98.0H, Mean Corpuscular Hemoglobin 32.8, Mean Corpuscular Hemoglobin Concent 33.4, Red Cell Distribution Width 12.4, Platelet Count 285, Neutrophils (%) (Auto) 67.5H, Lymphocytes (%) (Auto) 14.5L, Monocytes (%) (Auto) 10.2H, Eosinophils (%) (Auto ) 5.0H, Basophils (%) (Auto) 0.6, Neutrophils # (Auto) 3.8, Lymphocytes # (Auto ) 0.9L, Monocytes # (Auto) 0.6, Eosinophils # (Auto) 0.3, Basophils # (Auto) 0.0 , Glomerular Filtration Rate > 60.0, Large Unclassified Cells # 0.1, Large Unclassified Cells % 2.1 CBC/BMP Laboratory Tests 05/14/16 06:54 Calcium Level 7.6 L, Aspartate Amino Transf (AST/SGOT) 36, Alanine Aminotransferase (ALT/SGPT) 57, Alkaline Phosphatase 84, Total Bilirubin 0.3 #, Total Protein 6.0 L, Albumin 3.3, Red Blood Count 4.55, Mean Corpuscular Volume 98.0 H, Mean Corpuscular Hemoglobin 32.8, Mean Corpuscular Hemoglobin Concent 33.4, Red Cell Distribution Width 12.4, Neutrophils (%) (Auto) 67.5 H, Lymphocytes (%) (Auto) 14.5 L, Monocytes (%) (Auto) 10.2 H, Eosinophils (%) ( Auto) 5.0 H, Basophils (%) (Auto) 0.6, Neutrophils # (Auto) 3.8, Lymphocytes # ( Auto) 0.9 L, Monocytes # (Auto) 0.6, Eosinophils # (Auto) 0.3, Basophils # (Auto ) 0.0 Current Medications Current Medications Acetaminophen (Tylenol Tab) 650 mg Q6HP PRN PO HEADACHE or DISCOMFORT Last administered on 05/14/16 16:42; Start 05/12/16 at 16:30; Stop 06/11/16 at 16:29 Al Hydrox/Mg Hydrox/Simethicone (Mylanta) 30 ml Q4HP PRN PO HEARTBURN/ INDIGESTION Last administered on 05/13/16 08:16; Start 05/12/16 at 16:30; Stop at 16:29 Aripiprazole (AbiLIFY) 10 mg QHS PO Last administered on 05/13/16 20:41; Start 05/12/16 at 21:00; Stop 06/11/16 at 20:59 Home Med (Med Rec Complete!) ASDIRECTED XX ; Start 05/12/16 at 13:15; Stop at 13:15; Status DC Hydroxyzine HCl (Atarax) 50 mg Q6HP PRN PO ANXIETY/AGITATION Last administered on 05/14/16 15:53; Start 05/12/16 at 16:30; Stop 06/11/16 at 16:29 Magnesium Hydroxide (Milk Of Magnesia) 30 ml DAILYPRN PRN PO CONSTIPATION; Start 05/12/16 at 16:30; Stop 06/11/16 at 16:29 Nicotine (Nicoderm Cq 21mg) 1 patch DAILY TD Last administered on 05/14/16 08: 02; Start 05/12/16 at 18:00; Stop 06/11/16 at 17:59 Trazodone HCl (Desyrel) 100 mg QHS PO Last administered on 05/13/16 20:41; Start 05/12/16 at 21:00; Stop 06/11/16 at 20:59 Allergies Coded Allergies: Risperidone (Verified Adverse Reaction, Intermediate, gynecomastia, 05/13/16 ) Valproic Acid (Verified Adverse Reaction, Unknown, depression, 05/13/16) Dodie Fontaine May 14, 2016 18:06 Dodie Fontaine May 14, 2016 18:06
[2016-05-14] MEDS: traZODone 100 MG TAB PO SCH (20:19)
[2016-05-14] MEDS: MAALOX 30 ML SUSP *UDC PO PRN (20:26)
[2016-05-15 06:10] VITALS: BP 111/59
[2016-05-15] MEDS: NICOTINE 21MG/24HR 1 EA TRANSDERMAL TD SCH (08:13)
--- NOTE | 2016-05-15 10:00 | IPNPDOC ---
[facility] Progress Note Progress Note DATE OF SERVICE: 05/15/16 HISTORY: The patient 30-year-old male who presented to [facility] for what appeared to be an episode of bipolar terri, was transferred to [facility] due to reports that he was becoming increasingly distorted and due to difficulties with compliance with his Abilify due to insurance authorization's he appeared to decompensate per his dad's report. The patient additionally appeared to have had a for a friend who recently committed suicide which reportedly caused more mood dysregulation. Per father's report, patient had also been giving away his things and acting in unusual manner. Case Briefer met with patient today to evaluate treatment progress on inpatient unit. Patient took first increased dose of Abilify last night, was more engageable today, less distractible, speech less pressured, improvement in impulsivity. Patient reports reduction in symptoms of depression, denied anxiety, denies medication side effects. Patient denied audiovisual hallucinations, exhibited reduced delusional beliefs involving religiosity and grandiosity, also denied suicidal and homicidal ideation. Patient indicates he still experiences compulsion to give things away noting, "I like to help people, I'm a giving person." Patient again today denied challenges with sleep, EMR indicates improvement in sleep last night. Patient indicates appetite is stable, denies vomiting, nausea, diarrhea reported yesterday which he associated with GI infection. Patient presents with no signs of acute distress at time of interaction. Of Note: Call placed to father on 05/14/16 who indicated patient did not miss Abilify doses after discharge, did see primary care provider who increased his trazodone for sleep, indicates patient was sleeping approximately an hour at home and would spend a time at night while awake pacing and listening to music. Patient's father stated patient and others girlfriend did not have altercation per say, but the patient was "scary and in her space." Patient's father stated it is "up in the air" as to whether patient may return to the home noting "I push to get him out too fast last time he needs to stay in the hospital and be stabilized before will know if he can come home." In addition, patient's father indicates patient expressed suicidal ideation to a friend and while in the emergency room, notes patient recently had friend hanging himself and was last week. VITAL SIGNS: See below. NEW TEST RESULTS: No new results. Labs on admission indicated anomalies, on recheck elevated were neut %, mono %, Eos %, MCV and glucose, low were Lymph %, anion gap, calcium, and total protein, PA monitoring. 04/24/[address] ELEVATION, PROBABLY EARLY REPOLARIZATION NO PRIOR TRACING IN THE SYSTEM UDS negative on admission CURRENT MEDICATIONS: See below. MENTAL STATUS EXAMINATION: General: Cooperative with intense eye contact/prolonged gaze, adequate personal hygiene, dressed in personal clothing, ambulates with steady gait, appears stated age Speech: Less pressured, less rapid, coherent, some delay Thought processes: Circumstantial, less tangential today Thought content: Perseveration on admission, no longer fixated on reported verbal disagreement with father's girlfriend Abstract reasoning, and computation: [place] thinking Description of associations: Less loose Description of abnormal or psychotic thoughts: The patient denies any current suicidal or homicidal ideation. Continues to experience delusional believes, remains somewhat religiously preoccupied, some grandiosity associated with desire to help others, spirituality. He does not appear to be responding to internal stimuli Judgment: Poor Insight: Poor Orientation: Alert and oriented 3 Recent and remote memory: Intact Attention span and concentration: Intact Fund of knowledge: Adequate Mood: "Good, the best I've ever felt." Patient reports reduced depression, denies anxiety, reduced mood lability noted Affect: Blunted DIAGNOSES: Unspecified psychotic disorder with history of bipolar disorder with mixed features substance-induced versus noncompliance, polysubstance use disorder, rule out PTSD ASSESSMENT: Patient is observed to be walking hallways, engaging with some peers , has not presented with behavior management challenges, is now attending some groups, displays some improvement to awareness of personal boundaries. Patient states recent dose increase to Abilify is effective, denies medication side effects. Patient is agreeable to Abilify dose increase, is aware he has hydroxyzine available to him if needed to address symptoms of anxiety/ agitation. Will monitor patient's response to medication and monitor for side effects. Will also evaluate patient's safety, resolution of what may have been suicidal ideation, and discharge readiness. Patient indicates when prepared for discharge he plans to return to father's home. This plan is in conflict with marketing technology coordinator's understanding that patient is no longer able to return to father's home, and father's report that it is uncertain if patient is able to return to the home. Referral for TLS and case management services is being initiated. MANAGEMENT PLAN: Continue Abilify 15 mg po q hs, continue trazodone 100 mg po q hs, and hydroxyzine 50 mg po q 6 hours PRN anxiety/agitation Maintain safety precautions Patient to attend groups and participate in unit programming to develop coping strategies Engage patient in discharge planning process and arrange meeting with reports system to ensure safe discharge planning when appropriate Patient to follow up with PCM upon discharge TIME SPENT: 35 minutes. Vital Signs Vital Signs Date Time Temp Pulse Resp B/P Pulse Ox O2 Delivery O2 Flow Rate FiO2 05/15/16 06:10 97.6 88 18 111/59 05/14/16 06:07 Room Air 05/13/16 08:07 98 Current Medications Current Medications Acetaminophen (Tylenol Tab) 650 mg Q6HP PRN PO HEADACHE or DISCOMFORT Last administered on 05/14/16 16:42; Start 05/12/16 at 16:30; Stop 06/11/16 at 16:29 Al Hydrox/Mg Hydrox/Simethicone (Mylanta) 30 ml Q4HP PRN PO HEARTBURN/ INDIGESTION Last administered on 05/14/16 20:26; Start 05/12/16 at 16:30; Stop at 16:29 Aripiprazole (AbiLIFY) 10 mg QHS PO Last administered on 05/13/16 20:41; Start 05/12/16 at 21:00; Stop 05/14/16 at 18:46; Status DC Aripiprazole (AbiLIFY) 15 mg QHS PO Last administered on 05/14/16 20:19; Start 05/14/16 at 21:00; Stop 06/13/16 at 20:59 Home Med (Med Rec Complete!) ASDIRECTED XX ; Start 05/12/16 at 13:15; Stop at 13:15; Status DC Hydroxyzine HCl (Atarax) 50 mg Q6HP PRN PO ANXIETY/AGITATION Last administered on 05/14/16 15:53; Start 05/12/16 at 16:30; Stop 06/11/16 at 16:29 Magnesium Hydroxide (Milk Of Magnesia) 30 ml DAILYPRN PRN PO CONSTIPATION; Start 05/12/16 at 16:30; Stop 06/11/16 at 16:29 Nicotine (Nicoderm Cq 21mg) 1 patch DAILY TD Last administered on 05/15/16 08: 13; Start 05/12/16 at 18:00; Stop 06/11/16 at 17:59 Trazodone HCl (Desyrel) 100 mg QHS PO Last administered on 05/14/16 20:19; Start 05/12/16 at 21:00; Stop 06/11/16 at 20:59 Allergies Coded Allergies: Risperidone (Verified Adverse Reaction, Intermediate, gynecomastia, 05/13/16 ) Valproic Acid (Verified Adverse Reaction, Unknown, depression, 05/13/16) Dodie Fontaine May 15, 2016 10:00
[2016-05-15] MEDS: hydrOXYzine 50 MG TAB PO PRN (12:01)
[2016-05-15] MEDS: SIMETHICONE 80 MG CHEW TAB PO PRN ×2 (15:09→22:30)
[2016-05-15 18:09] VITALS: BP 132/78
[2016-05-15] MEDS: traZODone 100 MG TAB PO SCH (22:29)
[2016-05-16 06:30] VITALS: BP 120/74
[2016-05-16] MEDS: hydrOXYzine 50 MG TAB PO PRN ×2 (06:38→18:49)
[2016-05-16] MEDS: NICOTINE 21MG/24HR 1 EA TRANSDERMAL TD SCH (08:43)
--- NOTE | 2016-05-16 09:09 | IPNPDOC ---
[facility] Progress Note Progress Note DATE OF SERVICE: 05/16/16 HISTORY: The patient 30-year-old male who presented to [facility] for what appeared to be an episode of bipolar terri, was transferred to [facility] due to reports that he was becoming increasingly distorted and due to difficulties with compliance with his Abilify due to insurance authorization's he appeared to decompensate per his dad's report. The patient additionally appeared to have had a for a friend who recently committed suicide which reportedly caused more mood dysregulation. Per father's report, patient had also been giving away his things and acting in unusual manner. Sports Physiotherapist met with patient today to evaluate treatment progress on inpatient unit. Patient remains more engageable today, less distractible, speech less pressured, improvement in impulsivity, a little disorganization noted at time of interaction. Patient denies symptoms of depression and anxiety, denies medication side effects, appears to be minimizing symptoms and is superficially compliant. Patient denied audiovisual hallucinations, exhibited reduced delusional beliefs involving religiosity and grandiosity, also denied suicidal and homicidal ideation. Patient denied experiencing compulsion to give things away, however, noted to filing writer "I like to help people, sometimes I give them things." Patient again today denied challenges with sleep, however, EMR indicates patient slept for shorter duration last night than night before. Patient indicates appetite is stable, denies vomiting, nausea, diarrhea reported yesterday which he associated with GI infection. Patient presents with no signs of acute distress at time of interaction. Patient informs filing writer today that prior to hospital readmission he did consume alcohol and smoked one half joint marijuana. Of Note: Call placed to father on 05/14/16 who indicated patient did not miss Abilify doses after discharge, did see primary care provider who increased his trazodone for sleep, indicates patient was sleeping approximately an hour at home and would spend a time at night while awake pacing and listening to music. Patient's father stated patient and others girlfriend did not have altercation per say, but the patient was "scary and in her space." Patient's father stated it is "up in the air" as to whether patient may return to the home noting "I push to get him out too fast last time he needs to stay in the hospital and be stabilized before will know if he can come home." In addition, patient's father indicates patient expressed suicidal ideation to a friend and while in the emergency room, notes patient recently had friend hanging himself and was last week. VITAL SIGNS: See below. NEW TEST RESULTS: No new results. Labs on admission indicated anomalies, on recheck elevated were neut %, mono %, Eos %, MCV and glucose, low were Lymph %, anion gap, calcium, and total protein, PA monitoring. 04/24/[address] ELEVATION, PROBABLY EARLY REPOLARIZATION NO PRIOR TRACING IN THE SYSTEM UDS negative on admission CURRENT MEDICATIONS: See below. MENTAL STATUS EXAMINATION: General: Cooperative with intense eye contact/prolonged gaze, adequate personal hygiene, dressed in personal clothing, ambulates with steady gait, appears stated age Speech: Less pressured, normal rhythm and volume, coherent, some delay Thought processes: Circumstantial, less tangential today Thought content: Perseveration on admission, makes mention of tension with father's girlfriend, denies suicidal or homicidal ideation Abstract reasoning, and computation: [place] thinking Description of associations: Generally intact, considerably less loose Description of abnormal or psychotic thoughts: The patient denies any current suicidal or homicidal ideation. No delusional thinking communicated at time of interaction, however, remains somewhat religiously preoccupied, some grandiosity associated with desire to help others, spirituality. He does not appear to be responding to internal stimuli Judgment: Poor Insight: Poor Orientation: Alert and oriented 3 Recent and remote memory: Intact Attention span and concentration: Intact Fund of knowledge: Adequate Mood: "Good, the best I've ever felt, really." Patient denies depression and anxiety, reduced mood lability noted Affect: Blunted, some brightening DIAGNOSES: Unspecified psychotic disorder with history of bipolar disorder with mixed features substance-induced versus noncompliance, polysubstance use disorder, rule out PTSD ASSESSMENT: Patient is observed to be walking hallways, engaging with select peers, has not presented with behavior management challenges, is now attending some groups, continues to display improvement to awareness of personal boundaries. Patient states recent dose increase to Abilify is effective, denies medication side effects. Patient remains aware he has hydroxyzine available to him if needed to address symptoms of anxiety/agitation. Will monitor patient's response to medication and monitor for side effects. Will also evaluate patient' s safety, resolution of what may have been suicidal ideation, and discharge readiness. Patient indicates when prepared for discharge he plans to return to father's home or go to an apartment which he states his father will pay for until TLS housing becomes available. This plan remains in conflict with office coordinator's understanding that patient is no longer able to return to father's home, and father's report that it is uncertain if patient is able to return to the home. Referral for TLS and case management services is being initiated, patient has [facility] services in place. MANAGEMENT PLAN: Continue Abilify 15 mg po q hs, continue trazodone 100 mg po q hs, and hydroxyzine 50 mg po q 6 hours PRN anxiety/agitation Maintain safety precautions Patient to attend groups and participate in unit programming to develop coping strategies Engage patient in discharge planning process and arrange meeting with reports system to ensure safe discharge planning when appropriate Patient to follow up with PCM upon discharge TIME SPENT: 35 minutes Vital Signs Vital Signs Date Time Temp Pulse Resp B/P Pulse Ox O2 Delivery O2 Flow Rate FiO2 05/16/16 06:30 97.5 99 16 120/74 05/14/16 06:07 Room Air 05/13/16 08:07 98 Current Medications Current Medications Acetaminophen (Tylenol Tab) 650 mg Q6HP PRN PO HEADACHE or DISCOMFORT Last administered on 05/14/16 16:42; Start 05/12/16 at 16:30; Stop 06/11/16 at 16:29 Al Hydrox/Mg Hydrox/Simethicone (Mylanta) 30 ml Q4HP PRN PO HEARTBURN/ INDIGESTION Last administered on 05/14/16 20:26; Start 05/12/16 at 16:30; Stop at 16:29 Aripiprazole (AbiLIFY) 10 mg QHS PO Last administered on 05/13/16 20:41; Start 05/12/16 at 21:00; Stop 05/14/16 at 18:46; Status DC Aripiprazole (AbiLIFY) 15 mg QHS PO Last administered on 05/15/16 21:41; Start 05/14/16 at 21:00; Stop 06/13/16 at 20:59 Home Med (Med Rec Complete!) ASDIRECTED XX ; Start 05/12/16 at 13:15; Stop at 13:15; Status DC Hydroxyzine HCl (Atarax) 50 mg Q6HP PRN PO ANXIETY/AGITATION Last administered on 05/16/16 06:38; Start 05/12/16 at 16:30; Stop 06/11/16 at 16:29 Magnesium Hydroxide (Milk Of Magnesia) 30 ml DAILYPRN PRN PO CONSTIPATION; Start 05/12/16 at 16:30; Stop 06/11/16 at 16:29 Nicotine (Nicoderm Cq 21mg) 1 patch DAILY TD Last administered on 05/16/16 08: 43; Start 05/12/16 at 18:00; Stop 06/11/16 at 17:59 Simethicone (Mylicon) 80 mg Q6HP PRN PO GAS PAIN Last administered on 05/15/16 22:30; Start 05/15/16 at 14:30; Stop 06/14/16 at 14:29 Trazodone HCl (Desyrel) 100 mg QHS PO Last administered on 05/15/16 22:29; Start 05/12/16 at 21:00; Stop 06/11/16 at 20:59 Allergies Coded Allergies: Risperidone (Verified Adverse Reaction, Intermediate, gynecomastia, 05/13/16 ) Valproic Acid (Verified Adverse Reaction, Unknown, depression, 05/13/16) Dodie Fontaine May 16, 2016 09:09
[2016-05-16] MEDS: SIMETHICONE 80 MG CHEW TAB PO PRN ×2 (13:35→22:43)
[2016-05-16 18:00] VITALS: BP 144/78
[2016-05-16] MEDS: ACETAMINOPHEN TAB 650MG DOSE (2X325MG) PO PRN (20:18)
[2016-05-16] MEDS: traZODone 100 MG TAB PO SCH (22:09)
[2016-05-17 06:22] VITALS: BP 131/85
[2016-05-17] MEDS: NICOTINE 21MG/24HR 1 EA TRANSDERMAL TD SCH (08:02)
[2016-05-17] MEDS: hydrOXYzine 50 MG TAB PO PRN ×2 (09:58→22:42)
[2016-05-17] MEDS: MOM 30ML SUSPENSION UDC PO PRN (14:38)
--- NOTE | 2016-05-17 15:30 | IPNPDOC ---
[facility] Progress Note Progress Note DATE OF SERVICE: 05/17/16 HISTORY: The patient 30-year-old male who presented to [facility] for what appeared to be an episode of bipolar terri, was transferred to [facility] due to reports that he was becoming increasingly distorted and due to difficulties with compliance with his Abilify due to insurance authorization's he appeared to decompensate per his father's report. The patient additionally appeared to have had a for a friend who recently committed suicide which reportedly caused more mood dysregulation. Per father's report, patient had also been giving away his things and acting in unusual manner. Tool Sharpener met with patient today to evaluate treatment progress on inpatient unit. Patient remains engageable, appears less distractible, speech remains pressured but is reduced, improvement in impulsivity, some disorganization and tangentiality noted at time of interaction. Patient denies symptoms of depression and anxiety, denies medication side effects, appears to be minimizing symptoms and remains superficially compliant. Patient denied audiovisual hallucinations, exhibited reduced delusional beliefs involving religiosity and grandiosity, also denied suicidal and homicidal ideation. Patient reiterated compulsion to give things away to others. Patient again today denied challenges with sleep, however, EMR indicates patient continues to struggle with latency, denies nighttime waking which is consistent with EMR. Patient indicates appetite is stable, nice physical pain, and presents with no signs of acute distress at time of interaction. Patient's nurse informed machine sign writer that this morning patient was demanding discharge and if not discharged stated he would refuse his medications. Per RN, on follow-up, patient apologized for threat of noncompliance and indicated he intends to take medications in effort to stabilize for discharge. Patient informs machine sign writer yesterday that prior to hospital readmission he did consume alcohol and smoked one half joint marijuana. Of note: Call placed father on 05/17/16 to provide treatment update. Patient's father expressed agreement with treatment trajectory and denied having concerns regarding patient's response to medication. Patient's father verified that discharge to home is no longer an option for patient. Of Note: Call placed to father on 05/14/16 who indicated patient did not miss Abilify doses after discharge, did see primary care provider who increased his trazodone for sleep, indicates patient was sleeping approximately an hour at home and would spend a time at night while awake pacing and listening to music. Patient's father stated patient and others girlfriend did not have altercation per say, but the patient was "scary and in her space." Patient's father stated it is "up in the air" as to whether patient may return to the home noting "I push to get him out too fast last time he needs to stay in the hospital and be stabilized before will know if he can come home." In addition, patient's father indicates patient expressed suicidal ideation to a friend and while in the emergency room, notes patient recently had friend hanging himself and was last week. VITAL SIGNS: See below. NEW TEST RESULTS: No new results. Labs on admission indicated anomalies, on recheck elevated were neut %, mono %, Eos %, MCV and glucose, low were Lymph %, anion gap, calcium, and total protein, PA monitoring. 04/24/[address] ELEVATION, PROBABLY EARLY REPOLARIZATION NO PRIOR TRACING IN THE SYSTEM UDS negative on admission CURRENT MEDICATIONS: See below. MENTAL STATUS EXAMINATION: General: Generally cooperative with intense eye contact/prolonged gaze, adequate personal hygiene, dressed in personal clothing, ambulates with steady gait, appears stated age Speech: Less pressured, normal rhythm and volume, coherent, some delay Thought processes: Remains circumstantial, less tangential today Thought content: Perseveration on admission, makes mention of tension with father's girlfriend, denies suicidal or homicidal ideation Abstract reasoning, and computation: [place] thinking Description of associations: Generally intact, considerably less loose Description of abnormal or psychotic thoughts: The patient denies any current suicidal or homicidal ideation. Expresses delusional thinking related to adventist and ability to help others. Remains somewhat religiously preoccupied, some grandiosity associated with desire to help others, spirituality. He does not appear to be responding to internal stimuli Judgment: Poor Insight: Poor Orientation: Alert and oriented 3 Recent and remote memory: Intact Attention span and concentration: Intact Fund of knowledge: Adequate Mood: "Good, never better and I'd like to discharge." Patient appears depressed but denies depression and anxiety, reduced mood lability noted Affect: Blunted, some brightening DIAGNOSES: Unspecified psychotic disorder with history of bipolar disorder with mixed features substance-induced versus noncompliance, polysubstance use disorder, rule out PTSD ASSESSMENT: Patient is observed to be walking hallways, engaging with select peers, is attending groups, is generally been in behavioral control. Patient today shows reduced awareness of personal boundaries, attempted to verbally intimidate RN this morning, apologized on follow-up. Patient is agreeable to Abilify dose increase in effort to further stabilize mood and sleep and reduce delusional thinking, denies medication side effects, continues to decline injectable medication. Patient remains aware he has hydroxyzine available to him if needed to address symptoms of anxiety/agitation, continues to take trazodone for sleep. Will monitor patient's response to medication and monitor for side effects. Will also evaluate patient's safety, resolution of what may have been suicidal ideation, and discharge readiness. Patient indicates when prepared for discharge he plans to return to father's home or go to an apartment which he states his father will pay for until TLS housing becomes available. This plan remains in conflict with residency program coordinator's understanding that patient is no longer able to return to father's home, and father's report that it is uncertain if patient is able to return to the home. Referral for TLS and case management services is being initiated, patient has NARC[facility] services in place. MANAGEMENT PLAN: Increase Abilify to 20 mg po q hs, continue trazodone 100 mg po q hs, and hydroxyzine 50 mg po q 6 hours PRN anxiety/agitation Maintain safety precautions Patient to attend groups and participate in unit programming to develop coping strategies Engage patient in discharge planning process and arrange meeting with reports system to ensure safe discharge planning when appropriate Patient to follow up with PCM upon discharge TIME SPENT: 35 minutes Vital Signs Vital Signs Date Time Temp Pulse Resp B/P Pulse Ox O2 Delivery O2 Flow Rate FiO2 05/17/16 06:22 98.4 105 18 131/85 05/14/16 06:07 Room Air 05/13/16 08:07 98 Current Medications Current Medications Acetaminophen (Tylenol Tab) 650 mg Q6HP PRN PO HEADACHE or DISCOMFORT Last administered on 05/16/16 20:18; Start 05/12/16 at 16:30; Stop 06/11/16 at 16:29 Al Hydrox/Mg Hydrox/Simethicone (Mylanta) 30 ml Q4HP PRN PO HEARTBURN/ INDIGESTION Last administered on 05/14/16 20:26; Start 05/12/16 at 16:30; Stop at 16:29 Aripiprazole (AbiLIFY) 10 mg QHS PO Last administered on 05/13/16 20:41; Start 05/12/16 at 21:00; Stop 05/14/16 at 18:46; Status DC Aripiprazole (AbiLIFY) 15 mg QHS PO Last administered on 05/16/16 20:19; Start 05/14/16 at 21:00; Stop 06/13/16 at 20:59 Home Med (Med Rec Complete!) ASDIRECTED XX ; Start 05/12/16 at 13:15; Stop at 13:15; Status DC Hydroxyzine HCl (Atarax) 50 mg Q6HP PRN PO ANXIETY/AGITATION Last administered on 05/17/16 09:58; Start 05/12/16 at 16:30; Stop 06/11/16 at 16:29 Magnesium Hydroxide (Milk Of Magnesia) 30 ml DAILYPRN PRN PO CONSTIPATION Last administered on 05/17/16 14:38; Start 05/12/16 at 16:30; Stop 06/11/16 at 16:29 Nicotine (Nicoderm Cq 21mg) 1 patch DAILY TD Last administered on 05/17/16 08: 02; Start 05/12/16 at 18:00; Stop 06/11/16 at 17:59 Simethicone (Mylicon) 80 mg Q6HP PRN PO GAS PAIN Last administered on 05/16/16 22:43; Start 05/15/16 at 14:30; Stop 06/14/16 at 14:29 Trazodone HCl (Desyrel) 100 mg QHS PO Last administered on 05/16/16 22:09; Start 05/12/16 at 21:00; Stop 06/11/16 at 20:59 Allergies Coded Allergies: Risperidone (Verified Adverse Reaction, Intermediate, gynecomastia, 05/13/16 ) Valproic Acid (Verified Adverse Reaction, Unknown, depression, 05/13/16) Dodie Fontaine May 17, 2016 15:30
[2016-05-17 18:00] VITALS: BP 130/69
[2016-05-17] MEDS: ARIPiprazole 10 MG TAB PO SCH (21:50)
[2016-05-17] MEDS: traZODone 100 MG TAB PO SCH (21:50)
[2016-05-18] MEDS: ACETAMINOPHEN TAB 650MG DOSE (2X325MG) PO PRN ×2 (05:34→23:06)
[2016-05-18 07:03] VITALS: BP 144/71
[2016-05-18] MEDS: NICOTINE 21MG/24HR 1 EA TRANSDERMAL TD SCH (08:06)
[2016-05-18] MEDS: IBUPROFEN 400 MG TAB PO PRN ×2 (12:09→22:29)
[2016-05-18 12:59] LABS: ALBUMIN 3.6 GM/DL (3.2-5.2); ALBUMIN/GLOBULIN RATIO 1.16 (1.00-1.93); ALKALINE PHOSPHATASE 94 U/L (45-117); ALT/SGPT 73 U/L (12-78); ANION GAP 6 MEQ/L (8-16); AST/SGOT 34 U/L (15-37); BILIRUBIN,TOTAL 0.2 MG/DL (0.2-1.0); BLOOD UREA NITROGEN 12 MG/DL (7-18); CALCIUM LEVEL 8.7 MG/DL (8.5-10.1); CARBON DIOXIDE LEVEL 30 MEQ/L (21-32); CHLORIDE LEVEL 104 MEQ/L (98-107); CREATININE FOR GFR 0.95 MG/DL (0.70-1.30); GLOMERULAR FILTRATION RATE > 60.0 (>60); GLUCOSE, FASTING 92 MG/DL (70-105); POTASSIUM SERUM 4.4 MEQ/L (3.5-5.1); SODIUM LEVEL 140 MEQ/L (136-145); TOTAL PROTEIN 6.7 GM/DL (6.4-8.2)
[2016-05-18] MEDS: hydrOXYzine 50 MG TAB PO PRN ×2 (16:25→23:06)
[2016-05-18 18:00] VITALS: BP 132/68
[2016-05-18] MEDS: ARIPiprazole 10 MG TAB PO SCH (21:33)
[2016-05-18] MEDS: traZODone 100 MG TAB PO SCH (23:07)
[2016-05-19 06:25] VITALS: BP 122/60
[2016-05-19] MEDS: NICOTINE 21MG/24HR 1 EA TRANSDERMAL TD SCH (08:09)
[2016-05-19] MEDS: IBUPROFEN 400 MG TAB PO PRN (13:48)
[2016-05-19 18:00] VITALS: BP 120/65
[2016-05-19] MEDS: ACETAMINOPHEN TAB 650MG DOSE (2X325MG) PO PRN (18:03)
[2016-05-19] MEDS: ARIPiprazole 10 MG TAB PO SCH (20:01)
[2016-05-19] MEDS: traZODone 100 MG TAB PO SCH (22:46)
[2016-05-20 06:37] VITALS: BP 136/80
[2016-05-20] MEDS: IBUPROFEN 400 MG TAB PO PRN ×2 (08:19→20:17)
[2016-05-20] MEDS: NICOTINE 21MG/24HR 1 EA TRANSDERMAL TD SCH (08:19)
[2016-05-20] MEDS: hydrOXYzine 50 MG TAB PO PRN (16:11)
--- NOTE | 2016-05-20 17:39 | IPNPDOC ---
[facility] Progress Note Progress Note DATE OF SERVICE: 05/20/16 HISTORY: The patient 30-year-old male who presented to [facility] for what appeared to be an episode of bipolar terri, was transferred to [facility] due to reports that he was becoming increasingly distorted and due to difficulties with compliance with his Abilify due to insurance authorization's he appeared to decompensate per his father's report. The patient additionally appeared to have had a for a friend who recently committed suicide which reportedly caused more mood dysregulation. Per father's report, patient had also been giving away his things and acting in unusual manner. Chief Technical Officer met with patient today to evaluate treatment progress on inpatient unit. Patient remains engageable, appears less distractible, speech remains pressured but is reduced, improvement in impulsivity, some disorganization and tangentiality noted at time of interaction. Patient denies symptoms of depression and anxiety, denies medication side effects, continues to minimize symptoms and remains superficially compliant, is trying hard to provide answers he believes proposal lead writer wants to hear. Patient denies audiovisual hallucinations, exhibites reduced delusional beliefs involving religiosity and grandiosity, also denies suicidal and homicidal ideation. Patient informs proposal lead writer today he has met "someone (on unit) who is special to me , I like her like a girlfriend in the future, not now though, because she is ." Patient is receptive to be reminded to focus on his own treatment. Patient asked several times about discharge, indicates he will be going to supportive housing through [facility], is refusing CR and independent level housing. Patient states he is sleeping better and, per EMR, is now sleeping 5-5-1/2 hours per night, he denies nightmares symptoms. Patient indicates appetite is stable, nice physical pain, and presents with no signs of acute distress at time of interaction. Patient informed proposal lead writer that prior to hospital readmission he did consume alcohol and smoked one half joint marijuana. Of Note: Treatment update provides patient's father who indicated they're trying to arrange housing with [facility]. 's father indicated that father and girlfriend live approximately 5 miles from where patient will be living, added father intends to give patient his medication daily and make sure he takes them , informs proposal lead writer he does feel that patient will use drugs or alcohol in the apartment and added he does not have concerns about patient's discharge to [facility] supportive apartment. Of note: Call placed father on 05/17/16 to provide treatment update. Patient's father expressed agreement with treatment trajectory and denied having concerns regarding patient's response to medication. Patient's father verified that discharge to home is no longer an option for patient. Of Note: Call placed to father on 05/14/16 who indicated patient did not miss Abilify doses after discharge, did see primary care provider who increased his trazodone for sleep, indicates patient was sleeping approximately an hour at home and would spend a time at night while awake pacing and listening to music. Patient's father stated patient and others girlfriend did not have altercation per say, but the patient was "scary and in her space." Patient's father stated it is "up in the air" as to whether patient may return to the home noting "I push to get him out too fast last time he needs to stay in the hospital and be stabilized before will know if he can come home." In addition, patient's father indicates patient expressed suicidal ideation to a friend and while in the emergency room, notes patient recently had friend hanging himself and was last week. VITAL SIGNS: See below. NEW TEST RESULTS: No new results. Labs on admission indicated anomalies, on recheck elevated were neut %, mono %, Eos %, MCV and glucose, low were Lymph %, anion gap, calcium, and total protein, PA monitoring. 04/24/[address] ELEVATION, PROBABLY EARLY REPOLARIZATION NO PRIOR TRACING IN THE SYSTEM UDS negative on admission CURRENT MEDICATIONS: See below. MENTAL STATUS EXAMINATION: General: Generally cooperative with intense eye contact/prolonged gaze, adequate personal hygiene, dressed in personal clothing, ambulates with steady gait, appears stated age Speech: Less pressured, normal rhythm and volume, coherent, some delay Thought processes: Remains circumstantial and tangential Thought content: Predominantly rational and logical, tangential, random thoughts at times Abstract reasoning, and computation: [place] thinking Description of associations: More intact, less loose Description of abnormal or psychotic thoughts: The patient denies any current suicidal or homicidal ideation. Expresses less delusional thinking related to sikh and ability to help others, continues to express some grandiosity associated with desire to help others, spirituality. He does not appear to be responding to internal stimuli Judgment: Limited, some improvement Insight: Limited, some improvement Orientation: Alert and oriented 3 Recent and remote memory: Intact Attention span and concentration: Intact Fund of knowledge: Adequate Mood: "Good, never better, best I've ever felt." Patient appears less depressed , continues to deny depression and anxiety, reduced mood lability noted Affect: Blunted, some brightening DIAGNOSES: Unspecified psychotic disorder with history of bipolar disorder with mixed features substance-induced versus noncompliance, polysubstance use disorder, rule out PTSD ASSESSMENT: Patient is observed to be walking hallways, engaging with select peers, is attending groups, remains in behavioral control. Patient today shows increased awareness of personal boundaries. Patient is agreeable to Abilify dose increase in effort to further stabilize mood and sleep and reduce tangential, delusional thinking, denies medication side effects, indicated today he will consider injectable medication if it means he will be able to discharge. Patient remains aware he has hydroxyzine available to him if needed to address symptoms of anxiety/agitation, continues to take trazodone for sleep. Will monitor patient's response to medication and monitor for side effects. Will also evaluate patient's safety, resolution of what may have been suicidal ideation, and discharge readiness. Patient indicates when prepared for discharge he plans to go to [facility] supportive housing. Patient verbalizes awareness that he is no longer able to return to father's home. Referral for [facility] and case management services has been initiated, patient has [facility] services in place. MANAGEMENT PLAN: Increase Abilify to 25 mg po q hs, continue trazodone 100 mg po q hs, and hydroxyzine 50 mg po q 6 hours PRN anxiety/agitation Maintain safety precautions Patient to attend groups and participate in unit programming to develop coping strategies Engage patient in discharge planning process and arrange meeting with reports system to ensure safe discharge planning when appropriate Patient to follow up with PCM upon discharge TIME SPENT: 35 minutes Vital Signs Vital Signs Date Time Temp Pulse Resp B/P Pulse Ox O2 Delivery O2 Flow Rate FiO2 05/20/16 06:37 97.7 86 16 136/80 05/18/16 18:00 Room Air Current Medications Current Medications Acetaminophen (Tylenol Tab) 650 mg Q6HP PRN PO HEADACHE or DISCOMFORT Last administered on 05/19/16t 18:03; Start 05/12/16 at 16:30; Stop 06/11/16 at 16:29 Al Hydrox/Mg Hydrox/Simethicone (Mylanta) 30 ml Q4HP PRN PO HEARTBURN/ INDIGESTION Last administered on 05/14/16 20:26; Start 05/12/16 at 16:30; Stop at 16:29 Aripiprazole (AbiLIFY) 10 mg QHS PO Last administered on 05/13/16 20:41; Start 05/12/16 at 21:00; Stop 05/14/16 at 18:46; Status DC Aripiprazole (AbiLIFY) 15 mg QHS PO Last administered on 05/16/16 20:19; Start 05/14/16 at 21:00; Stop 05/17/16 at 15:40; Status DC Aripiprazole (AbiLIFY) 20 mg QHS PO Last administered on 05/19/16 20:01; Start 05/17/16 at 21:00; Stop 05/20/16 at 17:24; Status DC Aripiprazole (AbiLIFY) 25 mg QHS PO ; Start 05/20/16 at 21:00; Stop 06/19/16 at 20:59; Status UNV Home Med (Med Rec Complete!) ASDIRECTED XX ; Start 05/12/16 at 13:15; Stop at 13:15; Status DC Hydroxyzine HCl (Atarax) 50 mg Q6HP PRN PO ANXIETY/AGITATION Last administered on 05/20/16 16:11; Start 05/12/16 at 16:30; Stop 06/11/16 at 16:29 Ibuprofen (Advil) 400 mg Q6HP PRN PO PAIN Last administered on 05/20/16 08:19 ; Start 05/18/16 at 11:30; Stop 06/17/16 at 11:29 Magnesium Hydroxide (Milk Of Magnesia) 30 ml DAILYPRN PRN PO CONSTIPATION Last administered on 05/17/16 14:38; Start 05/12/16 at 16:30; Stop 06/11/16 at 16:29 Nicotine (Nicoderm Cq 21mg) 1 patch DAILY TD Last administered on 05/20/16 08: 19; Start 05/12/16 at 18:00; Stop 06/11/16 at 17:59 Simethicone (Mylicon) 80 mg Q6HP PRN PO GAS PAIN Last administered on 05/16/16 22:43; Start 05/15/16 at 14:30; Stop 06/14/16 at 14:29 Trazodone HCl (Desyrel) 100 mg QHS PO Last administered on 05/19/16 22:46; Start 05/12/16 at 21:00; Stop 06/11/16 at 20:59 Allergies Coded Allergies: Risperidone (Verified Adverse Reaction, Intermediate, gynecomastia, 05/13/16 ) Valproic Acid (Verified Adverse Reaction, Unknown, depression, 05/13/16) Dodie Fontaine May 20, 2016 17:39
[2016-05-20 18:00] VITALS: BP 145/83
[2016-05-20] MEDS: traZODone 100 MG TAB PO SCH (20:16)
[2016-05-20] MEDS: ARIPiprazole 10 MG TAB PO SCH (20:17)
[2016-05-21] MEDS: ACETAMINOPHEN TAB 650MG DOSE (2X325MG) PO PRN ×3 (00:42→20:20)
[2016-05-21] MEDS: IBUPROFEN 400 MG TAB PO PRN ×2 (06:05→17:46)
[2016-05-21 06:12] VITALS: BP 128/72
[2016-05-21] MEDS: NICOTINE 21MG/24HR 1 EA TRANSDERMAL TD SCH (08:10)
[2016-05-21] MEDS: MOM 30ML SUSPENSION UDC PO PRN (10:04)
--- NOTE | 2016-05-21 14:34 | IPNPDOC ---
[facility] Progress Note Progress Note DATE OF SERVICE: 05/21/16 HISTORY: The patient 30-year-old male who presented to [facility] for what appeared to be an episode of bipolar terri, was transferred to [facility] due to reports that he was becoming increasingly distorted and due to difficulties with compliance with his Abilify due to insurance authorization's he appeared to decompensate per his father's report. The patient additionally appeared to have had a for a friend who recently committed suicide which reportedly caused more mood dysregulation. Per father's report, patient had also been giving away his things and acting in unusual manner. Field Collector met with patient today to evaluate treatment progress on inpatient unit. Patient remains engageable, is noticeably less distractible, speech is less pressured, exhibits reduced impulsivity, less disorganization and tangentiality noted at time of interaction. Patient denies symptoms of depression and anxiety , denies medication side effects, continues to minimize symptoms but appears more genuine in his responses. Patient denies audiovisual hallucinations, displays no delusional thinking, verbalizes minimal grandiosity related to "I'm a helpful benji, I just like helping other people." Patient denies suicidal and homicidal ideation. Patient informs short story writer, however, that his uncle shot himself to yesterday, adds he was informed by visitors he had last night, expresses grief related to of uncle. Patient indicates recent Abilify dose increase is effective, indicates his thoughts are "clear," notes improvement to frustration tolerance related to coping with other patients on unit. Patient states he is sleeping better and, per EMR, is now sleeping 5-5-1/2 hours per night, he denies nightmares symptoms. Patient indicates appetite is stable, nice physical pain, and presents with no signs of acute distress at time of interaction. Field Collector and patient spoke at length today regarding discharge preparedness, patient was strongly advised to participate in outpatient substance abuse treatment and to avoid using substances after discharged from treatment. Patient able to verbalize connection between substance abuse and psychiatric symptom exacerbation, however, also indicated that he does not perceive marijuana to be a drug but rather a "flower" that is natural and harmless, reluctantly agrees to abstain from use. Patient reports improved sleep, per EMR slept 5 hours last night, denies challenges to appetite, concentration or focus, or energy level. Of Note: Treatment update provides patient's father who indicated they're trying to arrange housing with [facility]. 's father indicated that father and girlfriend live approximately 5 miles from where patient will be living, added father intends to give patient his medication daily and make sure he takes them , informs short story writer he does feel that patient will use drugs or alcohol in the apartment and added he does not have concerns about patient's discharge to [facility] supportive apartment. Of note: Call placed father on 05/17/16 to provide treatment update. Patient's father expressed agreement with treatment trajectory and denied having concerns regarding patient's response to medication. Patient's father verified that discharge to home is no longer an option for patient. Of Note: Call placed to father on 05/14/16 who indicated patient did not miss Abilify doses after discharge, did see primary care provider who increased his trazodone for sleep, indicates patient was sleeping approximately an hour at home and would spend a time at night while awake pacing and listening to music. Patient's father stated patient and others girlfriend did not have altercation per say, but the patient was "scary and in her space." Patient's father stated it is "up in the air" as to whether patient may return to the home noting "I push to get him out too fast last time he needs to stay in the hospital and be stabilized before will know if he can come home." In addition, patient's father indicates patient expressed suicidal ideation to a friend and while in the emergency room, notes patient recently had friend hanging himself and was last week. VITAL SIGNS: See below. NEW TEST RESULTS: No new results. Labs on admission indicated anomalies, on recheck elevated were neut %, mono %, Eos %, MCV and glucose, low were Lymph %, anion gap, calcium, and total protein, PA monitoring. 04/24/[address] ELEVATION, PROBABLY EARLY REPOLARIZATION NO PRIOR TRACING IN THE SYSTEM UDS negative on admission CURRENT MEDICATIONS: See below. MENTAL STATUS EXAMINATION: General: Generally cooperative with less intense eye contact, adequate personal hygiene, dressed in personal clothing, ambulates with steady gait, appears stated age Speech: Less pressured, normal rhythm and volume, coherent, some delay Thought processes: Less tangential, no circumstantiality Thought content: Predominantly rational and logical, less tangentiality Abstract reasoning, and computation: Erin thinking Description of associations: Generally intact Description of abnormal or psychotic thoughts: The patient denies any current suicidal or homicidal ideation. Patient expresses noticeably reduced delusional thinking, does not appear to be responding to internal stimuli Judgment: Limited, continues to improve Insight: Limited, continues to improve Orientation: Alert and oriented 3 Recent and remote memory: Intact Attention span and concentration: Intact Fund of knowledge: Adequate Mood: "I feel better, the medication dose increase is good, I'm clearer." Patient appears less depressed, continues to deny depression and anxiety, reduced mood lability noted Affect: Constricted, brightens frequently inappropriate, congruent with affect DIAGNOSES: Unspecified psychotic disorder with history of bipolar disorder with mixed features substance-induced versus noncompliance, polysubstance use disorder, rule out PTSD ASSESSMENT: Patient is observed to be walking hallways, engaging with select peers, is attending groups, remains in behavioral control. Patient continues to display increased awareness of personal boundaries, is engaging appropriately with staff and peers. Patient indicates recent Abilify dose is effective, states he feels his thinking is clear and he denies medication side effects, exhibits reduced tangentiality, delusional thinking, indicates he is agreeable to injectable medication in outpatient environment once stabilized on current dose of Abilify. Patient continues to utilize hydroxyzine PRN for symptoms of anxiety/agitation, also continues to take trazodone for sleep. Will monitor patient's response to medication and monitor for side effects. Will also evaluate patient's safety and will begin to prepare patient for discharge. Patient verbalizes awareness that he will go to [facility] supportive housing (has refuse ER and independent living level), is in agreement with father assisting with medications and ensuring the patient is being medication compliant. Patient is strongly encouraged to consider participating in outpatient substance abuse treatment, indicates he is willing to attend psychotherapy and medication management at [facility]. Referral for [facility] and case management services has been initiated, patient has [facility] case management and [facility] services in place. MANAGEMENT PLAN: Continue Abilify 25 mg po q hs, continue trazodone 100 mg po q hs, and hydroxyzine 50 mg po q 6 hours PRN anxiety/agitation Maintain safety precautions Patient to attend groups and participate in unit programming to develop coping strategies Engage patient in discharge planning process and arrange meeting with reports system to ensure safe discharge planning when appropriate Patient to follow up with PCM upon discharge TIME SPENT: 35 minutes Vital Signs Vital Signs Date Time Temp Pulse Resp B/P Pulse Ox O2 Delivery O2 Flow Rate FiO2 05/21/16 06:12 97.5 102 16 128/72 05/18/16 18:00 Room Air Current Medications Current Medications Acetaminophen (Tylenol Tab) 650 mg Q6HP PRN PO HEADACHE or DISCOMFORT Last administered on 05/21/16 12:03; Start 05/12/16 at 16:30; Stop 06/11/16 at 16:29 Al Hydrox/Mg Hydrox/Simethicone (Mylanta) 30 ml Q4HP PRN PO HEARTBURN/ INDIGESTION Last administered on 05/14/16 20:26; Start 05/12/16 at 16:30; Stop at 16:29 Aripiprazole (AbiLIFY) 10 mg QHS PO Last administered on 05/13/16 20:41; Start 05/12/16 at 21:00; Stop 05/14/16 at 18:46; Status DC Aripiprazole (AbiLIFY) 15 mg QHS PO Last administered on 05/16/16 20:19; Start 05/14/16 at 21:00; Stop 05/17/16 at 15:40; Status DC Aripiprazole (AbiLIFY) 20 mg QHS PO Last administered on 05/19/16 20:01; Start 05/17/16 at 21:00; Stop 05/20/16 at 17:24; Status DC Aripiprazole (AbiLIFY) 25 mg QHS PO Last administered on 05/20/16 20:17; Start 05/20/16 at 21:00; Stop 06/19/16 at 20:59 Home Med (Med Rec Complete!) ASDIRECTED XX ; Start 05/12/16 at 13:15; Stop at 13:15; Status DC Hydroxyzine HCl (Atarax) 50 mg Q6HP PRN PO ANXIETY/AGITATION Last administered on 05/20/16 16:11; Start 05/12/16 at 16:30; Stop 06/11/16 at 16:29 Ibuprofen (Advil) 400 mg Q6HP PRN PO PAIN Last administered on 05/21/16 06:05 ; Start 05/18/16 at 11:30; Stop 06/17/16 at 11:29 Magnesium Hydroxide (Milk Of Magnesia) 30 ml DAILYPRN PRN PO CONSTIPATION Last administered on 05/21/16 10:04; Start 05/12/16 at 16:30; Stop 06/11/16 at 16:29 Nicotine (Nicoderm Cq 21mg) 1 patch DAILY TD Last administered on 05/21/16 08: 10; Start 05/12/16 at 18:00; Stop 06/11/16 at 17:59 Simethicone (Mylicon) 80 mg Q6HP PRN PO GAS PAIN Last administered on 05/16/16 22:43; Start 05/15/16 at 14:30; Stop 06/14/16 at 14:29 Trazodone HCl (Desyrel) 100 mg QHS PO Last administered on 05/20/16 20:16; Start 05/12/16 at 21:00; Stop 06/11/16 at 20:59 Allergies Coded Allergies: Risperidone (Verified Adverse Reaction, Intermediate, gynecomastia, 05/13/16 ) Valproic Acid (Verified Adverse Reaction, Unknown, depression, 05/13/16) Dodie Fontaine May 21, 2016 14:34
[2016-05-21 18:00] VITALS: BP 118/64
[2016-05-21] MEDS: ARIPiprazole 10 MG TAB PO SCH (20:20)
[2016-05-21] MEDS: traZODone 100 MG TAB PO SCH (21:42)
[2016-05-22 06:32] VITALS: BP 139/79
[2016-05-22] MEDS: NICOTINE 21MG/24HR 1 EA TRANSDERMAL TD SCH (08:10)
--- NOTE | 2016-05-22 13:21 | IPNPDOC ---
[facility] Progress Note Progress Note DATE OF SERVICE: 05/22/16 HISTORY: The patient 30-year-old male who presented to [facility] for what appeared to be an episode of bipolar terri, was transferred to [facility] due to reports that he was becoming increasingly distorted and due to difficulties with compliance with his Abilify due to insurance authorization's he appeared to decompensate per his father's report. The patient additionally appeared to have had a for a friend who recently committed suicide which reportedly caused more mood dysregulation. Per father's report, patient had also been giving away his things and acting in unusual manner. Application Consultant met with patient today to evaluate treatment progress on inpatient unit. Patient remains engageable, no indication of distractibility, no pressured speech and no impulsivity observed. Patient denies symptoms of depression and anxiety, denies medication side effects, is no longer minimizing symptoms, appears to be engaging in genuine manner and has been observant of other people's boundaries. Patient denies audiovisual hallucinations, displays no delusional thinking, verbalizes no grandiosity, or religion preoccupation. Patient denies suicidal and homicidal ideation. Patient speaks openly with creative services writer regarding recent suicide of uncle, indicates he feels able to "cope" with loss, is able to verbalize support system and how to access, and lists concrete strategies for managing symptoms of anxiety, depression or suicidal thinking should the reemerge. Patient indicates current Abilify dose increase is effective, describes thoughts as "clear and grounded," denies irritability, agitation, and mood lability. Patient states he is sleeping better and, per EMR, sleep remains improved, denies nightmares symptoms. Patient indicates appetite is stable, denies physical pain, and presents with no signs of acute distress at time of interaction. Application Consultant again strongly advised patient to participate in outpatient substance abuse treatment and to avoid using substances after discharged from treatment. Patient remains able to verbalize connection between substance abuse and psychiatric symptom exacerbation. Poor insight medication compliance post discharge from inpatient treatment was also reviewed with patient. Patient reports improved sleep, per EMR slept 5 hours last night, denies challenges to appetite, concentration or focus, or energy level. Of note: Treatment update prevented patient's father on 05/22/16 verified patient 's uncle committed suicide 2 days ago, denied concerns related to patient's response to family members . Patient's father stated he has no concerns regarding patient's discharge, was informed of recommendation for injectable medication once patient's tolerance to by mouth medications has been established , was provided with timeframe for injection due date. Application Consultant also verbalized patient's father that is important patient abstain from substance use or abuse and that outpatient substance abuse treatment was being recommended in addition to psychotherapy and medication management. Of Note: Treatment update provides patient's father on 05/20/16 who indicated they're trying to arrange housing with [facility]. Patient's father indicated that father and girlfriend live approximately 5 miles from [address] patient will be living, added father intends to give patient his medication daily and make sure he takes them, informs creative services writer he does feel that patient will use drugs or alcohol in the apartment and added he does not have concerns about patient's discharge to [facility] supportive apartment. Of note: Call placed father on 05/17/16 to provide treatment update. Patient's father expressed agreement with treatment trajectory and denied having concerns regarding patient's response to medication. Patient's father verified that discharge to home is no longer an option for patient. Of Note: Call placed to father on 05/14/16 who indicated patient did not miss Abilify doses after discharge, did see primary care provider who increased his trazodone for sleep, indicates patient was sleeping approximately an hour at home and would spend a time at night while awake pacing and listening to music. Patient's father stated patient and others girlfriend did not have altercation per say, but the patient was "scary and in her space." Patient's father stated it is "up in the air" as to whether patient may return to the home noting "I push to get him out too fast last time he needs to stay in the hospital and be stabilized before will know if he can come home." In addition, patient's father indicates patient expressed suicidal ideation to a friend and while in the emergency room, notes patient recently had friend hanging himself and was last week. VITAL SIGNS: See below. NEW TEST RESULTS: No new results. Labs on admission indicated anomalies, on recheck elevated were neut %, mono %, Eos %, MCV and glucose, low were Lymph %, anion gap, calcium, and total protein, PA monitoring. 04/24/[address] ELEVATION, PROBABLY EARLY REPOLARIZATION NO PRIOR TRACING IN THE SYSTEM UDS negative on admission CURRENT MEDICATIONS: See below. MENTAL STATUS EXAMINATION: General: Generally cooperative with less intense, or spontaneous eye contact, adequate personal hygiene, dressed in personal clothing, ambulates with steady gait, appears stated age Speech: Of normal rate, rhythm, volume, coherent, spontaneous Thought processes: No tangentiality or circumstantiality Thought content: Rational, logical Abstract reasoning, and computation: [place] thinking Description of associations: Intact Description of abnormal or psychotic thoughts: The patient denies any current suicidal or homicidal ideation, exhibits no delusional thinking, does not appear to be responding to internal stimuli, denies thoughts of a violent nature and denies obsessions. Judgment: Adequate, as improved during treatment Insight: Adequate, has improved during treatment Orientation: Alert and oriented 3 Recent and remote memory: Intact Attention span and concentration: Intact Fund of knowledge: Adequate Mood: "I feel better, the medication is working well." Patient denies depression and anxiety, no mood lability noted Affect: Mild constriction of brightens frequently and appropriately, congruent with affect DIAGNOSES: Unspecified psychotic disorder with history of bipolar disorder with mixed features substance-induced versus noncompliance, polysubstance use disorder, rule out PTSD ASSESSMENT: Patient is observed to be walking hallways, engaging with select peers, is attending groups, remains in behavioral control, is pleasant and cooperative. Patient displays awareness and respect for personal boundaries, is engaging appropriately with staff and peers. Patient indicates current Abilify dose is effective, states he feels his thinking is clear and he denies medication side effects, exhibits no tangentiality or delusional thinking, reiterates today he is agreeable to injectable medication in outpatient environment once stabilized on current dose of Abilify. Patient continues to utilize hydroxyzine PRN intermittently for symptoms of anxiety/agitation, also continues to take trazodone for sleep. Will continue to monitor patient's response to medication and monitor for side effects. Will also evaluate patient' s safety and will begin to prepare patient for discharge. Patient verbalizes awareness that he will go to [facility] supportive housing (has refused ER and independent living level), remains in agreement with father assisting with medications and ensuring the patient is being medication compliant. Patient has been strongly encouraged to participate in outpatient substance abuse treatment and today verbalizes willingness, states he will also attend psychotherapy and medication management at [facility]. Referral for TLS and case management services has been initiated, patient has [facility] case management and [facility] services in place. Addendum: Post clinical consultation, creative services writer spoke with patient and called patient's father to provide information and make recommendation for injectable medication administration prior to discharge and to discuss potential risks, benefits, and medication side effects. Patient and father agree that, due to history of adverse side effects experienced with previous medication trials and length of time on medication at current dose, they would prefer to have patient discharge on po medications and will pursue injectable medication with follow- up outpatient provider. MANAGEMENT PLAN: Continue Abilify 25 mg po q hs, continue trazodone 100 mg po q hs, and hydroxyzine 50 mg po q 6 hours PRN anxiety/agitation Maintain safety precautions Patient to attend groups and participate in unit programming to develop coping strategies Engage patient in discharge planning process and arrange meeting with reports system to ensure safe discharge planning when appropriate Patient to follow up with PCM upon discharge TIME SPENT: 35 minutes Vital Signs Vital Signs Date Time Temp Pulse Resp B/P Pulse Ox O2 Delivery O2 Flow Rate FiO2 05/22/16 06:32 97.8 106 16 139/79 05/18/16 18:00 Room Air Current Medications Current Medications Acetaminophen (Tylenol Tab) 650 mg Q6HP PRN PO HEADACHE or DISCOMFORT Last administered on 05/21/16 20:20; Start 05/12/16 at 16:30; Stop 06/11/16 at 16:29 Al Hydrox/Mg Hydrox/Simethicone (Mylanta) 30 ml Q4HP PRN PO HEARTBURN/ INDIGESTION Last administered on 05/14/16 20:26; Start 05/12/16 at 16:30; Stop at 16:29 Aripiprazole (AbiLIFY) 10 mg QHS PO Last administered on 05/13/16 20:41; Start 05/12/16 at 21:00; Stop 05/14/16 at 18:46; Status DC Aripiprazole (AbiLIFY) 15 mg QHS PO Last administered on 05/16/16 20:19; Start 05/14/16 at 21:00; Stop 05/17/16 at 15:40; Status DC Aripiprazole (AbiLIFY) 20 mg QHS PO Last administered on 4/9/17at 20:01; Start 05/17/16 at 21:00; Stop 05/20/16 at 17:24; Status DC Aripiprazole (AbiLIFY) 25 mg QHS PO Last administered on 05/21/16 20:20; Start 05/20/16 at 21:00; Stop 06/19/16 at 20:59 Home Med (Med Rec Complete!) ASDIRECTED XX ; Start 05/12/16 at 13:15; Stop at 13:15; Status DC Hydroxyzine HCl (Atarax) 50 mg Q6HP PRN PO ANXIETY/AGITATION Last administered on 05/20/16 16:11; Start 05/12/16 at 16:30; Stop 06/11/16 at 16:29 Ibuprofen (Advil) 400 mg Q6HP PRN PO PAIN Last administered on 05/21/16 17:46 ; Start 05/18/16 at 11:30; Stop 06/17/16 at 11:29 Magnesium Hydroxide (Milk Of Magnesia) 30 ml DAILYPRN PRN PO CONSTIPATION Last administered on 05/21/16 10:04; Start 05/12/16 at 16:30; Stop 06/11/16 at 16:29 Nicotine (Nicoderm Cq 21mg) 1 patch DAILY TD Last administered on 05/22/16 08: 10; Start 05/12/16 at 18:00; Stop 06/11/16 at 17:59 Simethicone (Mylicon) 80 mg Q6HP PRN PO GAS PAIN Last administered on 05/16/16 22:43; Start 05/15/16 at 14:30; Stop 06/14/16 at 14:29 Trazodone HCl (Desyrel) 100 mg QHS PO Last administered on 05/21/16 21:42; Start 05/12/16 at 21:00; Stop 06/11/16 at 20:59 Allergies Coded Allergies: Risperidone (Verified Adverse Reaction, Intermediate, gynecomastia, 05/13/16 ) Valproic Acid (Verified Adverse Reaction, Unknown, depression, 05/13/16) Dodie Fontaine May 22, 2016 13:21
[2016-05-22] MEDS: ARIPiprazole 10 MG TAB PO SCH (20:00)
[2016-05-22] MEDS: IBUPROFEN 400 MG TAB PO PRN (20:23)
[2016-05-22] MEDS: traZODone 100 MG TAB PO SCH (21:20)
[2016-05-23] MEDS: ACETAMINOPHEN TAB 650MG DOSE (2X325MG) PO PRN (05:56)
[2016-05-23 06:27] VITALS: BP 141/75
[2016-05-23] MEDS: NICOTINE 21MG/24HR 1 EA TRANSDERMAL TD SCH (08:08)
[2016-05-23] MEDS ORDERED: TRAZ10TA PO (09:33)
[2016-05-23] MEDS ORDERED: ARIP10TAB PO (09:33)
[2016-05-23] MEDS ORDERED: HYDRO50TAB PO (09:34)
[2016-05-23] MEDS: IBUPROFEN 400 MG TAB PO PRN (09:44)
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
== END 2016-05-23 12:10 | disposition home or self-care (01) | DRG 753 ==
LOC: EDBD 11:11 → M ED 12:43 → M ED INP 13:57 → M PSY 14:53
PROVIDERS: ADMIT Psychiatry & Neurology Psychiatry; ATTEND Psychiatry & Neurology Psychiatry
DX: F31.60 Bipolar disorder, current episode mixed, unspecified (principal); Z91.14 Patient's other noncompliance with medication regimen; F29 Unspecified psychosis not due to a substance or known physiological condition; R20.2 Paresthesia of skin; F43.10 Post-traumatic stress disorder, unspecified; K52.9 Noninfective gastroenteritis and colitis, unspecified; F17.210 Nicotine dependence, cigarettes, uncomplicated; F19.10 Other psychoactive substance abuse, uncomplicated; Z79.899 Other long term (current) drug therapy; Z88.8 Allergy status to other drugs, medicaments and biological substances

== ENCOUNTER 2022-03-08 11:27 | Inpatient (IN) | payer OTHER ==
[~2022-03-08 11:27] MED LIST changes: -ARIP10TAB PO; +ARIP1TAB PO; +HYDR1TAB33 PO; -HYDRO50TAB PO; -TRAZ10TA PO; +TRAZ1TAB12 PO
[2022-03-08] MEDS ORDERED: LORazepam 2 MG TAB PO STA (11:41)
[2022-03-08] MEDS ORDERED: OLANZapine ORAL DISINTEGRATING TAB 5MG PO ONE (11:45)
[2022-03-08 12:07] LABS: HEMATOCRIT 48.9 % (42.0-52.0); HEMOGLOBIN 17.5 g/dl (13.5-17.5); MEAN CORPUSCULAR HGB CONC 35.8 g/dl (32.0-36.5); MEAN CORPUSCULAR VOLUME 89.4 fl (80.0-96.0); PLATELET COUNT, AUTOMATED 305 10^3/uL (150-450); RED BLOOD COUNT 5.47 10^6/uL (4.30-6.10); WHITE BLOOD COUNT 7.7 10^3/uL (4.0-10.0)
[2022-03-08 12:25] LABS: ETHYL ALCOHOL (ETHANOL) 0.005 % (0.000-0.010)
[2022-03-08 12:26] LABS: ACETAMINOPHEN LEVEL < 2.0 UG/ML (10.0-20.0); BILIRUBIN,DIRECT 0.4 MG/DL (<0.4); SALICYLATE LEVEL < 3.0 MG/DL (<30)
[2022-03-08 12:27] LABS: ALBUMIN 4.3 G/DL (3.2-5.2); ALKALINE PHOSPHATASE 98 U/L (46-116); ALT/SGPT 58 U/L (7.0-40); AST/SGOT 61 U/L (<34); BILIRUBIN,TOTAL 1.1 MG/DL (0.3-1.2); BLOOD UREA NITROGEN 12 MG/DL (9-23); CALCIUM LEVEL 8.5 MG/DL (8.5-10.1); CARBON DIOXIDE LEVEL 25 MMOL/L (20-31); CHLORIDE LEVEL 103 MMOL/L (98-107); CREATININE FOR GFR 0.97 MG/DL (0.70-1.30); GLOMERULAR FILTRATION RATE > 60.0 (>60); GLUCOSE, FASTING 126 MG/DL (60-100); POTASSIUM SERUM 4.1 MMOL/L (3.5-5.1); SODIUM LEVEL 136 MMOL/L (136-145); TOTAL PROTEIN 7.4 G/DL (5.7-8.2)
[2022-03-08] MEDS ORDERED: LORazepam 2 MG/ML VIAL IM STA ×2 (12:28→21:51)
[2022-03-08 12:29] LABS: THYROID STIMULATING HORMONE 3.307 uIU/ML (0.55-4.78)
[2022-03-08] MEDS ORDERED: OLANZapine INTRAMUSCULAR 10MG VIAL IM ONE ×2 (12:30→22:00)
[2022-03-08] MEDS ORDERED: OLANZapine ORAL DISINTEGRATING TAB 5MG PO PRN (23:40)
[2022-03-08] MEDS ORDERED: MOM 30ML SUSPENSION UDC PO PRN (23:40)
[2022-03-08] MEDS ORDERED: traZODone 50 MG TAB PO PRN (23:40)
[2022-03-08] MEDS ORDERED: LORazepam 1 MG TAB PO PRN (23:40)
[2022-03-08] MEDS ORDERED: IBUPROFEN 400MG TAB PO PRN (23:40)
[2022-03-08] MEDS ORDERED: MAALOX 30 ML SUSP *UDC PO PRN (23:40)
[2022-03-08] MEDS ORDERED: ACETAMINOPHEN TAB 650MG DOSE (2X325MG) PO PRN (23:40)
[2022-03-09] MEDS ORDERED: BUPR1FIL SL (00:02)
[2022-03-09] MEDS ORDERED: ARIP1TAB43 PO (00:02)
[2022-03-09] MEDS ORDERED: BUPR300T92 PO (00:02)
[2022-03-09] MEDS ORDERED: HYDR-3363 PO (00:02)
[2022-03-09] MEDS ORDERED: med rec comment (00:07)
[2022-03-09] MEDS ORDERED: HOME MED LIST COMPLETE! XX SCH (00:10)
[2022-03-09] MEDS ORDERED: HALOPERIDOL 5MG/ML 1ML VIAL IM STA (03:51)
[2022-03-09] MEDS ORDERED: LORazepam 2 MG/ML VIAL IM STA (03:51)
[2022-03-09] MEDS ORDERED: diphenhydrAMINE 50MG/ML VIAL IM ONE (03:55)
[2022-03-09] MEDS ORDERED: MAALOX 30 ML SUSP *UDC PO PRN (12:00)
[2022-03-09] MEDS ORDERED: OLANZapine ORAL DISINTEGRATING TAB 5MG PO PRN (12:00)
[2022-03-09] MEDS ORDERED: MOM 30ML SUSPENSION UDC PO PRN (12:00)
[2022-03-09] MEDS ORDERED: ACETAMINOPHEN TAB 650MG DOSE (2X325MG) PO PRN (12:00)
[2022-03-09] MEDS ORDERED: LORazepam 2 MG TAB PO PRN (12:00)
[2022-03-09] MEDS: NICOTINE 21MG/24HR 1 EA TRANSDERMAL TD SCH (14:50)
[2022-03-09] MEDS: buPROPion **XL** TABLET 150MG (WELLBUTRIN XL) PO SCH (15:08)
[2022-03-09] MEDS: BUPRENORPHINE/NALOXONE 8-2MG SUBLINGUAL TABLET(SUBOXONE) SL SCH (15:08)
[2022-03-09] MEDS: ARIPiprazole 10 MG TAB PO SCH (20:14)
[2022-03-09] MEDS ORDERED: diphenhydrAMINE 50MG CAP PO ONE ×2 (20:30→23:10)
[2022-03-09] MEDS ORDERED: LORazepam 2 MG TAB PO ONE ×2 (20:30→23:10)
[2022-03-10] MEDS ORDERED: chlorproMAZINE INJ 50MG/2ML AMP IM STA (06:00)
[2022-03-10] MEDS ORDERED: diphenhydrAMINE 50MG/ML VIAL IM STA (06:00)
[2022-03-10] MEDS ORDERED: LORazepam 2 MG/ML VIAL IM STA (06:00)
[2022-03-10] MEDS: BUPRENORPHINE/NALOXONE 8-2MG SUBLINGUAL TABLET(SUBOXONE) SL SCH (08:24)
[2022-03-10] MEDS: NICOTINE 21MG/24HR 1 EA TRANSDERMAL TD SCH (08:36)
[2022-03-10] MEDS ORDERED: OLANZapine ORAL DISINTEGRATING TAB 5MG PO PRN (14:30)
[2022-03-10 16:15] LABS: HEPATITIS B SURFACE ANTIGEN NEGATIVE (NEGATIVE)
[2022-03-10] MEDS: buPROPion **XL** TABLET 150MG (WELLBUTRIN XL) PO SCH (16:21)
[2022-03-10 16:36] LABS: HEPATITIS B CORE ANTIBODY IGM NEGATIVE (NEGATIVE)
[2022-03-10 20:29] VITALS: BP 140/82
[2022-03-10] MEDS: ARIPiprazole 10 MG TAB PO SCH (22:16)
[2022-03-10] MEDS: SODIUM CHLORIDE NASAL 0.65% SPRAY BTL (OCEAN) PRN (23:03)
[2022-03-10] MEDS: traZODone 50 MG TAB PO PRN (23:26)
[2022-03-11 06:09] VITALS: BP 139/70
[2022-03-11] MEDS: NICOTINE 21MG/24HR 1 EA TRANSDERMAL TD SCH (08:02)
[2022-03-11] MEDS: buPROPion **XL** TABLET 150MG (WELLBUTRIN XL) PO SCH (08:02)
[2022-03-11] MEDS: BUPRENORPHINE/NALOXONE 8-2MG SUBLINGUAL TABLET(SUBOXONE) SL SCH ×2 (09:52→16:20)
[2022-03-11] MEDS: SODIUM CHLORIDE NASAL 0.65% SPRAY BTL (OCEAN) PRN ×2 (10:51→18:08)
[2022-03-11 17:27] VITALS: BP 130/71
[2022-03-11] MEDS: ARIPiprazole 10 MG TAB PO SCH (20:46)
[2022-03-11] MEDS: traZODone 50 MG TAB PO PRN (22:19)
[2022-03-12] MEDS: SODIUM CHLORIDE NASAL 0.65% SPRAY BTL (OCEAN) PRN ×2 (00:44→18:55)
[2022-03-12 06:21] VITALS: BP 119/58
[2022-03-12] MEDS: BUPRENORPHINE/NALOXONE 8-2MG SUBLINGUAL TABLET(SUBOXONE) SL SCH ×2 (07:56→15:41)
[2022-03-12] MEDS: NICOTINE 21MG/24HR 1 EA TRANSDERMAL TD SCH (07:57)
[2022-03-12] MEDS: buPROPion **XL** TABLET 150MG (WELLBUTRIN XL) PO SCH (07:57)
[2022-03-12 16:42] VITALS: BP 127/80
[2022-03-12] MEDS: traZODone 50 MG TAB PO PRN (20:22)
[2022-03-12] MEDS: ARIPiprazole 10 MG TAB PO SCH (20:22)
[2022-03-13] MEDS: SODIUM CHLORIDE NASAL 0.65% SPRAY BTL (OCEAN) PRN (03:20)
[2022-03-13 06:36] VITALS: BP 144/89
[2022-03-13] MEDS: BUPRENORPHINE/NALOXONE 8-2MG SUBLINGUAL TABLET(SUBOXONE) SL SCH (07:40)
[2022-03-13] MEDS: NICOTINE 21MG/24HR 1 EA TRANSDERMAL TD SCH (07:40)
[2022-03-13] MEDS: buPROPion **XL** TABLET 150MG (WELLBUTRIN XL) PO SCH (07:40)
[2022-03-13] MEDS ORDERED: LACTIC ACID 12% LOTION 225 GM BTL TOP SCH (09:00)
== END 2022-03-13 12:40 | disposition home or self-care (01) | DRG 753 ==
LOC: M ED 11:27 → M ED INP 23:38 → UNDOADMIN 23:38 → CANBEDREQ 03-09 08:06 → M ED INP 03-09 12:00 → M PSY 03-09 13:05
PROVIDERS: ADMIT Psychiatry & Neurology Psychiatry; ATTEND Psychiatry & Neurology Psychiatry
DX: F31.9 Bipolar disorder, unspecified (principal); F60.89 Other specific personality disorders; F17.210 Nicotine dependence, cigarettes, uncomplicated; U07.1 COVID-19; R74.01 Elevation of levels of liver transaminase levels; Z79.899 Other long term (current) drug therapy; Z88.8 Allergy status to other drugs, medicaments and biological substances; Z78.1 Physical restraint status; Z91.14 Patient's other noncompliance with medication regimen; F19.94 Other psychoactive substance use, unspecified with psychoactive substance-induced mood disorder; L84 Corns and callosities

== ENCOUNTER 2022-03-17 12:00 | Inpatient (IN) | payer OTHER ==
[~2022-03-17] VITALS: Ht 170.2 cm; Wt 91.8 kg
[~2022-03-17 12:00] MED LIST changes: +ARIP1TAB43 PO; +BUPR1FIL SL; +BUPR300T92 PO; +HYDR-3363 PO; +med rec comment
[2022-03-17] MEDS ORDERED: ARIPiprazole 10 MG TAB PO ONE (12:35)
[2022-03-17] MEDS ORDERED: LORazepam 2 MG TAB PO ONE (13:00)
[2022-03-17 13:04] LABS: HEMATOCRIT 45.8 % (42.0-52.0); MEAN CORPUSCULAR HEMOGLOBIN 31.6 pg (27.0-33.0); MEAN CORPUSCULAR HGB CONC 34.9 g/dl (32.0-36.5); MEAN CORPUSCULAR VOLUME 90.3 fl (80.0-96.0); PLATELET COUNT, AUTOMATED 397 10^3/uL (150-450); RED BLOOD COUNT 5.07 10^6/uL (4.30-6.10); WHITE BLOOD COUNT 8.6 10^3/uL (4.0-10.0)
[2022-03-17 13:33] LABS: ETHYL ALCOHOL (ETHANOL) 0.003 % (0.000-0.010)
[2022-03-17 13:34] LABS: SALICYLATE LEVEL < 3.0 MG/DL (<30)
[2022-03-17 13:35] LABS: ACETAMINOPHEN LEVEL < 2.0 UG/ML (10.0-20.0); ALBUMIN 3.9 G/DL (3.2-5.2); ALKALINE PHOSPHATASE 107 U/L (46-116); ALT/SGPT 43 U/L (7.0-40); AST/SGOT 41 U/L (<34); BILIRUBIN,DIRECT 0.2 MG/DL (<0.4); BILIRUBIN,TOTAL 0.5 MG/DL (0.3-1.2); BLOOD UREA NITROGEN 16 MG/DL (9-23); CALCIUM LEVEL 8.4 MG/DL (8.5-10.1); CARBON DIOXIDE LEVEL 23 MMOL/L (20-31); CHLORIDE LEVEL 105 MMOL/L (98-107); CREATININE FOR GFR 0.99 MG/DL (0.70-1.30); GLOMERULAR FILTRATION RATE > 60.0 (>60); GLUCOSE, FASTING 117 MG/DL (60-100); POTASSIUM SERUM 4.1 MMOL/L (3.5-5.1); SODIUM LEVEL 138 MMOL/L (136-145); TOTAL PROTEIN 6.9 G/DL (5.7-8.2)
[2022-03-17 13:37] LABS: THYROID STIMULATING HORMONE 3.462 uIU/ML (0.55-4.78)
[2022-03-17] MEDS: OLANZapine ORAL DISINTEGRATING TAB 5MG PO ONE (16:25)
[2022-03-17] MEDS ORDERED: LORazepam 2 MG/ML 1ML VIAL IM STA (16:42)
[2022-03-17] MEDS ORDERED: HALOPERIDOL 5MG/ML 1ML VIAL IM ONE (16:45)
[2022-03-17] MEDS ORDERED: diphenhydrAMINE 50MG/ML VIAL IM ONE (16:45)
[2022-03-17] MEDS ORDERED: OLANZapine 10 MG TAB PO ONE (21:15)
[2022-03-17] MEDS ORDERED: BUPR150T12 PO (23:34)
[2022-03-17] MEDS ORDERED: HOME MED LIST COMPLETE! XX SCH (23:35)
[2022-03-17] MEDS ORDERED: diphenhydrAMINE 50MG/ML VIAL IM STA (23:39)
[2022-03-17] MEDS ORDERED: HALOPERIDOL 5MG/ML 1ML VIAL IM STA (23:39)
[2022-03-18] MEDS ORDERED: LORazepam 2 MG/ML 1ML VIAL IM STA ×3 (05:22→19:23)
[2022-03-18] MEDS ORDERED: diphenhydrAMINE 50MG/ML VIAL IV STA (05:22)
[2022-03-18] MEDS ORDERED: HALOPERIDOL 5MG/ML 1ML VIAL IM STA ×2 (05:22→19:23)
[2022-03-18] MEDS ORDERED: diphenhydrAMINE 50MG/ML VIAL IM ONE (12:00)
[2022-03-18] MEDS ORDERED: HALOPERIDOL 5MG/ML 1ML VIAL IM ONE (12:00)
[2022-03-18] MEDS ORDERED: diphenhydrAMINE 50MG/ML VIAL IM STA (19:23)
[2022-03-18] MEDS ORDERED: BUPRENORPHINE/NALOXONE 8-2MG SUBLINGUAL TABLET(SUBOXONE) SL SCH (21:00)
[2022-03-18] MEDS ORDERED: ARIPiprazole 10 MG TAB PO SCH (21:00)
[2022-03-18 22:13] LABS: AMPHETAMINES LEVEL URINE NEGATIVE (NEGATIVE); METHADONE URINE NEGATIVE (NEGATIVE); OPIATES URINE NEGATIVE (NEGATIVE); PHENCYCLIDINE URINE NEGATIVE (NEGATIVE)
[2022-03-18 22:14] LABS: BARBITURATES URINE NEGATIVE (NEGATIVE); BENZODIAZEPINES URINE NEGATIVE (NEGATIVE); COCAINE METABOLITE URINE NEGATIVE (NEGATIVE)
[2022-03-18 22:15] LABS: CANNABINOIDS URINE POSITIVE (NEGATIVE)
[2022-03-18] MEDS ORDERED: traZODone 50 MG TAB PO PRN (23:00)
[2022-03-19 00:32] VITALS: BP 113/69
[2022-03-19] MEDS ORDERED: BUPRENORPHINE/NALOXONE 8-2MG SUBLINGUAL TABLET(SUBOXONE) SL ONE (01:00)
[2022-03-19] MEDS: NICOTINE 21MG/24HR 1 EA TRANSDERMAL TD PRN (01:51)
[2022-03-19] MEDS: SODIUM CHLORIDE NASAL 0.65% SPRAY BTL (OCEAN) PRN ×2 (06:23→15:11)
[2022-03-19] MEDS: BUPRENORPHINE/NALOXONE 8-2MG SUBLINGUAL TABLET(SUBOXONE) SL SCH ×2 (08:02→16:20)
[2022-03-19] MEDS: MOM 30ML SUSPENSION UDC PO PRN (08:11)
[2022-03-19] MEDS ORDERED: buPROPion **XL** TABLET 150MG (WELLBUTRIN XL) PO SCH (09:00)
[2022-03-19] MEDS ORDERED: NICOTINE 21MG/24HR 1 EA TRANSDERMAL TD SCH (09:00)
[2022-03-19] MEDS: LORazepam 1 MG TAB PO PRN (09:35)
[2022-03-19] MEDS ORDERED: PILL CUTTER 1 EACH XX PRN (11:40)
[2022-03-19 12:29] LABS: HEPATITIS B SURFACE ANTIGEN NEGATIVE (NEGATIVE)
[2022-03-19 12:49] LABS: HEPATITIS C VIRUS ABY INDEX < 0.0 INDEX (<0.8)
[2022-03-19 12:50] LABS: HEPATITIS B CORE ANTIBODY IGM NEGATIVE (NEGATIVE)
[2022-03-19] MEDS: ACETAMINOPHEN TAB 650MG DOSE (2X325MG) PO PRN ×2 (13:01→19:30)
[2022-03-19 18:15] VITALS: BP 121/71
[2022-03-19] MEDS: ARIPiprazole 10 MG TAB PO SCH (20:13)
[2022-03-19] MEDS: diphenhydrAMINE 25MG CAP PO PRN (22:41)
[2022-03-20] MEDS: NICOTINE 21MG/24HR 1 EA TRANSDERMAL TD PRN ×2 (03:26→15:19)
[2022-03-20 06:17] VITALS: BP 110/80
[2022-03-20 07:18] LABS: CHOLESTEROL RISK RATIO 4.26 (<5); HDL CHOLESTEROL 31.9 MG/DL (>40); LDL CHOLESTEROL 85.3 MG/DL (<100)
[2022-03-20] MEDS: BUPRENORPHINE/NALOXONE 8-2MG SUBLINGUAL TABLET(SUBOXONE) SL SCH ×2 (08:23→15:18)
[2022-03-20] MEDS: ACETAMINOPHEN TAB 650MG DOSE (2X325MG) PO PRN ×2 (13:57→21:53)
[2022-03-20 19:14] VITALS: BP 146/86
[2022-03-20] MEDS: traZODone 100 MG TAB PO PRN (19:53)
[2022-03-20] MEDS: ARIPiprazole 10 MG TAB PO SCH (19:53)
[2022-03-20] MEDS: diphenhydrAMINE 25MG CAP PO PRN (20:07)
[2022-03-21] MEDS: SODIUM CHLORIDE NASAL 0.65% SPRAY BTL (OCEAN) PRN ×2 (02:25→15:02)
[2022-03-21] MEDS: ACETAMINOPHEN TAB 650MG DOSE (2X325MG) PO PRN ×3 (04:48→20:05)
[2022-03-21 06:45] VITALS: BP 141/91
[2022-03-21] MEDS: BUPRENORPHINE/NALOXONE 8-2MG SUBLINGUAL TABLET(SUBOXONE) SL SCH ×2 (07:33→15:02)
[2022-03-21] MEDS: NICOTINE 21MG/24HR 1 EA TRANSDERMAL TD PRN (07:34)
[2022-03-21] MEDS: MOM 30ML SUSPENSION UDC PO PRN (14:29)
[2022-03-21 18:03] VITALS: BP 150/70
[2022-03-21] MEDS: ARIPiprazole 10 MG TAB PO SCH (20:05)
[2022-03-21] MEDS: traZODone 100 MG TAB PO PRN (20:05)
[2022-03-21] MEDS ORDERED: QUEtiapine FUMARATE 100 MG TAB PO SCH (21:00)
[2022-03-21] MEDS ORDERED: QUEtiapine FUMARATE 50MG TAB PO SCH (21:00)
[2022-03-22] MEDS: LORazepam 1 MG TAB PO PRN ×2 (02:22→10:42)
[2022-03-22] MEDS: diphenhydrAMINE 25MG CAP PO PRN (02:23)
[2022-03-22] MEDS: BUPRENORPHINE/NALOXONE 8-2MG SUBLINGUAL TABLET(SUBOXONE) SL SCH ×2 (08:25→16:05)
[2022-03-22] MEDS: NICOTINE 21MG/24HR 1 EA TRANSDERMAL TD PRN (08:26)
[2022-03-22 09:49] LABS: ALBUMIN 3.5 G/DL (3.2-5.2); BILIRUBIN,DIRECT 0.2 MG/DL (<0.4); BILIRUBIN,TOTAL 0.5 MG/DL (0.3-1.2); TOTAL PROTEIN 6.3 G/DL (5.7-8.2)
[2022-03-22] MEDS: SODIUM CHLORIDE NASAL 0.65% SPRAY BTL (OCEAN) PRN (10:57)
[2022-03-22 18:37] VITALS: BP 135/82
[2022-03-22] MEDS: OLANZapine 10 MG TAB PO SCH (20:10)
[2022-03-22] MEDS: ARIPiprazole 10 MG TAB PO SCH (20:10)
[2022-03-22] MEDS: traZODone 100 MG TAB PO PRN (20:10)
[2022-03-22] MEDS ORDERED: QUEtiapine FUMARATE 200 MG TAB PO SCH (21:00)
[2022-03-23] MEDS: ACETAMINOPHEN TAB 650MG DOSE (2X325MG) PO PRN ×2 (03:00→15:14)
[2022-03-23 06:42] VITALS: BP 132/75
[2022-03-23] MEDS: SODIUM CHLORIDE NASAL 0.65% SPRAY BTL (OCEAN) PRN ×2 (06:43→12:39)
[2022-03-23] MEDS: NICOTINE 21MG/24HR 1 EA TRANSDERMAL TD PRN (07:49)
[2022-03-23] MEDS: BUPRENORPHINE/NALOXONE 8-2MG SUBLINGUAL TABLET(SUBOXONE) SL SCH ×2 (08:28→15:13)
[2022-03-23] MEDS: LORazepam 2 MG TAB PO PRN (11:05)
[2022-03-23] MEDS: MOM 30ML SUSPENSION UDC PO PRN (15:29)
[2022-03-23 18:29] VITALS: BP 142/90
[2022-03-23] MEDS: traZODone 100 MG TAB PO PRN (19:59)
[2022-03-23] MEDS: OLANZapine 10 MG TAB PO SCH (20:00)
[2022-03-23] MEDS: ARIPiprazole 10 MG TAB PO SCH (20:00)
[2022-03-23] MEDS: diphenhydrAMINE 25MG CAP PO PRN ×2 (20:00)
[2022-03-24] MEDS: SODIUM CHLORIDE NASAL 0.65% SPRAY BTL (OCEAN) PRN (00:59)
[2022-03-24] MEDS: LORazepam 2 MG TAB PO PRN ×2 (01:01→19:34)
[2022-03-24] MEDS: ACETAMINOPHEN TAB 650MG DOSE (2X325MG) PO PRN ×2 (01:02→17:11)
[2022-03-24 06:04] VITALS: BP 126/76
[2022-03-24] MEDS: NICOTINE 21MG/24HR 1 EA TRANSDERMAL TD PRN (08:03)
[2022-03-24] MEDS: BUPRENORPHINE/NALOXONE 8-2MG SUBLINGUAL TABLET(SUBOXONE) SL SCH ×2 (08:03→15:37)
[2022-03-24] MEDS: diphenhydrAMINE 25MG CAP PO PRN (11:58)
[2022-03-24 16:24] VITALS: BP 154/87
[2022-03-24] MEDS: ARIPiprazole 10 MG TAB PO SCH (20:38)
[2022-03-24] MEDS: OLANZapine 10 MG TAB PO SCH (20:38)
[2022-03-25 06:31] VITALS: BP 126/79
[2022-03-25] MEDS: SODIUM CHLORIDE NASAL 0.65% SPRAY BTL (OCEAN) PRN ×2 (06:47→19:42)
[2022-03-25] MEDS: BUPRENORPHINE/NALOXONE 8-2MG SUBLINGUAL TABLET(SUBOXONE) SL SCH ×2 (08:10→16:09)
[2022-03-25] MEDS: NICOTINE 21MG/24HR 1 EA TRANSDERMAL TD PRN (08:10)
[2022-03-25] MEDS: ACETAMINOPHEN TAB 650MG DOSE (2X325MG) PO PRN (13:13)
[2022-03-25 17:08] VITALS: BP 134/83
[2022-03-25] MEDS: diphenhydrAMINE 25MG CAP PO PRN (18:00)
[2022-03-25] MEDS: OLANZapine 10 MG TAB PO SCH (20:09)
[2022-03-25] MEDS: traZODone 100 MG TAB PO PRN (20:09)
[2022-03-25] MEDS: ARIPiprazole 10 MG TAB PO SCH (20:09)
[2022-03-25] MEDS: LORazepam 2 MG TAB PO PRN (22:07)
[2022-03-26] MEDS: ACETAMINOPHEN TAB 650MG DOSE (2X325MG) PO PRN (03:22)
[2022-03-26] MEDS: BUPRENORPHINE/NALOXONE 8-2MG SUBLINGUAL TABLET(SUBOXONE) SL SCH ×2 (08:10→15:36)
[2022-03-26] MEDS: LORazepam 2 MG TAB PO PRN ×3 (11:11→20:49)
[2022-03-26] MEDS ORDERED: LORazepam 1 MG TAB PO ONE (12:50)
[2022-03-26] MEDS: diphenhydrAMINE 25MG CAP PO PRN (12:56)
[2022-03-26] MEDS: PALIPERIDONE 3MG ER TAB (INVEGA) PO SCH (13:17)
[2022-03-26] MEDS: DIVALPROEX 500MG *ER* TAB PO SCH (13:20)
[2022-03-26] MEDS ORDERED: diphenhydrAMINE 50MG CAP PO PRN (15:00)
[2022-03-26] MEDS: hydrOXYzine 50 MG TAB PO PRN (16:34)
[2022-03-26] MEDS: traZODone 100 MG TAB PO PRN (20:45)
[2022-03-26] MEDS ORDERED: ARIPiprazole 10 MG TAB PO SCH (21:00)
[2022-03-26] MEDS: diphenhydrAMINE 50MG CAP PO PRN (21:18)
[2022-03-27] MEDS: LORazepam 2 MG TAB PO PRN (00:54)
[2022-03-27] MEDS ORDERED: LORazepam 2 MG/ML 1ML VIAL IM PRN (02:00)
[2022-03-27] MEDS ORDERED: HALOPERIDOL 5MG/ML 1ML VIAL IM PRN (02:00)
[2022-03-27 06:56] VITALS: BP 134/83
[2022-03-27] MEDS: NICOTINE 21MG/24HR 1 EA TRANSDERMAL TD PRN (07:49)
[2022-03-27] MEDS: DIVALPROEX 500MG *ER* TAB PO SCH (07:56)
[2022-03-27] MEDS: BUPRENORPHINE/NALOXONE 8-2MG SUBLINGUAL TABLET(SUBOXONE) SL SCH ×2 (08:01→15:46)
[2022-03-27] MEDS: PALIPERIDONE 3MG ER TAB (INVEGA) PO SCH ×2 (08:01→20:27)
[2022-03-27] MEDS ORDERED: DIVALPROEX 500MG *ER* TAB PO ONE (08:55)
[2022-03-27] MEDS ORDERED: CARIPRAZINE 1.5MG CAPSULE (VRAYLAR) PO SCH (09:00)
[2022-03-27] MEDS ORDERED: diphenhydrAMINE 50MG CAP PO PRN (12:15)
[2022-03-27 16:16] VITALS: BP 125/71
[2022-03-27] MEDS: diphenhydrAMINE 50MG CAP PO PRN ×2 (17:19→23:26)
[2022-03-27] MEDS: traZODone 100 MG TAB PO PRN (21:15)
[2022-03-27] MEDS: SODIUM CHLORIDE NASAL 0.65% SPRAY BTL (OCEAN) PRN (22:49)
[2022-03-27] MEDS: IBUPROFEN 600MG TAB PO PRN (23:28)
[2022-03-28] MEDS: MAALOX 30 ML SUSP *UDC PO PRN (03:41)
[2022-03-28] MEDS: diphenhydrAMINE 50MG CAP PO PRN ×2 (03:54→21:25)
[2022-03-28] MEDS: OLANZapine ORAL DISINTEGRATING TAB 5MG PO PRN ×3 (03:54→19:26)
[2022-03-28 04:34] VITALS: BP 130/67
[2022-03-28] MEDS: NICOTINE 21MG/24HR 1 EA TRANSDERMAL TD PRN (07:55)
[2022-03-28] MEDS: PALIPERIDONE 3MG ER TAB (INVEGA) PO SCH ×2 (08:17→20:16)
[2022-03-28] MEDS: DIVALPROEX 500MG *ER* TAB PO SCH (08:17)
[2022-03-28] MEDS: BUPRENORPHINE/NALOXONE 8-2MG SUBLINGUAL TABLET(SUBOXONE) SL SCH ×2 (08:24→16:12)
[2022-03-28] MEDS: hydrOXYzine 50 MG TAB PO PRN (13:04)
[2022-03-28] MEDS: IBUPROFEN 600MG TAB PO PRN (16:28)
[2022-03-28 18:52] VITALS: BP 137/75
[2022-03-28] MEDS: traZODone 100 MG TAB PO PRN (20:16)
[2022-03-28] MEDS: OLANZapine 10 MG TAB PO SCH (20:16)
[2022-03-28] MEDS: MOM 30ML SUSPENSION UDC PO PRN (21:49)
[2022-03-29] MEDS: IBUPROFEN 600MG TAB PO PRN (01:01)
[2022-03-29] MEDS: OLANZapine ORAL DISINTEGRATING TAB 5MG PO PRN (02:11)
[2022-03-29] MEDS: diphenhydrAMINE 50MG CAP PO PRN ×2 (02:13→10:46)
[2022-03-29] MEDS: SODIUM CHLORIDE NASAL 0.65% SPRAY BTL (OCEAN) PRN (04:45)
[2022-03-29 06:23] VITALS: BP 123/82
[2022-03-29 07:04] LABS: VALPROIC ACID (DEPAKOTE) 47.6 UG/ML (50.0-100.0)
[2022-03-29 07:08] LABS: ALBUMIN 3.7 G/DL (3.2-5.2); BILIRUBIN,DIRECT 0.2 MG/DL (<0.4); BILIRUBIN,TOTAL 0.7 MG/DL (0.3-1.2); PROLACTIN 5.24 NG/ML (2.1-17.7); TOTAL PROTEIN 7.3 G/DL (5.7-8.2)
[2022-03-29] MEDS: NICOTINE 21MG/24HR 1 EA TRANSDERMAL TD PRN (07:59)
[2022-03-29] MEDS: PALIPERIDONE 3MG ER TAB (INVEGA) PO SCH ×2 (08:01→19:57)
[2022-03-29] MEDS: DIVALPROEX 500MG *ER* TAB PO SCH (08:01)
[2022-03-29] MEDS: BUPRENORPHINE/NALOXONE 8-2MG SUBLINGUAL TABLET(SUBOXONE) SL SCH ×2 (08:01→15:35)
[2022-03-29 16:16] VITALS: BP 138/85
[2022-03-29] MEDS: OLANZapine 10 MG TAB PO SCH (19:57)
[2022-03-29] MEDS: traZODone 100 MG TAB PO PRN (19:57)
[2022-03-29] MEDS ORDERED: DIVALPROEX 250MG *ER* TAB PO SCH (21:00)
[2022-03-29] MEDS ORDERED: diphenhydrAMINE 50MG CAP PO SCH (21:00)
[2022-03-29] MEDS ORDERED: DIVALPROEX 250MG *ER* TAB PO ONE (21:00)
[2022-03-30] MEDS: IBUPROFEN 600MG TAB PO PRN ×2 (04:37→20:05)
[2022-03-30 06:29] VITALS: BP 117/72
[2022-03-30] MEDS: NICOTINE 21MG/24HR 1 EA TRANSDERMAL TD PRN (07:43)
[2022-03-30] MEDS: DIVALPROEX 250MG *ER* TAB PO SCH ×2 (07:43→20:05)
[2022-03-30] MEDS: BUPRENORPHINE/NALOXONE 8-2MG SUBLINGUAL TABLET(SUBOXONE) SL SCH ×2 (07:43→15:45)
[2022-03-30] MEDS: PALIPERIDONE 3MG ER TAB (INVEGA) PO SCH ×2 (07:44→20:04)
[2022-03-30] MEDS: OLANZapine ORAL DISINTEGRATING TAB 5MG PO PRN (07:44)
[2022-03-30] MEDS: diphenhydrAMINE 50MG CAP PO PRN ×2 (11:21→20:04)
[2022-03-30] MEDS: SODIUM CHLORIDE NASAL 0.65% SPRAY BTL (OCEAN) PRN (11:22)
[2022-03-30 16:50] VITALS: BP 129/72
[2022-03-30] MEDS: OLANZapine 10 MG TAB PO SCH (20:04)
[2022-03-30] MEDS: traZODone 100 MG TAB PO PRN (20:04)
[2022-03-31] MEDS: IBUPROFEN 600MG TAB PO PRN (06:08)
[2022-03-31 06:14] VITALS: BP 138/88
[2022-03-31] MEDS: BUPRENORPHINE/NALOXONE 8-2MG SUBLINGUAL TABLET(SUBOXONE) SL SCH ×2 (07:51→15:27)
[2022-03-31] MEDS: NICOTINE 21MG/24HR 1 EA TRANSDERMAL TD PRN (07:51)
[2022-03-31] MEDS: DIVALPROEX 250MG *ER* TAB PO SCH ×2 (07:51→20:02)
[2022-03-31] MEDS: PALIPERIDONE 3MG ER TAB (INVEGA) PO SCH ×2 (07:51→20:03)
[2022-03-31] MEDS: diphenhydrAMINE 50MG CAP PO PRN ×2 (09:11→16:20)
[2022-03-31] MEDS: LACTIC ACID 12% LOTION 225 GM BTL EXT SCH ×2 (12:46→20:03)
[2022-03-31 16:17] VITALS: BP 136/76
[2022-03-31] MEDS: traZODone 100 MG TAB PO PRN (20:02)
[2022-03-31] MEDS: OLANZapine 10 MG TAB PO SCH (20:03)
[2022-04-01 06:33] VITALS: BP 126/70
[2022-04-01] MEDS: diphenhydrAMINE 50MG CAP PO PRN ×2 (06:49→20:26)
[2022-04-01] MEDS: IBUPROFEN 600MG TAB PO PRN ×3 (06:49→22:09)
[2022-04-01] MEDS: LACTIC ACID 12% LOTION 225 GM BTL EXT SCH ×2 (08:02→20:25)
[2022-04-01] MEDS: PALIPERIDONE 3MG ER TAB (INVEGA) PO SCH ×2 (08:02→20:24)
[2022-04-01] MEDS: DIVALPROEX 250MG *ER* TAB PO SCH ×2 (08:02→20:24)
[2022-04-01] MEDS: NICOTINE 21MG/24HR 1 EA TRANSDERMAL TD PRN (08:03)
[2022-04-01] MEDS: BUPRENORPHINE/NALOXONE 8-2MG SUBLINGUAL TABLET(SUBOXONE) SL SCH ×2 (08:21→15:37)
[2022-04-01 17:40] VITALS: BP 140/82
[2022-04-01 20:07] LABS: VALPROIC ACID (DEPAKOTE) 68.5 UG/ML (50.0-100.0)
[2022-04-01] MEDS: OLANZapine 10 MG TAB PO SCH (20:24)
[2022-04-01] MEDS: OLANZapine ORAL DISINTEGRATING TAB 5MG PO PRN (20:25)
[2022-04-02] MEDS: traZODone 100 MG TAB PO PRN ×2 (01:44→20:02)
[2022-04-02] MEDS: diphenhydrAMINE 50MG CAP PO PRN ×2 (01:45→14:30)
[2022-04-02 06:24] VITALS: BP 136/79
[2022-04-02] MEDS: IBUPROFEN 600MG TAB PO PRN ×2 (06:39→16:32)
[2022-04-02] MEDS: DIVALPROEX 250MG *ER* TAB PO SCH ×2 (08:09→20:02)
[2022-04-02] MEDS: NICOTINE 21MG/24HR 1 EA TRANSDERMAL TD PRN (08:09)
[2022-04-02] MEDS: LACTIC ACID 12% LOTION 225 GM BTL EXT SCH ×2 (08:10→20:01)
[2022-04-02] MEDS ORDERED: OLANZapine 5 MG TAB PO SCH (09:00)
[2022-04-02] MEDS: BUPRENORPHINE/NALOXONE 8-2MG SUBLINGUAL TABLET(SUBOXONE) SL SCH ×2 (09:47→16:45)
[2022-04-02] MEDS: SODIUM CHLORIDE NASAL 0.65% SPRAY BTL (OCEAN) PRN (13:09)
[2022-04-02] MEDS: OLANZapine ORAL DISINTEGRATING TAB 5MG PO PRN (14:30)
[2022-04-02 17:59] VITALS: BP 140/82
[2022-04-02] MEDS: OLANZapine 5 MG TAB PO SCH (20:02)
[2022-04-03] MEDS: IBUPROFEN 600MG TAB PO PRN ×2 (06:19→15:23)
[2022-04-03 07:08] VITALS: BP 141/81
[2022-04-03] MEDS: diphenhydrAMINE 50MG CAP PO PRN ×2 (07:11→13:20)
[2022-04-03] MEDS: OLANZapine ORAL DISINTEGRATING TAB 5MG PO PRN (07:12)
[2022-04-03] MEDS: DIVALPROEX 250MG *ER* TAB PO SCH ×2 (08:28→20:11)
[2022-04-03] MEDS: BUPRENORPHINE/NALOXONE 8-2MG SUBLINGUAL TABLET(SUBOXONE) SL SCH ×2 (08:28→15:45)
[2022-04-03] MEDS: LACTIC ACID 12% LOTION 225 GM BTL EXT SCH ×2 (08:32→20:11)
[2022-04-03 17:45] VITALS: BP 124/81
[2022-04-03] MEDS: OLANZapine 5 MG TAB PO SCH (20:11)
[2022-04-03] MEDS: traZODone 100 MG TAB PO PRN (20:11)
[2022-04-03] MEDS: SODIUM CHLORIDE NASAL 0.65% SPRAY BTL (OCEAN) PRN (21:44)
[2022-04-04] MEDS: IBUPROFEN 600MG TAB PO PRN ×2 (04:16→15:00)
[2022-04-04 06:33] VITALS: BP 136/83
[2022-04-04] MEDS: NICOTINE 21MG/24HR 1 EA TRANSDERMAL TD PRN (07:35)
[2022-04-04] MEDS: BUPRENORPHINE/NALOXONE 8-2MG SUBLINGUAL TABLET(SUBOXONE) SL SCH ×2 (08:25→16:26)
[2022-04-04] MEDS: LACTIC ACID 12% LOTION 225 GM BTL EXT SCH ×2 (08:25→20:05)
[2022-04-04] MEDS: DIVALPROEX 250MG *ER* TAB PO SCH ×2 (08:25→20:02)
[2022-04-04] MEDS: SODIUM CHLORIDE NASAL 0.65% SPRAY BTL (OCEAN) PRN ×2 (08:25→12:46)
[2022-04-04 18:05] VITALS: BP 148/79
[2022-04-04] MEDS: MOM 30ML SUSPENSION UDC PO PRN (19:24)
[2022-04-04] MEDS: diphenhydrAMINE 50MG CAP PO PRN (20:02)
[2022-04-04] MEDS: OLANZapine 5 MG TAB PO SCH (20:02)
[2022-04-04] MEDS: traZODone 100 MG TAB PO PRN (20:02)
[2022-04-05] MEDS: SODIUM CHLORIDE NASAL 0.65% SPRAY BTL (OCEAN) PRN ×2 (00:04→07:25)
[2022-04-05] MEDS: IBUPROFEN 600MG TAB PO PRN ×2 (04:48→16:24)
[2022-04-05 06:37] VITALS: BP 135/76
[2022-04-05] MEDS: DIVALPROEX 250MG *ER* TAB PO SCH ×2 (08:01→20:43)
[2022-04-05] MEDS: NICOTINE 21MG/24HR 1 EA TRANSDERMAL TD PRN (08:01)
[2022-04-05] MEDS: LACTIC ACID 12% LOTION 225 GM BTL EXT SCH ×2 (08:01→20:46)
[2022-04-05] MEDS: BUPRENORPHINE/NALOXONE 8-2MG SUBLINGUAL TABLET(SUBOXONE) SL SCH ×2 (10:12→16:49)
[2022-04-05 18:38] VITALS: BP 119/68
[2022-04-05] MEDS: OLANZapine 5 MG TAB PO SCH (20:44)
[2022-04-06 06:10] VITALS: BP 126/76
[2022-04-06] MEDS: DIVALPROEX 250MG *ER* TAB PO SCH ×2 (08:29→20:03)
[2022-04-06] MEDS: BUPRENORPHINE/NALOXONE 8-2MG SUBLINGUAL TABLET(SUBOXONE) SL SCH ×2 (08:29→16:44)
[2022-04-06] MEDS: NICOTINE 21MG/24HR 1 EA TRANSDERMAL TD PRN (08:30)
[2022-04-06] MEDS: LACTIC ACID 12% LOTION 225 GM BTL EXT SCH ×2 (08:30→21:00)
[2022-04-06] MEDS: diphenhydrAMINE 50MG CAP PO PRN (16:57)
[2022-04-06 18:36] VITALS: BP 138/89
[2022-04-06] MEDS: MAALOX 30 ML SUSP *UDC PO PRN (19:04)
[2022-04-06] MEDS: traZODone 100 MG TAB PO PRN (20:03)
[2022-04-06] MEDS: OLANZapine 5 MG TAB PO SCH (20:03)
[2022-04-06] MEDS: IBUPROFEN 600MG TAB PO PRN (20:04)
[2022-04-07 07:00] VITALS: BP 145/89
[2022-04-07] MEDS: LACTIC ACID 12% LOTION 225 GM BTL EXT SCH ×2 (08:07→20:05)
[2022-04-07] MEDS: BUPRENORPHINE/NALOXONE 8-2MG SUBLINGUAL TABLET(SUBOXONE) SL SCH ×2 (08:08→16:29)
[2022-04-07] MEDS: DIVALPROEX 250MG *ER* TAB PO SCH ×2 (08:08→20:04)
[2022-04-07] MEDS: NICOTINE 21MG/24HR 1 EA TRANSDERMAL TD PRN (08:10)
[2022-04-07] MEDS: IBUPROFEN 600MG TAB PO PRN ×2 (12:04→21:29)
[2022-04-07 18:25] VITALS: BP 136/80
[2022-04-07] MEDS: diphenhydrAMINE 50MG CAP PO PRN (20:04)
[2022-04-07] MEDS: traZODone 100 MG TAB PO PRN (20:04)
[2022-04-07] MEDS: OLANZapine 5 MG TAB PO SCH (20:04)
[2022-04-08] MEDS: IBUPROFEN 600MG TAB PO PRN (04:58)
[2022-04-08] MEDS: SODIUM CHLORIDE NASAL 0.65% SPRAY BTL (OCEAN) PRN (05:36)
[2022-04-08 06:27] VITALS: BP 136/75
[2022-04-08] MEDS: LACTIC ACID 12% LOTION 225 GM BTL EXT SCH (08:10)
[2022-04-08] MEDS: BUPRENORPHINE/NALOXONE 8-2MG SUBLINGUAL TABLET(SUBOXONE) SL SCH (08:11)
[2022-04-08] MEDS: NICOTINE 21MG/24HR 1 EA TRANSDERMAL TD PRN (08:11)
[2022-04-08] MEDS: DIVALPROEX 250MG *ER* TAB PO SCH (09:23)
[2022-04-08] MEDS ORDERED: TRAZ-257 PO (09:47)
[2022-04-08] MEDS ORDERED: DEPA250T2 PO (09:47)
[2022-04-08] MEDS ORDERED: OLAN1TAB16 PO (09:47)
[2022-04-08] MEDS ORDERED: DIPH50CA PO ×2 (09:47→09:49)
== END 2022-04-08 11:49 | disposition home or self-care (01) | DRG 753 ==
LOC: M ED 12:00 → M ED INP 03-18 23:00 → M PSY 03-18 23:40
PROVIDERS: ADMIT Psychiatry & Neurology Psychiatry; ATTEND Psychiatry & Neurology Psychiatry
DX: F31.2 Bipolar disorder, current episode manic severe with psychotic features (principal); Z78.1 Physical restraint status; Z88.8 Allergy status to other drugs, medicaments and biological substances; Z79.899 Other long term (current) drug therapy; F17.200 Nicotine dependence, unspecified, uncomplicated

== ENCOUNTER → 2023-11-11 | Outpatient (REF) | payer OTHER ==
[~2023-11-11] MED LIST changes: -ARIP1TAB43 PO; +ARIP20TA51 PO; +BUPR-597 PO; +BUPR150T12 PO; -BUPR300T92 PO; +DEPA250T2 PO; +DIPH50CA PO; +OLAN15TA69 PO; +OLAN1TAB16 PO; +TRAZ-257 PO
[2023-11-11 18:53] LABS: ALBUMIN 3.5 G/DL (3.2-5.2); ALKALINE PHOSPHATASE 102 U/L (46-116); ALT/SGPT 51 U/L (7.0-40); AST/SGOT 23 U/L (<34); BILIRUBIN,TOTAL 0.3 MG/DL (0.3-1.2); BLOOD UREA NITROGEN 11 MG/DL (9-23); CALCIUM LEVEL 9.1 MG/DL (8.5-10.1); CARBON DIOXIDE LEVEL 29 MMOL/L (20-31); CHLORIDE LEVEL 103 MMOL/L (98-107); CHOLESTEROL LEVEL 216 MG/DL (<200); CHOLESTEROL RISK RATIO 5.85 (<5); CREATININE FOR GFR 0.91 MG/DL (0.70-1.30); GLOMERULAR FILTRATION RATE > 60.0 (>60); GLUCOSE, FASTING 86 MG/DL (60-100); HDL CHOLESTEROL 36.9 MG/DL (>40); LDL CHOLESTEROL 122.7 MG/DL (<100); NON-HDL-C 179.1 MG/DL; POTASSIUM SERUM 4.5 MMOL/L (3.5-5.1); SODIUM LEVEL 137 MMOL/L (136-145); THYROID STIMULATING HORMONE 9.854 uIU/ML (0.55-4.78); TOTAL PROTEIN 6.8 G/DL (5.7-8.2); TRIGLYCERIDES LEVEL 282 MG/DL (<150)
== END ==
LOC: M LAB REF 17:42
PROVIDERS: ATTEND Family Medicine Addiction Medicine
DX: E66.9 Obesity, unspecified (principal); Z68.32 Body mass index [BMI] 32.0-32.9, adult

== ENCOUNTER → 2023-11-18 | Outpatient (REF) | payer OTHER ==
[2023-11-18 16:57] LABS: THYROID STIMULATING HORMONE 9.32 uIU/ML (0.55-4.78)
== END ==
LOC: M LAB REF 16:21
PROVIDERS: ATTEND Family Medicine Addiction Medicine
DX: R94.6 Abnormal results of thyroid function studies (principal)

== ENCOUNTER 2025-01-16 10:53 | Inpatient (IN) | payer OTHER ==
[~2025-01-16] VITALS: Ht 182.9 cm; Wt 88.6 kg
[2025-01-16] VITALS (10 sets, daily range): BP systolic 103–166; BP diastolic 55–80; TEMP 96.9–98.8; O2SAT 95–99
[~2025-01-16 10:53] MED LIST changes: -BUPR-597 PO; +BUPR-766 PO; +DEPA250T PO; -DEPA250T2 PO; -DIPH50CA PO; +DIPH50CA31 PO
[2025-01-16 11:14] LABS: PLATELET COUNT, AUTOMATED 404 10^3/uL (150-450)
[2025-01-16 11:43] LABS: ETHYL ALCOHOL (ETHANOL) < 0.003 % (0.000-0.010)
[2025-01-16 11:44] LABS: ALT/SGPT 122 U/L (7.0-40); AST/SGOT 60 U/L (<34); CALCIUM LEVEL 8.7 MG/DL (8.5-10.1); CARBON DIOXIDE LEVEL 24 MMOL/L (20-31); CHLORIDE LEVEL 104 MMOL/L (98-107); CREATININE FOR GFR 0.87 MG/DL (0.70-1.30); GLOMERULAR FILTRATION RATE > 90.0 (>60); POTASSIUM SERUM 4.3 MMOL/L (3.5-5.1); SALICYLATE LEVEL < 3.0 MG/DL (<30); SODIUM LEVEL 138 MMOL/L (136-145)
[2025-01-16] MEDS: OLANZapine ORAL DISINTEGRATING TAB 5MG PO ONE (12:40)
[2025-01-16 13:17] LABS: BARBITURATES URINE NEGATIVE (NEGATIVE); BENZODIAZEPINES URINE NEGATIVE (NEGATIVE); COCAINE METABOLITE URINE NEGATIVE (NEGATIVE); METHADONE URINE NEGATIVE (NEGATIVE); OPIATES URINE NEGATIVE (NEGATIVE); PHENCYCLIDINE URINE NEGATIVE (NEGATIVE)
[2025-01-16 13:47] LABS: AMPHETAMINES LEVEL URINE POSITIVE (NEGATIVE); CANNABINOIDS URINE POSITIVE (NEGATIVE)
[2025-01-16] MEDS: HALOPERIDOL 10 MG TAB PO ONE (17:31)
[2025-01-16] MEDS: HALOPERIDOL LACTATE 5 MG/ML VIAL IM STA (17:46)
[2025-01-16] MEDS: diphenhydrAMINE 50 MG/ML VIAL IM STA (17:46)
[2025-01-16] MEDS ORDERED: VENTAER INH (17:55)
[2025-01-16] MEDS ORDERED: ARIP1TAB6 PO (17:55)
[2025-01-16] MEDS ORDERED: DIVA500T9 PO (17:55)
[2025-01-16] MEDS ORDERED: HOME MED LIST COMPLETE! XX SCH (17:55)
[2025-01-17] MEDS: OLANZapine 5 MG TAB PO SCH (09:22)
[2025-01-17] MEDS: DIVALPROEX 500 MG TAB PO SCH (09:23)
[2025-01-17] MEDS ORDERED: ALBUTEROL 90 MCG/ACT 8 GM HFA INHALER INH PRN (09:40)
[2025-01-17] MEDS: HALOPERIDOL 5 MG TAB PO PRN (09:42)
[2025-01-17] MEDS: BUPRENORPHINE/NALOXONE 8-2MG SUBLINGUAL TABLET(SUBOXONE) SL SCH (12:18)
[2025-01-17] MEDS: IBUPROFEN 400 MG TAB PO PRN (15:06)
[2025-01-17 15:26] VITALS: BP 132/78; TEMP 97.7; O2SAT 97
[2025-01-17] MEDS: traZODone 50 MG TAB PO PRN (22:56)
[2025-01-17] MEDS: HALOPERIDOL 10 MG TAB PO PRN (23:42)
[2025-01-18 06:40] VITALS: BP 134/86; TEMP 97.7; O2SAT 98
[2025-01-18 11:01] LABS: CHOLESTEROL LEVEL 154.0 MG/DL (<200); CHOLESTEROL RISK RATIO 3.64 (<5); LDL CHOLESTEROL 80.0 MG/DL (<100); NON-HDL-C 111.8 MG/DL; TRIGLYCERIDES LEVEL 159.0 MG/DL (<150)
[2025-01-18 11:15] LABS: ALT/SGPT 77.0 U/L (7.0-40); AST/SGOT 55.0 U/L (<34); CPK CREATINE PHOSPHOKINASE 1229.0 U/L (46-171)
[2025-01-18] MEDS: MAALOX 30 ML SUSP *UDC PO PRN (12:47)
[2025-01-18] MEDS: NICOTINE 21 MG/24 HR 1 EA TRANSDERMAL TD SCH (14:41)
[2025-01-18] MEDS: MOM 30 ML SUSPENSION UDC PO PRN (17:56)
[2025-01-18 18:20] VITALS: BP 139/79; TEMP 98
[2025-01-18] MEDS: traZODone 50 MG TAB PO ONE (21:44)
[2025-01-19] MEDS ORDERED: PALIPERIDONE 3MG ER TAB PO SCH ×2 (09:00→21:00)
[2025-01-19 15:23] VITALS: BP 137/72; TEMP 97.3; O2SAT 96
[2025-01-19] MEDS: OLANZapine 10 MG TAB PO SCH (20:11)
[2025-01-19] MEDS: DIVALPROEX 250 MG TAB PO SCH (20:11)
[2025-01-20] MEDS: ACETAMINOPHEN 325 MG TAB PO PRN (05:22)
[2025-01-20 06:55] VITALS: BP 148/73; TEMP 97.3; O2SAT 97
[2025-01-20] MEDS: HALOPERIDOL 10 MG TAB PO SCH (08:01)
[2025-01-20] MEDS: DIVALPROEX 500 MG TAB PO SCH (08:01)
[2025-01-20] MEDS ORDERED: OLANZapine 5 MG TAB PO SCH (09:00)
[2025-01-20] MEDS: OLANZapine ORAL DISINTEGRATING TAB 5MG PO PRN (10:22)
[2025-01-20] MEDS: MULTIVITAMINS/MINERALS THERAP 1 TAB PO SCH (10:43)
[2025-01-20 15:14] VITALS: BP 130/78; TEMP 97.5; O2SAT 95
[2025-01-21 06:23] VITALS: BP 135/65; TEMP 98.3; O2SAT 98
[2025-01-21] MEDS: OLANZapine ORAL DISINTEGRATING TAB 5MG PO ONE (08:25)
[2025-01-21] MEDS: NICOTINE POLACRILEX 2 MG GUM PO PRN (13:19)
[2025-01-21 16:54] VITALS: BP 125/79; TEMP 97.7; O2SAT 97
[2025-01-22 06:41] VITALS: BP 138/79; TEMP 97.7; O2SAT 98
[2025-01-22] MEDS: OLANZapine ORAL DISINTEGRATING TAB 5MG PO PRN (10:50)
[2025-01-22 14:40] VITALS: BP 138/80; TEMP 98.1; O2SAT 97
[2025-01-22] MEDS: traZODone 100 MG TAB PO PRN (20:09)
[2025-01-23] MEDS: NICOTINE POLACRILEX 2 MG GUM PO PRN (11:27)
[2025-01-23 14:50] VITALS: BP 136/85; TEMP 98.1; O2SAT 98
[2025-01-24 06:40] VITALS: BP 144/85; TEMP 98; O2SAT 97
[2025-01-24] MEDS: HALOPERIDOL DECANOATE 100 MG/ML 1 ML VIAL IM SCH (12:53)
[2025-01-24 16:12] VITALS: BP 153/76; TEMP 98; O2SAT 95
[2025-01-24] MEDS: QUEtiapine FUMARATE 50MG TAB PO SCH (20:10)
[2025-01-25 06:38] VITALS: BP 160/78; TEMP 97.2; O2SAT 95
[2025-01-25] MEDS ORDERED: DIVA-65 PO (09:03)
[2025-01-25] MEDS ORDERED: HALO10AM IM (09:03)
[2025-01-25] MEDS ORDERED: HALO10TA20 PO (09:03)
[2025-01-25] MEDS ORDERED: HALO5TAB33 PO (09:03)
[2025-01-25] MEDS ORDERED: DIVA-41 PO (09:03)
[2025-01-25] MEDS ORDERED: QUET50TA4 PO (09:03)
[2025-01-25 09:51] VITALS: BP 141/78; TEMP 97.4; O2SAT 95
[2025-01-25] MEDS ORDERED: DIPH50CA31 PO (10:38)
[2025-01-25] MEDS ORDERED: OLAN1TAB16 PO (10:38)
== END 2025-01-25 10:32 | disposition home or self-care (01) | DRG 753 ==
LOC: M ED 10:53 → M ED INP 15:26 → M PSY 16:50
PROVIDERS: ADMIT Psychiatry & Neurology Addiction Psychiatry; ATTEND Psychiatry & Neurology Addiction Psychiatry
DX: F31.2 Bipolar disorder, current episode manic severe with psychotic features (principal); Z78.1 Physical restraint status; F15.90 Other stimulant use, unspecified, uncomplicated; F12.90 Cannabis use, unspecified, uncomplicated; F11.90 Opioid use, unspecified, uncomplicated; Z62.810 Personal history of physical and sexual abuse in childhood; Z91.51 Personal history of suicidal behavior; Z56.0 Unemployment, unspecified; F17.200 Nicotine dependence, unspecified, uncomplicated; Z71.6 Tobacco abuse counseling; Z79.899 Other long term (current) drug therapy; Z88.8 Allergy status to other drugs, medicaments and biological substances; R74.01 Elevation of levels of liver transaminase levels